=== PATIENT | male | born 1955 | race Hispanic/Latino ===

== ENCOUNTER 2017-04-05 09:19 | Inpatient (IN) | payer BC ==
[2017-04-05 10:47] LABS: Basophils % (Auto) 0.4 % (0.0-1.8); Eosinophils % (Auto) 0.2 % (0.0-4.3); Hematocrit 41.8 % (35.5-45.6); Hemoglobin 14.2 gm/dl (11.8-15.2); Mean Corpuscular HGB Conc 34 % (32-34); Mean Corpuscular Hemoglobin 30 pg (28-32); Mean Corpuscular Volume 89 fl (84-94); Platelet Count 214 K/mm3 (140-440); Red Cell Distribution Width 14.3 % (13.2-15.2); White Blood Count 10.2 K/mm3 (4.5-11.0)
--- NOTE | 2017-04-05 10:53 | Emergency Department Report ---
ED Neuro Deficit HPI - General Chief Complaint: Headache Stated Complaint: POSSIBLE CVA Time Seen by Provider: 04/05/17 10:25 Source: patient, EMS Mode of arrival: Stretcher Limitations: No Limitations - History of Present Illness Initial Comments: Patient complains of left sided "sinus headache for about a week intermittently. It became somewhat worse and he went to [facility], was seen by the emergency physician there on 04/03/2017. He was diagnosed as having a posterior headache and placed on [address] and prednisone. He states that last night (04/04/2017, he noted that he was having difficulty walking due to right sided weakness. He does not complain of any difficulty with his speech. He denies any visual change. He also denies any sensory change. -: Gradual, week(s) Location: right arm, right leg Presenting Symptoms: Present: Weak/Paralyzed One Side History of same: No Place: home Severity: mild, moderate Quality: weak Improves With: none Worsens With: none On Anticoagulants: No Context: gradual onset Associated Symptoms: denies other symptoms, other (not complaining of headache now) Treatments Prior to Arrival: none - Related Data Home Medications: Home Medications Medication Instructions Recorded Confirmed Last Taken ALPRAZolam [Xanax TAB] 0.5 mg PO BID PRN 04/05/17 04/05/17 2 Days Ago Lisinopril [Zestril] 20 mg PO QDAY 04/05/17 04/05/17 1 Day Ago Paroxetine HCl [Paxil] 10 mg PO DAILY 04/05/17 04/05/17 1 Day Ago Temazepam 30 mg PO QHS 04/05/17 04/05/17 1 Day Ago amLODIPine [Norvasc] 10 mg PO DAILY 04/05/17 04/05/17 1 Day Ago Allergies/Adverse Reactions: Allergies Allergy/AdvReac Type Severity Reaction Status Date / Time No Known Allergies Allergy Unverified 04/05/17 10:14 ED Review of Systems ROS: Stated complaint: POSSIBLE CVA Other details as noted in HPI Constitutional: denies: chills, fever Eyes: denies: eye pain, eye discharge, vision change ENT: denies: ear pain, throat pain Respiratory: denies: cough, shortness of breath, wheezing Cardiovascular: denies: chest pain, palpitations Endocrine: no symptoms reported Gastrointestinal: denies: abdominal pain, nausea, diarrhea Genitourinary: denies: urgency, dysuria Musculoskeletal: denies: back pain, joint swelling, arthralgia Skin: denies: rash, lesions Neurological: headache (headache resolved), weakness (weakness since yesterday morning). denies: paresthesias Psychiatric: denies: anxiety, depression Hematological/Lymphatic: denies: easy bleeding, easy bruising ED Past Medical Hx - Past Medical History Previous Medical History?: Yes Hx Hypertension: Yes Hx Psychiatric Treatment: (anxiety) - Surgical History Past Surgical History?: No - Social History Smoking Status: Current Every Day Smoker Substance Use Type: None - Medications Home Medications: Home Medications Medication Instructions Recorded Confirmed Last Taken Type ALPRAZolam [Xanax TAB] 0.5 mg PO BID PRN 04/05/17 04/05/17 2 Days Ago History Lisinopril [Zestril] 20 mg PO QDAY 04/05/17 04/05/17 1 Day Ago History Paroxetine HCl [Paxil] 10 mg PO DAILY 04/05/17 04/05/17 1 Day Ago History Temazepam 30 mg PO QHS 04/05/17 04/05/17 1 Day Ago History amLODIPine [Norvasc] 10 mg PO DAILY 04/05/17 04/05/17 1 Day Ago History ED Neuro Physical Exam - General Limitations: No Limitations General appearance: alert, in no apparent distress Suspected Stroke: Yes - Head Head exam: Present: atraumatic, normocephalic - Eye Eye exam: Present: normal appearance. Absent: scleral icterus - ENT ENT exam: Present: mucous membranes moist - Neck Neck exam: Present: normal inspection - Respiratory Respiratory exam: Present: normal lung sounds bilaterally. Absent: respiratory distress - Cardiovascular Cardiovascular Exam: Present: regular rate, normal rhythm. Absent: systolic murmur, diastolic murmur, rubs, gallop - GI/Abdominal GI/Abdominal exam: Present: soft, normal bowel sounds. Absent: distended, tenderness, guarding, rebound, rigid - Rectal Rectal exam: Present: deferred - Extremities Exam Extremities exam: Present: normal inspection - Back Exam Back exam: Present: normal inspection - Neurological Exam Neurological exam: Present: alert, oriented X3, motor sensory deficit. Absent: CN II-XII intact - NIHSS Assessment Interval: Baseline 1a. Level of Consciousness: alert 1b. LOC Questions: answers correctly 1c. LOC Commands: performs tasks correctly 2. Best Gaze: normal 3. Visual: no visual loss 4. Facial Palsy: normal symmetrical movement 5b. Motor Arm Right: drift 5a. Motor Arm Left: no drift 6a. Motor Leg Left: no drift 6b. Motor Leg Right: drift 7. Limb Ataxia: absent 8. Sensory: normal 9. Best Language: no aphasia 10. Dysarthria: normal 11. Extinction/Inattention: no abnormality Total Score: 2 Stroke Severity: Minor Stroke - Psychiatric Psychiatric exam: Present: normal affect, normal mood - Skin Skin exam: Present: warm, dry, intact, normal color. Absent: rash ED Course Vital Signs 04/05/17 09:48 Temperature 97.7 F Pulse Rate 62 Respiratory 16 Rate Blood Pressure 147/77 O2 Sat by Pulse 97 Oximetry - Reevaluation(s) Reevaluation #1: Patient will be given aspirin and admitted to the hospitalist service. His diagnosis is left basal ganglion stroke now subacute. 04/05/17 12:21 - Lab Data Result diagrams: 04/05/17 10:33 04/05/17 10:33 Lab Results 04/05/17 04/05/17 04/05/17 Range/Units 10:33 10:33 10:33 WBC 10.2 (4.5-11.0) K/mm3 RBC 4.70 (3.65-5.03) M/mm3 Hgb 14.2 (11.8-15.2) gm/dl Hct 41.8 (35.5-45.6) % MCV 89 (84-94) fl MCH 30 (28-32) pg MCHC 34 (32-34) % RDW 14.3 (13.2-15.2) % Plt Count 214 (140-440) K/mm3 Lymph % (Auto) 17.4 (13.4-35.0) % [place] % (Auto) 8.4 H (0.0-7.3) % Eos % (Auto) 0.2 (0.0-4.3) % Baso % (Auto) 0.4 (0.0-1.8) % Lymph # 1.8 (1.2-5.4) K/mm3 [place] # 0.9 H (0.0-0.8) K/mm3 Eos # 0.0 (0.0-0.4) K/mm3 Baso # 0.0 (0.0-0.1) K/mm3 Seg Neutrophils % 73.6 H (40.0-70.0) % Seg Neutrophils # 7.5 (1.8-7.7) K/mm3 PT 13.9 (12.2-14.9) Sec. INR 1.08 (0.87-1.13) APTT 28.6 (24.2-36.6) Sec. Thrombin Time (15.1-19.6) Sec. Sodium 139 (137-145) mmol/L Potassium 3.8 (3.6-5.0) mmol/L Chloride 101.4 (98-107) mmol/L Carbon Dioxide 27 (22-30) mmol/L Anion Gap 14 mmol/L BUN 15 (9-20) mg/dL Creatinine 1.0 (0.8-1.5) mg/dL Estimated GFR > 60 ml/min BUN/Creatinine Ratio 15.00 % Glucose 103 H (75-100) mg/dL Calcium 10.0 (8.4-10.2) mg/dL Troponin T < 0.010 (0.00-0.029) ng/mL 04/05/17 Range/Units 10:33 WBC (4.5-11.0) K/mm3 RBC (3.65-5.03) M/mm3 Hgb (11.8-15.2) gm/dl Hct (35.5-45.6) % MCV (84-94) fl MCH (28-32) pg MCHC (32-34) % RDW (13.2-15.2) % Plt Count (140-440) K/mm3 Lymph % (Auto) (13.4-35.0) % [place] % (Auto) (0.0-7.3) % Eos % (Auto) (0.0-4.3) % Baso % (Auto) (0.0-1.8) % Lymph # (1.2-5.4) K/mm3 [place] # (0.0-0.8) K/mm3 Eos # (0.0-0.4) K/mm3 Baso # (0.0-0.1) K/mm3 Seg Neutrophils % (40.0-70.0) % Seg Neutrophils # (1.8-7.7) K/mm3 PT (12.2-14.9) Sec. INR (0.87-1.13) APTT (24.2-36.6) Sec. Thrombin Time 16.0 (15.1-19.6) Sec. Sodium (137-145) mmol/L Potassium (3.6-5.0) mmol/L Chloride (98-107) mmol/L Carbon Dioxide (22-30) mmol/L Anion Gap mmol/L BUN (9-20) mg/dL Creatinine (0.8-1.5) mg/dL Estimated GFR ml/min BUN/Creatinine Ratio % Glucose (75-100) mg/dL Calcium (8.4-10.2) mg/dL Troponin T (0.00-0.029) ng/mL - EKG Data -: EKG Interpreted by Me EKG shows normal: sinus rhythm Rate: normal Interpretation: LVH (consistent with LVH and repolarization abnormality. Rhythm is low atrial.) - Radiology Data Radiology results: report reviewed interpreted by me: Left basal ganglion hypodensity consistent with subacute stroke. Critical care attestation.: If time is entered above; I have spent that time in minutes in the direct care of this critically ill patient, excluding procedure time. ED Disposition Clinical Impression: CVA (cerebral vascular accident) Qualifiers: CVA mechanism: unspecified Qualified Code(s): I63.9 - Cerebral infarction, unspecified Disposition: OP ADMIT IP TO THIS HOSP Is pt being admited?: Yes Does the pt Need Aspirin: Yes Condition: Stable Referrals: PRIMARY CARE, [Primary Care Provider] - 3-5 Days Time of Disposition: 12:23
[2017-04-05 10:56] LABS: INR 1.08 (0.87-1.13)
[2017-04-05 10:57] LABS: Partial Thromboplastin Time 28.6 Sec. (24.2-36.6)
[2017-04-05 11:01] LABS: Anion Gap 14 mmol/L; Blood Urea Nitrogen 15 mg/dL (9-20); Carbon Dioxide 27 mmol/L (22-30); Chloride 101.4 mmol/L (98-107); Glucose 103 mg/dL (75-100); Potassium 3.8 mmol/L (3.6-5.0); Sodium 139 mmol/L (137-145)
--- NOTE | 2017-04-05 11:19 | Cat Scan Report ---
CT HEAD WITHOUT CONTRAST: 04/05/17 09:19:00 CLINICAL: Neuro deficits less than six hours or symptoms present upon wakening. TECHNIQUE: 2.5-mm noncontrast scans. COMPARISON:None FINDINGS: The ventricles and sulci are normal for age.A 1.2 cm irregular shaped hypodensity of the left putamen is identified on several images and is suspicious for an acute or subacute infarct. No mass or mass effect. No hemorrhage. No extra-axial collection. Several bilateral chronic basal ganglia lacunar infarcts and bilateral centrum semiovale ovale lacunar infarcts.. The sinuses are clear. Normal orbits and soft tissues. The calvarium and skull base are intact. IMPRESSION: Left basal ganglia hypodensity suspicious for an acute or subacute nonhemorrhagic infarct. Several bilateral basal ganglia and white matter chronic lacunar infarcts.
--- NOTE | 2017-04-05 12:47 | XRay Report ---
AP CHEST :04/05/17 CLINICAL: Hypertension. COMPARISON:None. FINDINGS: Normal heart and pulmonary vasculature. Prominent bilateral lung markings and bibasal reticular interstitial opacities. No airspace disease or pleural effusion. The bones and soft tissues are normal. IMPRESSION: Probably chronic bibasal reticular lung opacities.No CHF or pneumonia.
--- NOTE | 2017-04-05 14:23 | History and Physical Report ---
History of Present Illness Chief complaint: I could not move my right side at all, but now im better History of present illness: 61 YO Male with HTN, Anxiety, Nicotine Dependence presents to ED for evaluation. Pt states that he has been experiencing headaches for the past week , and was seen at [facility], by the emergency physician there on 2016. He was diagnosed as having a cluster headache and placed on [place] and prednisone. Pt states that symptoms have persisted over the past week with worsening symptoms overnight. Pt states that he experienced right sided weakness last night. Pt states that he was unable to walk, and could not use his right side. Pt denies fever, chills, CP, Palpitations, NVD, syncope, vision changes, or recent ill contacts. Past History Past Medical History: hypertension, other (anxiety, nicotine dep) Past Surgical History: No surgical history, Other (reviewed) Social history: single, smoking. denies: alcohol abuse, prescription drug abuse , IV drug use Family history: hypertension Medications and Allergies Allergies Allergy/AdvReac Type Severity Reaction Status Date / Time No Known Allergies Allergy Verified 04/05/17 15:48 Home Medications Medication Instructions Recorded Confirmed Last Taken Type ALPRAZolam [Xanax TAB] 0.5 mg PO BID PRN 04/05/17 04/05/17 2 Days Ago History Lisinopril [Zestril] 20 mg PO QDAY 04/05/17 04/05/17 1 Day Ago History Paroxetine HCl [Paxil] 10 mg PO DAILY 04/05/17 04/05/17 1 Day Ago History Temazepam 30 mg PO QHS 04/05/17 04/05/17 1 Day Ago History amLODIPine [Norvasc] 10 mg PO DAILY 04/05/17 04/05/17 1 Day Ago History Review of Systems All systems: negative Constitutional: weakness Exam - Constitutional Vitals: Temp Pulse Resp BP Pulse Ox 97.7 F 62 16 147/77 97 04/05/17 09:48 04/05/17 09:48 04/05/17 09:48 04/05/17 09:48 04/05/17 09:48 General appearance: Present: mild distress - EENT Eyes: Present: PERRL ENT: hearing intact, clear oral mucosa - Neck Neck: Present: supple, normal ROM - Respiratory Respiratory effort: normal Respiratory: bilateral: CTA - Cardiovascular Heart Sounds: Present: S1 & S2. Absent: rub, click - Extremities Extremities: pulses symmetrical, No edema Peripheral Pulses: within normal limits - Abdominal General gastrointestinal: Present: soft, non-tender, non-distended, normal bowel sounds Male genitourinary: Present: normal - Integumentary Integumentary: Present: clear, warm, dry - Musculoskeletal Musculoskeletal: right sided weakness - Psychiatric Psychiatric: appropriate mood/affect, intact judgment & insight - Neurologic Neurologic: CNII-XII intact, moves all extremities, no gait normal Results - Labs CBC & Chem 7: 04/05/17 10:33 04/05/17 10:33 Labs: Abnormal lab results 04/05/17 04/05/17 Range/Units 10:33 10:33 [place] % (Auto) 8.4 H (0.0-7.3) % [place] # 0.9 H (0.0-0.8) K/mm3 Seg Neutrophils % 73.6 H (40.0-70.0) % Glucose 103 H (75-100) mg/dL Assessment and Plan - Patient Problems (1) CVA (cerebral vascular accident) Current Visit: Yes Status: Acute Qualifiers: CVA mechanism: unspecified Precerebral and cerebral artery: P Laterality of affected vessel: L Qualified Code(s): I63.9 - Cerebral infarction, unspecified Plan to address problem: Stroke protocol: CT head, MRI/MRA brain, PT/OT/Speech therapy, antiplatelet therpay, hold BP medication, monitor bp q shift, permissive htn with systolic between 160-180. (2) Hemiparesis affecting dominant side as late effect of cerebrovascular accident Current Visit: Yes Status: Acute Plan to address problem: Pt consulted, supportive care. (3) HTN (hypertension) Current Visit: Yes Status: Acute Qualifiers: Hypertension type: H Plan to address problem: monitor bp q shift, permissive htn s/p cva. supportive care. (4) Nicotine dependence with withdrawal Current Visit: Yes Status: Acute Qualifiers: Nicotine product type: N Plan to address problem: Pt counseled, supportive care. (5) DVT prophylaxis Current Visit: Yes Status: Acute
[2017-04-05] MEDS ORDERED: ZOFRAN IV PRN (15:29)
[2017-04-05] MEDS ORDERED: SODIUM CHLORIDE FLUSH SYRINGE 10 ML IV PRN (15:29)
[2017-04-05] MEDS ORDERED: TYLENOL PO PRN (15:29)
[2017-04-05] MEDS: ZOCOR PO SCH (22:22)
[2017-04-05] MEDS: RESTORIL PO SCH (22:22)
[2017-04-05] MEDS: HABITROL TD SCH (22:23)
--- NOTE | 2017-04-06 08:23 | Progress Note ---
Assessment and Plan Assessment and plan: --acute CVA with right lower extremity weakness Not a candidate for TPA, neuro workup is in progress CT head without contrast; left basal ganglion hypodensity suspicious for acute or subacute nonhemorrhagic infarct, cerebral bilateral basal ganglia white matter chronic lacunar infarcts MRI of the brain; focal 80 of acute to subacute ischemia in the left basal ganglia, specious early chronic focal infarct or focus of demyelination and corpus callosum on the right side MRA brain: No muscle study Carotid Doppler; no hemodynamically significant stenosis Current therapy occupational therapy rehabilitation, aspirin and statin Neurology evaluation Follow echocardiogram --Hypertension; continue current antihypertensives Permissive hypertension per protocol --Dyslipidemia; continue lipid-lowering medication --Ongoing tobacco use; smoking cessation counseling done Patient strongly advised to quit tobacco use, nicotine patch as needed --DVT prophylaxis with Lovenox DC planning to case management Closely monitor the patient and adjust the management as needed Plan of care, reports of the tests discussed with the patient, family members at the bedside as well as his nurse History Interval history: Patient seen and evaluated medical records reviewed Admitted with acute CVA, neuro workup is in progress Patient feels slight right lower extremity weakness Denies any chest pain shortness of breath Alert awake oriented 3 not in acute distress Hospitalist Physical - Constitutional Vitals: Temp Pulse Resp BP Pulse Ox 97.8 F 48 L 20 141/63 100 04/06/17 04:48 04/06/17 04:48 04/06/17 04:48 04/06/17 04:48 04/06/17 04:48 General appearance: Present: no acute distress, well-nourished - EENT Eyes: Present: PERRL, EOM intact - Neck Neck: Present: supple, normal ROM - Respiratory Respiratory effort: normal Respiratory: negative: rales, rhonchi, wheezing - Cardiovascular Rhythm: regular Heart Sounds: Present: S1 & S2 - Extremities Extremities: no ischemia, pulses intact, pulses symmetrical Peripheral Pulses: within normal limits - Abdominal General gastrointestinal: soft, non-tender, non-distended, normal bowel sounds - Integumentary Integumentary: Present: clear, warm - Psychiatric Psychiatric: appropriate mood/affect, cooperative - Neurologic Neurologic: CNII-XII intact, other (right lower extremity weakness) Results - Labs CBC & Chem 7: 04/05/17 10:33 04/05/17 10:33 Labs: Laboratory Last Values WBC 10.2 K/mm3 (4.5-11.0) 04/05/17 10:33 RBC 4.70 M/mm3 (3.65-5.03) 04/05/17 10:33 Hgb 14.2 gm/dl (11.8-15.2) 04/05/17 10:33 Hct 41.8 % (35.5-45.6) 04/05/17 10:33 MCV 89 fl (84-94) 04/05/17 10:33 MCH 30 pg (28-32) 04/05/17 10:33 MCHC 34 % (32-34) 04/05/17 10:33 RDW 14.3 % (13.2-15.2) 04/05/17 10:33 Plt Count 214 K/mm3 (140-440) 04/05/17 10:33 Lymph % (Auto) 17.4 % (13.4-35.0) 04/05/17 10:33 [place] % (Auto) 8.4 % (0.0-7.3) H 04/05/17 10:33 Eos % (Auto) 0.2 % (0.0-4.3) 04/05/17 10:33 Baso % (Auto) 0.4 % (0.0-1.8) 04/05/17 10:33 Lymph # 1.8 K/mm3 (1.2-5.4) 04/05/17 10: [place] # 0.9 K/mm3 (0.0-0.8) H 04/05/17 10:33 Eos # 0.0 K/mm3 (0.0-0.4) 04/05/17 10:33 Baso # 0.0 K/mm3 (0.0-0.1) 04/05/17 10:33 Seg Neutrophils % 73.6 % (40.0-70.0) H 04/05/17 10: Seg Neutrophils # 7.5 K/mm3 (1.8-7.7) 04/05/17 10:33 PT 13.9 Sec. (12.2-14.9) 04/05/17 10:33 INR 1.08 (0.87-1.13) 04/05/17 10:33 APTT 28.6 Sec. (24.2-36.6) 04/05/17 10:33 Thrombin Time 16.0 Sec. (15.1-19.6) 04/05/17 10:33 Sodium 139 mmol/L (137-145) 04/05/17 10:33 Potassium 3.8 mmol/L (3.6-5.0) 04/05/17 10:33 Chloride 101.4 mmol/L (98-107) 04/05/17 10:33 Carbon Dioxide 27 mmol/L (22-30) 04/05/17 10:33 Anion Gap 14 mmol/L 04/05/17 10:33 BUN 15 mg/dL (9-20) 04/05/17 10:33 Creatinine 1.0 mg/dL (0.8-1.5) 04/05/17 10:33 Estimated GFR > 60 ml/min 04/05/17 10:33 BUN/Creatinine Ratio 15.00 % 04/05/17 10:33 Glucose 103 mg/dL (75-100) H 04/05/17 10:33 Calcium 10.0 mg/dL (8.4-10.2) 04/05/17 10:33 Troponin T < 0.010 ng/mL (0.00-0.029) 04/05/17 10:33
[2017-04-06] MEDS: ASPIRIN PO SCH (09:41)
[2017-04-06] MEDS: XANAX PO PRN ×2 (09:41→17:16)
[2017-04-06] MEDS: HABITROL TD SCH (09:42)
[2017-04-06] MEDS: PAXIL PO SCH (09:42)
--- NOTE | 2017-04-06 10:57 | Magnetic Resonance Report ---
MRI OF THE BRAIN WITHOUT CONTRAST: HISTORY: Stroke PROCEDURE: Multiplanar, multisequence MR imaging of the brain without IV contrast was performed. FINDINGS: A small area of diffusion restriction in the posterior left basal ganglia measures up to 1.7 x 0.9 cm in axial plane. This area of ischemia extends to the left noe radiata. There is no evidence for hemorrhage, mass or mass effect. There is also an approximate 1 cm area of questionable or weak diffusion signal in the splenium of the corpus callosum on the right side. This may represent a subacute to early chronic area of ischemia or focus of demyelination. Please correlate with the clinical history the patient. There are moderate nonspecific chronic white matter changes bilaterally. No large chronic infarct. No extra axial fluid collection. The midline structures are central. The basal cisterns are patent. Normal ventricular size. The orbital cavities and sella turcica demonstrate no abnormality. The visualized paranasal sinuses and mastoid air cells are well aerated. IMPRESSION: Focal area of acute to subacute ischemia in the left basal ganglia as described above. Slightly suspicious signal in the splenium of the corpus callosum on the right side as outlined above. This may represent an early chronic focal infarct or focus of demyelination. Nonspecific chronic white matter changes.
--- NOTE | 2017-04-06 10:57 | Magnetic Resonance Report ---
MRA HEAD WITHOUT CONTRAST HISTORY: Stroke. [id number] imaging with MIP reformations of the point lay [place] of [place] is submitted. The arteries appear widely patent and free of hemodynamically significant stenosis or aneurysm dilatation. Both vertebral arteries are identified appearing patent as well. IMPRESSION: Unremarkable MRA head.
[2017-04-06] MEDS: RESTORIL PO SCH ×2 (22:45→23:05)
[2017-04-06] MEDS: ZOCOR PO SCH (23:05)
--- NOTE | 2017-04-07 03:45 | Admit Criteria Form ---
Admission Criteria Documentation: TELEMETRY CARE Telemetry Admission Guidelines (Place 'X' for any and all applicable criteria): Admission to telemetry [A] may be indicated for ANY ONE of the following(1)(2)(3 )(4)(5): [ ]I. Cardiac disease, including ANY ONE of the following (9)(10)(11)(12)(13 ): [ ]a) Postacute TX [ ]b) Low-risk patients with ST-segment elevation TX who have undergone successful percutaneous coronary intervention [ ]c) Unstable angina [ ]d) Suspected TX (until it is ruled out) [ ]e) Post cardiac surgery (first 48 to 72 hours unless complications occur) [ ]f) Acute arrhythmias (including significant tachycardia or bradycardia) [B] [ ]g) Firing of an implantable cardioverter defibrillator [C] [ ]h) Suspected pacemaker or implantable cardioverter defibrillator malfunction (10) [ ]i) New administration or adjustment of an antiarrhythmic drug [D ] [ ]j) Child admitted for acute congestive heart failure [ ]j) Long QT syndrome [ ]k) Advanced heart block (eg, second-degree Mobitz type II, third- degree heart block) [ ]l) Acute myocarditis or pericarditis [ ]m) Short-term (ambulatory or inpatient) monitoring after a cardiac procedure as indicated by ANY ONE of the following [E]: [ ]i) Electrophysiologic studies [ ]ii) Percutaneous coronary intervention with stent placement [ ]iii) Pacemaker placement with cardiac conduction defect [ ]iv) Implantable cardiac defibrillator placement [ ]II. Drug overdose or poisoning with substance that causes arrhythmias or QT prolongation (eg, phenothiazines, sympathomimetic agents, cyclic antidepressants, digitalis, antiarrhythmic drugs)(15) [ ]III. Short-term (ambulatory or inpatient) monitoring after therapeutic or diagnostic procedure requiring conscious sedation or anesthesia (eg, endoscopy, elective cardioversion) [X ]IV. Acute cerebrovascular even[F](18) [ ]V. Massive blood transfusion (eg, at least 10 units of packed red blood cells in 24 hours) [ ]. Variceal bleeding after endoscopy, sclerotherapy, or IV vasopressin [ ]VII. Uncorrected electrolyte abnormalities associated with an increased risk of dangerous arrhythmia [G]; examples include [ ]a) Hyperkalemia with attributable ECG changes [ ]b) Potassium greater than 6.5 mmol/L (mEq/L) in a patient without history of chronic renal disease [ ]c) Prolonged QT attributed to hypokalemia, hypomagnesemia, or hypocalcemia [ ]VIII.Unexplained syncope or other neurologic event suspected of being due to arrhythmia due to a finding that increases risk; examples include(19)(20)(21): [ ]a) High-risk ECG findings (eg, bifascicular block, bradycardia, abnormal QT interval, ventricular pre- excitation) [ ]b) History of previous syncope due to arrhythmia [ ]c) Abnormal ventricular function (eg, reduced ejection fraction ) [ ]d) Exertional or supine syncope [ ]e) Concerning syncope characteristics (eg, sudden loss of consciousness without prodrome) [ ]f) Family history of sudden [ ]g) Use of arrhythmogenic medication [ ]h) Suspected cardiac ischemia [ ]i) Known channelopathy (eg, long QT syndrome, Brugada syndrome, or catecholaminergic paroxysmal ventricular tachycardia) [ ]j) Known structural heart disease (eg, hypertrophic cardiomyopathy , severe valvular disease) [ ]k) Palpitations preceding syncope The original [employer] content created by [employer] has been revised. The portions of the content which have been revised are identified through the use of italic text or in bold, and [employer] has neither reviewed nor approved the modified material. All other unmodified content is copyright [employer]. Please see references footnoted in the original [employer] edition 2016 Admission Criteria Met: Yes
[2017-04-07] MEDS: ASPIRIN PO SCH (10:06)
[2017-04-07] MEDS: PAXIL PO SCH (10:07)
[2017-04-07] MEDS: HABITROL TD SCH (10:07)
--- NOTE | 2017-04-07 11:59 | Consultation ---
History of Present Illness - Reason for Consult Consult date: 04/07/17 Evaluate for Acute IRU - History of Present Illness 61 y.o. male who presented to [facility] ED secondary to acute onset of right side weakness. Pt also with associated headache, left ear pain and blurry vision. CT Brain suspicious for acute/subacute CVA at left basal ganglia; confirmed on MRI. Right sided weakness has improved, however, pt noted to have functional deficits with self cares and mobility. Consult requested for post-acute placement recommendations. Past History Past Medical History: hypertension, other (anxiety, nicotine dep) Past Surgical History: hernia repair (umbilical) Social history: single (lives with a roommate), smoking. denies: alcohol abuse , IV drug use Family history: CAD, hypertension Medications and Allergies Allergies Allergy/AdvReac Type Severity Reaction Status Date / Time No Known Allergies Allergy Verified 04/05/17 15:48 Home Medications Medication Instructions Recorded Confirmed Last Taken Type ALPRAZolam [Xanax TAB] 0.5 mg PO BID PRN 04/05/17 04/05/17 2 Days Ago History Lisinopril [Zestril] 20 mg PO QDAY 04/05/17 04/05/17 1 Day Ago History Paroxetine HCl [Paxil] 10 mg PO DAILY 04/05/17 04/05/17 1 Day Ago History Temazepam 30 mg PO QHS 04/05/17 04/05/17 1 Day Ago History amLODIPine [Norvasc] 10 mg PO DAILY 04/05/17 04/05/17 1 Day Ago History Active Meds: Active Medications Acetaminophen (Tylenol) 650 mg PO Q4H PRN PRN Reason: Pain, Mild (1-3) Alprazolam (Xanax) 0.5 mg PO BID PRN PRN Reason: Anxiety Last Admin: 04/06/17 17:16 Dose: 0.5 mg Aspirin (Aspirin) 325 mg PO QDAY [facility] Last Admin: 04/07/17 10:06 Dose: 325 mg Nicotine (Habitrol) 21 mg TD QDAY [facility] Last Admin: 04/07/17 10:07 Dose: 21 mg Ondansetron HCl (Zofran) 4 mg IV Q8H PRN PRN Reason: N/V unrelieved by Heather Paroxetine HCl (Paxil) 10 mg PO DAILY [facility] Last Admin: 04/07/17 10:07 Dose: 10 mg Simvastatin (Zocor) 20 mg PO QHS [facility] Last Admin: 04/06/17 23:05 Dose: 20 mg Sodium Chloride (Sodium Chloride Flush Syringe 10 Ml) 10 ml IV PRN PRN PRN Reason: LINE FLUSH Temazepam (Restoril) 30 mg PO QHS [facility] Last Admin: 04/06/17 23:05 Dose: 30 mg Review of Systems All systems: negative Eyes: left: blurred vision Ears, nose, mouth and throat: ear pain (left ear) Cardiovascular: no chest pain Respiratory: no cough Gastrointestinal: no nausea, no vomiting Genitourinary Male: no dysuria Neurological: balance difficulties, gait dysfunction Exam - Constitutional Vitals: Vital Signs - 12hr 04/07/17 04/07/17 04/07/17 00:48 04:00 10:00 Temperature 98.2 F 97.5 F L Pulse Rate Pulse Rate [ 51 L 52 L Right Radial] Respiratory 18 18 Rate Blood Pressure 132/70 136/71 [Right Radial Artery] O2 Sat by Pulse 98 98 97 Oximetry 04/07/17 10:32 Temperature Pulse Rate 54 L Pulse Rate [ Right Radial] Respiratory Rate Blood Pressure [Right Radial Artery] O2 Sat by Pulse Oximetry General appearance: no acute distress - EENT Eyes: EOM intact ENT: hearing intact - Neck Neck: supple, normal ROM - Respiratory Respiratory effort: normal Respiratory: bilateral: CTA - Cardiovascular Rhythm: regular Heart Sounds: Present: S1 & S2 - Extremities Extremities: No edema - Gastrointestinal General gastrointestinal: Present: soft, non-tender, non-distended, normal bowel sounds - Musculoskeletal Musculoskeletal: right sided weakness (right arm drift; ataxic at RLE) - Neurologic Neurologic: CNII-XII intact, other (sendation grossly intact) - Psychiatric Psychiatric: appropriate mood/affect, intact judgment & insight, memory intact, cooperative - Allied health notes Allied health notes reviewed: PT ([facility]/CGA for gait; SBA/S for transfers on evaluation; pending F/U visit), OT (I-[facility] for ADLs on evaluation; follow up visit in progress) FIMS assesment as documented by PT/OT/ST: Locomotion- walk/wheelchair Ambulation Distance 70 - Labs CBC & Chem 7: 04/05/17 10:33 04/05/17 10:33 Labs: Laboratory Results - last 72 hr 04/06/17 08:01 Triglycerides 143 Cholesterol 170 LDL Cholesterol Direct 98 HDL Cholesterol 44 Cholesterol/HDL Ratio 3.86 Assessment and Plan Patient was assessed and evaluated for Acute Inpatient Rehab Unit. 61 y.o. male with acute/subacute left basal ganglia CVA; improving right hemiparesis, gait dysfunction. Rehab options discussed with patient on today. Pt previously independent; lives with roommate, however, is home alone during the day. Pt may benefit from short course on IRU to improve balance, strength; independence with ADLs and gait; limit falls risk. Pending TTE results for further neurology recommendations. Functionally, pt noted to require s/u to [facility] for ADLs with noted loss of balance; CGA for transfers and gait. Ongoing medical management for HTN. Anticipate IRU admission when medically cleared. - Patient Problems (1) CVA (cerebral vascular accident) Current Visit: Yes Status: Acute Qualifiers: CVA mechanism: unspecified Precerebral and cerebral artery: P Laterality of affected vessel: L Qualified Code(s): I63.9 - Cerebral infarction, unspecified (2) Abnormality of gait following cerebrovascular accident (CVA) Current Visit: Yes Status: Acute (3) Hemiparesis affecting dominant side as late effect of cerebrovascular accident Current Visit: Yes Status: Acute (4) HTN (hypertension) Current Visit: Yes Status: Acute Qualifiers: Hypertension type: essential hypertension Qualified Code(s): I10 - Essential (primary) hypertension
--- NOTE | 2017-04-07 12:05 | Consultation ---
History of Present Illness Consult date: 04/07/17 Requesting physician: DEX KNIGHT Reason for Consult: stroke Chief complaint: R side weakness History of present illness: 61 YO M hx HTN/Tob abuse on ASa 81mg QDay p/w R sided weakness he awoke with on 04/05 8 AM. Sx are constant. There are no clear aggravating, relieving or temporal factors. Severity was enough to cause inability to effectively use the right side. Past History Past Medical History: hypertension, other (anxiety, nicotine dep) Past Surgical History: hernia repair (umbilical) Social history: single (lives with a roommate), smoking. denies: alcohol abuse , IV drug use Family history: CAD, hypertension Medications and Allergies Allergies Allergy/AdvReac Type Severity Reaction Status Date / Time No Known Allergies Allergy Verified 04/05/17 15:48 Home Medications Medication Instructions Recorded Confirmed Last Taken Type ALPRAZolam [Xanax TAB] 0.5 mg PO BID PRN 04/05/17 04/05/17 2 Days Ago History Lisinopril [Zestril] 20 mg PO QDAY 04/05/17 04/05/17 1 Day Ago History Paroxetine HCl [Paxil] 10 mg PO DAILY 04/05/17 04/05/17 1 Day Ago History Temazepam 30 mg PO QHS 04/05/17 04/05/17 1 Day Ago History amLODIPine [Norvasc] 10 mg PO DAILY 04/05/17 04/05/17 1 Day Ago History Active Meds: Active Medications Acetaminophen (Tylenol) 650 mg PO Q4H PRN PRN Reason: Pain, Mild (1-3) Alprazolam (Xanax) 0.5 mg PO BID PRN PRN Reason: Anxiety Last Admin: 04/06/17 17:16 Dose: 0.5 mg Clopidogrel Bisulfate (Plavix) 75 mg PO QDAY [facility] Nicotine (Habitrol) 21 mg TD QDAY [facility] Last Admin: 04/07/17 10:07 Dose: 21 mg Ondansetron HCl (Zofran) 4 mg IV Q8H PRN PRN Reason: N/V unrelieved by Reglan Paroxetine HCl (Paxil) 10 mg PO DAILY [facility] Last Admin: 04/07/17 10:07 Dose: 10 mg Simvastatin (Zocor) 20 mg PO QHS [facility] Last Admin: 04/06/17 23:05 Dose: 20 mg Sodium Chloride (Sodium Chloride Flush Syringe 10 Ml) 10 ml IV PRN PRN PRN Reason: LINE FLUSH Temazepam (Restoril) 30 mg PO QHS [facility] Last Admin: 04/06/17 23:05 Dose: 30 mg Review of Systems All systems: negative Neurological: weakness, change in speech (slurred), gait dysfunction, motor disturbance, no parathesias, no numbness, no tingling, no syncope, no headaches , no aphasia, no sensory deficit, no double vision Physical Examination - Vital Signs Vital Signs: Vital Signs Temp Pulse Resp BP Pulse Ox 97.7 F 62 16 147/77 97 04/05/17 09:48 04/05/17 09:48 04/05/17 09:48 04/05/17 09:48 04/05/17 09:48 - Constitutional General appearance: comfortable, older than stated age - EENT EENT: Present: ATNC, PERRL, mucous membranes moist, hearing intact, vision intact - Respiratory Respiratory: Present: chest non-tender, normal breath sounds, no respiratory distress - Cardiovascular Cardiovascular: Present: regular rate Extremities: Present: no peripheral edema bilatateraly, no clubbing, cyanosis, no inflammation, no ischemia or petechiae - Gastrointestinal Gastrointestinal: Present: normoactive bowel sounds, soft, non-distended - Integumentary Integumentary: Present: normal - Neurologic Cranial nerve examination: PERRL, EOMI, VFF, V1/V2/V3 grossly intact, face symmetric, tongue midline, intact, Intact Vestibulo-ocular r, intact corneal reflex, facial droop (on R mild), normal palatal elevation Speech examination: other (slurred speech) Sensorimotor examination: pronator drift (R pronator drift), hemiparesis (on R) Detailed motor examination: grossly full strength in Motor examination - right side: 55: biceps, triceps, wrist flexion, wrist extension, dish machine operator, hip flexors, knee extensors, dorsiflexion, toe extension (EHL) , plantarflexion Motor examination - left side: 55: biceps, triceps, wrist flexion, wrist extension, dish machine operator, hip flexors, knee extensors, dorsiflexion, toe extension (EHL) , plantarflexion Detailed sensory examination: intact, light touch, temperature Reflex and gait examination: Babinski's sign (on R) Reflexes: 0: ankle, 3+: bicep, knee, tricep Cerebellar examination: ataxia (on RUE/LE ) - Musculoskeletal Musculoskeletal: Present: no fluid collection, no pain, normal range of motion - Psychiatric Psychiatric: Present: mood/affect appropriate, cooperative Results - Laboratory Findings CBC and BMP: 04/05/17 10:33 04/05/17 10:33 Assessment and Plan 61 YO M hx HTN/Tob abuse on ASA 81mg QDay p/w R ataxic hemiparesis syndrome confirmed on MRI brain as L basal ganglia acute lacunar appearing infarction. CDs neg. LDL 98. MRA Head neg. TTE result pending. Plan and Recommendation: 1. No indication for pharmacologic thrombolysis with IV tPA or mechanical thrombectomy due to last known normal > 6 hrs from presentation. Current NIHSS 4. 2. Telemetry bed w/ Q4 hour neuro checks 3. TTE to eval for possible cardiac source of embolism result 4. Autoregulate SBP to goal 120-160 as pt is outside permissive HTN window. 5. Secondary stroke prevention: D/C ASA. Start Plavix 75mg QDay. Upgrade to full dose statin therapy (Crestor 20mg or 40mg OR Lipitor 40mg or 80mg Daily OR Zocor 40mg QDay) for goal LDL < 70. 6. F/E/N: isotonic IVF prn, prn replete, bedside speech/swallow eval prior to PO intake. 7. DVT Prophylaxis 8. Stroke education, PT/OT/Speech Therapy consults, CM evaluation 9. For any changes in neurologic status, pls obtain STAT CTH w/o contrast and call neurology 10. If pt remains stable and TTE w/o acute thrombus, no neurologic contraindication to discharge w/ outpt neuro follow up.
[2017-04-07] MEDS: XANAX PO PRN (16:23)
--- NOTE | 2017-04-07 17:28 | Progress Note ---
Assessment and Plan Assessment and plan: --acute CVA with right lower extremity weakness Not a candidate for TPA, neuro workup is in progress, antiplatelets and statins CT head without contrast; left basal ganglion hypodensity suspicious for acute or subacute nonhemorrhagic infarct, cerebral bilateral basal ganglia white matter chronic lacunar infarcts MRI of the brain; focal area of acute to subacute ischemia in the left basal ganglia, specious early chronic focal infarct or focus of demyelination and corpus callosum on the right side MRA brain: No muscle study Carotid Doppler; no hemodynamically significant stenosis --physical therapy occupational therapy rehabilitation, aspirin and statin Neurology evaluation noted and appreciated Follow echocardiogram --Hypertension; continue current antihypertensives Permissive hypertension per protocol --Dyslipidemia; continue lipid-lowering medication --Ongoing tobacco use; smoking cessation counseling done Patient strongly advised to quit tobacco use, nicotine patch as needed --DVT prophylaxis with Lovenox DC planning to case management Closely monitor the patient and adjust the management as needed Plan of care, reports of the tests discussed with the patient, family members at the bedside as well as his nurse History Interval history: Since seen and evaluated medical records reviewed No new events reported by the nursing staff Admitted with acute CVA, neuro workup is in progress Alert awake oriented 3 not in acute distress, vital signs reviewed Hospitalist Physical - Constitutional Vitals: Temp Pulse Resp BP Pulse Ox 97.5 F L 54 L 18 136/71 97 04/07/17 04:00 04/07/17 10:32 04/07/17 04:00 04/07/17 04:00 04/07/17 10:00 General appearance: Present: no acute distress, cachectic - EENT Eyes: Present: PERRL, EOM intact - Neck Neck: Present: supple, normal ROM - Respiratory Respiratory effort: normal Respiratory: bilateral: diminished, negative: rales, rhonchi, wheezing - Cardiovascular Rhythm: regular Heart Sounds: Present: S1 & S2 - Extremities Extremities: no ischemia, pulses intact, pulses symmetrical Peripheral Pulses: within normal limits - Abdominal General gastrointestinal: soft, non-tender, non-distended, normal bowel sounds - Integumentary Integumentary: Present: clear, warm - Psychiatric Psychiatric: appropriate mood/affect, cooperative - Neurologic Neurologic: other (right lower extremity weakness) Results - Labs CBC & Chem 7: 04/05/17 10:33 04/05/17 10:33 Labs: Laboratory Last Values WBC 10.2 K/mm3 (4.5-11.0) 04/05/17 10:33 RBC 4.70 M/mm3 (3.65-5.03) 04/05/17 10:33 Hgb 14.2 gm/dl (11.8-15.2) 04/05/17 10:33 Hct 41.8 % (35.5-45.6) 04/05/17 10:33 MCV 89 fl (84-94) 04/05/17 10: MCH 30 pg (28-32) 04/05/17 10: MCHC 34 % (32-34) 04/05/17 10: RDW 14.3 % (13.2-15.2) 04/05/17 10: Plt Count 214 K/mm3 (140-440) 04/05/17 10:33 Lymph % (Auto) 17.4 % (13.4-35.0) 04/05/17 10:33 [place] % (Auto) 8.4 % (0.0-7.3) H 04/05/17 10:33 Eos % (Auto) 0.2 % (0.0-4.3) 04/05/17 10:33 Baso % (Auto) 0.4 % (0.0-1.8) 04/05/17 10:33 Lymph # 1.8 K/mm3 (1.2-5.4) 04/05/17 10:33 [place] # 0.9 K/mm3 (0.0-0.8) H 04/05/17 10:33 Eos # 0.0 K/mm3 (0.0-0.4) 04/05/17 10:33 Baso # 0.0 K/mm3 (0.0-0.1) 04/05/17 10:33 Seg Neutrophils % 73.6 % (40.0-70.0) H 04/05/17 10: Seg Neutrophils # 7.5 K/mm3 (1.8-7.7) 04/05/17 10:33 PT 13.9 Sec. (12.2-14.9) 04/05/17 10:33 INR 1.08 (0.87-1.13) 04/05/17 10:33 APTT 28.6 Sec. (24.2-36.6) 04/05/17 10:33 Thrombin Time 16.0 Sec. (15.1-19.6) 04/05/17 10:33 Sodium 139 mmol/L (137-145) 04/05/17 10:33 Potassium 3.8 mmol/L (3.6-5.0) 04/05/17 10:33 Chloride 101.4 mmol/L (98-107) 04/05/17 10:33 Carbon Dioxide 27 mmol/L (22-30) 04/05/17 10:33 Anion Gap 14 mmol/L 04/05/17 10:33 BUN 15 mg/dL (9-20) 04/05/17 10:33 Creatinine 1.0 mg/dL (0.8-1.5) 04/05/17 10:33 Estimated GFR > 60 ml/min 04/05/17 10:33 BUN/Creatinine Ratio 15.00 % 04/05/17 10:33 Glucose 103 mg/dL (75-100) H 04/05/17 10:33 Calcium 10.0 mg/dL (8.4-10.2) 04/05/17 10:33 Troponin T < 0.010 ng/mL (0.00-0.029) 04/05/17 10:33 Triglycerides 143 mg/dL (2-149) 04/06/17 08:01 Cholesterol 170 mg/dL (50-199) 04/06/17 08:01 LDL Cholesterol Direct 98 mg/dL (50-130) 04/06/17 08:01 HDL Cholesterol 44 mg/dL (40-59) 04/06/17 08:01 Cholesterol/HDL Ratio 3.86 % 04/06/17 08:01
[2017-04-07] MEDS ORDERED: XANAX PO ONE (21:00)
[2017-04-07] MEDS: ZOCOR PO SCH (21:15)
[2017-04-07] MEDS: RESTORIL PO SCH (21:15)
[2017-04-08] MEDS: PAXIL PO SCH (09:44)
[2017-04-08] MEDS: HABITROL TD SCH (09:44)
[2017-04-08] MEDS ORDERED: PLAVIX PO SCH (10:00)
[2017-04-08] MEDS: XANAX PO PRN (10:56)
--- NOTE | 2017-04-08 12:58 | Discharge Summary ---
Providers - Providers Date of Admission: 04/05/17 15:29 Date of discharge: 04/08/17 Attending physician: DEX KNIGHT 04/07/17 08:01 Consult to Physician [CONS] Routine Consulting Provider: MELLISA MONTILLA Reason For Exam: acute CVA Place consult to:: Carmen Roberts Notified:: left message Phone number called:: [phone] 04/07/17 11:18 Consult Acute Rehabilitation [CONS] Routine Consulting Provider: TAMIR WILLINGHAM Reason For Exam: ACUTE REHAB Primary care physician: [employer] Hospitalization Condition: Stable Disposition: [id number] INPT REHAB FACILITY Core Measure Documentation - Palliative Care Palliative Care/ Comfort Measures: Not Applicable - Core Measures Any of the following diagnoses?: stroke - Stroke Discharge Requirements Statin for LDL = or >70 mg/dl on DC: Yes Anticoag for atrial fib/atrial flutter: Not Applicable (no afib/flutter) Antithrombotic for ischemic stroke: Yes Exam - Constitutional Vitals: Temp Pulse Resp BP Pulse Ox 98.2 F 54 L 76 H 166/88 98 04/08/17 12:36 04/08/17 12:36 04/08/17 12:36 04/08/17 12:36 04/08/17 12:36 General appearance: Present: no acute distress, well-nourished, other (thin built) - EENT Eyes: Present: PERRL, EOM intact - Neck Neck: Present: supple, normal ROM - Respiratory Respiratory effort: normal Respiratory: negative: rales, rhonchi, wheezing - Cardiovascular Rhythm: regular Heart Sounds: Present: S1 & S2 - Extremities Extremities: no ischemia, pulses intact, pulses symmetrical Peripheral Pulses: within normal limits - Abdominal General gastrointestinal: Present: soft, non-tender, non-distended, normal bowel sounds - Integumentary Integumentary: Present: clear, warm - Musculoskeletal Musculoskeletal: right sided weakness - Psychiatric Psychiatric: appropriate mood/affect, cooperative - Neurologic Neurologic: other (rt weakness) Plan Activity: advance as tolerated Diet: other (cardiac diet) Special Instructions: physical therapy, occupational therapy (rehab) Additional Instructions: transfer to acute rehab unit today Follow up with: ZE MARTINEZ MD [Primary Care Provider] - 3-5 Days DOREEN ARIZA MD [Staff Physician] - 7 Days Prescriptions: Clopidogrel [Plavix] 75 mg PO QDAY #30 tablet Nicotine [Habitrol] 21 mg TD QDAY #30 patch
[2017-04-08 16:50] VITALS: BP 195/91
--- NOTE | 2017-04-09 12:05 | Vascular Lab Report ---
CAROTID DUPLEX STUDY: RIGHT PSVEDV CCA PROX: 8313 CCA DIST: 9821 ICA PROX:[id number] ICA MID: 7016 ICA DIST: 8022 ECA: [id number] VERT: 71 17 LEFT PSVEDV CCA PROX:[id number] CCA DIST:[id number] ICA PROX: 7418 ICA MID: 7723 ICA DIST:7322 ECA: 32901 VERT: 61 15 REASON FOR EXAM: Stroke. COMMENTS ON THE RIGHT: Doppler frequency analysis is consistent with 16 to 49 percent diameter reduction of the internal carotid artery. Some plaque noted in the carotid bulb. The common carotid artery is patent. The external carotid artery is patent with significantly elevated flow velocity suggesting stenosis.. The vertebral artery has antegrade flow. COMMENTS ON THE LEFT: Doppler frequency analysis is consistent with 16 to 49 percent diameter reduction of the internal carotid artery. Minimal amount of plaque is seen. The common carotid artery is patent. The external carotid artery is patent. The vertebral artery has antegrade flow. IMPRESSION: Less than 50% diameter reduction in the internal carotid arteries bilaterally. Right external carotid artery stenosis. Clinical correlation recommended. Followup study with CT or MR should be considered
== END 2017-04-08 16:00 | DRG 65 ==
LOC: ED 09:19 → 4A 15:29
PROVIDERS: ADMIT Internal Medicine; ATTEND Internal Medicine
DX: I63.9 Cerebral infarction, unspecified (principal); G81.91 Hemiplegia, unspecified affecting right dominant side; F41.9 Anxiety disorder, unspecified; F17.200 Nicotine dependence, unspecified, uncomplicated; I10 Essential (primary) hypertension; R26.9 Unspecified abnormalities of gait and mobility; E78.5 Hyperlipidemia, unspecified; Z82.49 Family history of ischemic heart disease and other diseases of the circulatory system; Z71.6 Tobacco abuse counseling
CPT/HCPCS: 36415; 70450; 70544; 70551; 71010; 80048; 80061; 84484; 85025; 85610; 85670; 85730; 93005; 93010; 93306; 93880; 99406

== ENCOUNTER 2017-04-30 11:37 | Inpatient (IN) | payer BC ==
[2017-04-30 12:37] LABS: Basophils % (Auto) 1.1 % (0.0-1.8); Eosinophils % (Auto) 1.4 % (0.0-4.3); Hematocrit 38.9 % (35.5-45.6); Hemoglobin 13.2 gm/dl (11.8-15.2); Mean Corpuscular HGB Conc 34 % (32-34); Mean Corpuscular Hemoglobin 30 pg (28-32); Mean Corpuscular Volume 89 fl (84-94); Platelet Count 217 K/mm3 (140-440); Red Blood Count 4.37 M/mm3 (3.65-5.03); Red Cell Distribution Width 13.2 % (13.2-15.2); White Blood Count 6.7 K/mm3 (4.5-11.0)
[2017-04-30 12:54] LABS: Anion Gap 17 mmol/L; Blood Urea Nitrogen 9 mg/dL (9-20); Calcium 10.1 mg/dL (8.4-10.2); Carbon Dioxide 27 mmol/L (22-30); Chloride 98.8 mmol/L (98-107); Glucose 98 mg/dL (75-100); Potassium 4.5 mmol/L (3.6-5.0); Sodium 138 mmol/L (137-145)
[2017-04-30 13:21] LABS: Urine Drugs of Abuse Note Disclamer
[2017-04-30 13:28] LABS: Bilirubin,Urine NEG (Negative); Blood,Urine SM (Negative); Ketones,Urine NEG (Negative); Leukocyte Esterase,Urine NEG (Negative); Nitrite,Urine NEG (Negative); Protein,Urine <15 mg/dL mg/dL (Negative); Urobilinogen,Urine < 2.0 mg/dL (<2.0)
[2017-04-30] MEDS ORDERED: ATIVAN IM PRN (16:52)
[2017-04-30] MEDS ORDERED: NACL 0.9% 1000 ML 1,000 ML IV ONE (16:52)
--- NOTE | 2017-04-30 16:53 | Emergency Department Report ---
ED General Adult HPI - General Chief complaint: Psych Stated complaint: SUICIDAL Time Seen by Provider: 04/30/17 16:36 Source: patient, EMS (ems notes not available at time of chart dictation), RN notes reviewed, old records reviewed Mode of arrival: Stretcher Limitations: Physical Limitation - History of Present Illness Initial comments: This is a 62-year-old male. He is previously unknown to me. Patient has a past medical history of stroke at the left basal ganglia, with some residual right upper extremity and right lower extremity weakness, and some dysphagia. The patient is brought to the hospital today with suicidal plan to use a gun. Apparently the patient's ex- contacted 911. The patient admits to having gums, and the patient's ex- indicates that the guns are currently on lockdown. The patient has not tried to overdose on anything. He is suicidal, but is not experiencing hallucinations. His symptoms are constant since his stroke. The patient also describes chest pressure, burning and tightness, difficulty swallowing, total body aching, headache, and generalized malaise. The symptoms have been very since his stroke. His chest tightness started at 4:00 in the morning. It is constant, does not radiate to the back, arms or neck. He also describes bilateral extremity cramping. He also describes abdominal cramping and pain. There is no vomiting. No hematemesis. There is no bright red blood per rectum. He denies irritative and obstructive urinary symptoms. -: Gradual Location: head (the patient also complains of headache and throbbing), chest, abdomen Quality: aching Consistency: constant Improves with: none Worsens with: none Associated Symptoms: chest pain, headaches, loss of appetite, malaise, shortness of breath, weakness - Related Data Previous Rx's Medication Instructions Recorded Last Taken Type ALPRAZolam [Xanax TAB] 0.25 mg PO QID PRN #90 tablet 04/17/17 Unknown Rx Clopidogrel [Plavix] 75 mg PO QDAY #30 tablet 04/17/17 Unknown Rx Lisinopril [Zestril TAB] 20 mg PO QDAY #30 tablet 04/17/17 Unknown Rx Naphazoline/Phenira 0.025/0.3% 2 drops OS QDAY bottle 04/17/17 Unknown Rx [Visine-A] Nicotine [Habitrol] 21 mg TD QDAY #30 patch 04/17/17 Unknown Rx PARoxetine [Paxil] 10 mg PO DAILY #30 tablet 04/17/17 Unknown Rx Simvastatin [Zocor TAB] 20 mg PO QHS #30 tablet 04/17/17 Unknown Rx Temazepam 30 mg PO QHS #30 capsule 04/17/17 Unknown Rx amLODIPine [Norvasc] 5 mg PO QDAY #30 tablet 04/17/17 Unknown Rx Allergies Allergy/AdvReac Type Severity Reaction Status Date / Time No Known Allergies Allergy Verified 04/05/17 15:48 ED Review of Systems ROS: Stated complaint: SUICIDAL Other details as noted in HPI Constitutional: malaise, weakness Eyes: denies: vision change ENT: denies: epistaxis Respiratory: cough, shortness of breath Cardiovascular: chest pain Gastrointestinal: abdominal pain Genitourinary: as per HPI Musculoskeletal: as per HPI, arthralgia, myalgia Skin: as per HPI Neurological: weakness Psychiatric: anxiety, depression, suicidal thoughts. denies: homicidal thoughts ED Past Medical Hx - Past Medical History Hx Hypertension: Yes Hx CVA: Yes Hx Congestive Heart Failure: No Hx Diabetes: No Hx Psychiatric Treatment: (anxiety) Hx Asthma: No Hx COPD: No - Surgical History Hx Pacemaker: No - Social History Smoking Status: Former Smoker Substance Use Type: None - Medications Home Medications: Home Medications Medication Instructions Recorded Confirmed Last Taken Type ALPRAZolam [Xanax TAB] 0.25 mg PO QID PRN #90 tablet 04/17/17 04/30/17 Unknown Rx Clopidogrel [Plavix] 75 mg PO QDAY #30 tablet 04/17/17 04/30/17 Unknown Rx Lisinopril [Zestril TAB] 20 mg PO QDAY #30 tablet 04/17/17 04/30/17 Unknown Rx Naphazoline/Phenira 0.025/0.3% 2 drops OS QDAY bottle 04/17/17 04/30/17 Unknown Rx [Visine-A] Nicotine [Habitrol] 21 mg TD QDAY #30 patch 04/17/17 04/30/17 Unknown Rx PARoxetine [Paxil] 10 mg PO DAILY #30 tablet 04/17/17 04/30/17 Unknown Rx Simvastatin [Zocor TAB] 20 mg PO QHS #30 tablet 06/22/17 07/05/17 Unknown Rx Temazepam 30 mg PO QHS #30 capsule 04/17/17 04/30/17 Unknown Rx amLODIPine [Norvasc] 5 mg PO QDAY #30 tablet 04/17/17 04/30/17 Unknown Rx ED Physical Exam - General Limitations: Physical Limitation General appearance: alert, in no apparent distress - Head Head exam: Present: atraumatic, normocephalic - Eye Eye exam: Present: normal appearance, PERRL, EOMI. Absent: nystagmus - ENT ENT exam: Present: normal exam, normal orophraynx, mucous membranes moist, normal external ear exam - Neck Neck exam: Present: normal inspection, full ROM. Absent: tenderness, meningismus - Respiratory Respiratory exam: Present: normal lung sounds bilaterally. Absent: respiratory distress, wheezes, rales, rhonchi, stridor, chest wall tenderness, accessory muscle use, decreased breath sounds, prolonged expiratory - Cardiovascular Cardiovascular Exam: Present: regular rate, normal rhythm, normal heart sounds. Absent: bradycardia, tachycardia, irregular rhythm, systolic murmur, diastolic murmur, rubs, gallop - GI/Abdominal GI/Abdominal exam: Present: soft, tenderness, normal bowel sounds, other (there is left periumbilical and left upper quadrant tenderness. There is no rebound, guarding or peritoneal signs.). Absent: distended, guarding, rebound, rigid, pulsatile mass - Rectal Rectal exam: Present: deferred - Extremities Exam Extremities exam: Present: normal inspection, normal capillary refill. Absent: pedal edema, joint swelling, calf tenderness - Back Exam Back exam: Present: normal inspection, full ROM. Absent: tenderness, CVA tenderness (R), CVA tenderness (L), muscle spasm, paraspinal tenderness, vertebral tenderness - Neurological Exam Neurological exam: Present: alert (there is no facial droop. The tongue is midline. Extraocular movements are intact bilaterally. Tongue is midline. Sensation intact to light touch in the bilateral V1, V2, V3 distribution.), oriented X3, motor sensory deficit (decreased strength and sensation in the right upper and right lower extremity, which is chronic since the patient's stroke. There is 4.5/5 strength in the right lower extremity, there is 4/5 strength right upper extremity, sensation intact to light touch in 4 extremities , 5/5 strength left upper extremity, left lower extremity) - Psychiatric Psychiatric exam: Present: normal affect, normal mood - Skin Skin exam: Present: warm, dry, intact, normal color. Absent: rash ED Course Vital Signs 04/30/17 04/30/17 04/30/17 17:46 19:07 19:10 Temperature 98.5 F Pulse Rate 71 65 65 Respiratory 18 22 24 Rate Blood Pressure 134/73 134/73 Blood Pressure 124/79 [Right] O2 Sat by Pulse 99 98 98 Oximetry 04/30/17 04/30/17 04/30/17 19:20 19:30 19:41 Temperature Pulse Rate 65 66 66 Respiratory 19 21 22 Rate Blood Pressure 134/73 134/73 Blood Pressure [Right] O2 Sat by Pulse 98 97 98 Oximetry 04/30/17 04/30/17 04/30/17 19:50 20:00 20:11 Temperature Pulse Rate 67 64 66 Respiratory 28 H 25 H 17 Rate Blood Pressure 146/78 134/73 Blood Pressure [Right] O2 Sat by Pulse 98 98 Oximetry 04/30/17 04/30/17 04/30/17 20:43 20:51 21:02 Temperature Pulse Rate 67 65 Respiratory 20 25 H Rate Blood Pressure 134/73 134/73 134/73 Blood Pressure [Right] O2 Sat by Pulse 97 99 96 Oximetry 04/30/17 04/30/17 04/30/17 21:11 21:21 21:31 Temperature Pulse Rate 61 63 65 Respiratory 24 21 23 Rate Blood Pressure 134/73 134/73 134/73 Blood Pressure [Right] O2 Sat by Pulse 93 98 100 Oximetry 04/30/17 04/30/17 04/30/17 21:41 21:53 22:00 Temperature Pulse Rate 64 69 77 Respiratory 21 20 22 Rate Blood Pressure 146/78 146/78 140/76 Blood Pressure [Right] O2 Sat by Pulse 98 92 99 Oximetry 04/30/17 04/30/17 04/30/17 22:11 22:21 22:31 Temperature Pulse Rate 63 67 63 Respiratory 24 24 22 Rate Blood Pressure 140/76 140/76 140/76 Blood Pressure [Right] O2 Sat by Pulse 96 98 99 Oximetry 04/30/17 04/30/17 04/30/17 22:41 22:43 22:55 Temperature Pulse Rate 65 63 Respiratory 25 H 23 22 Rate Blood Pressure 140/76 140/76 140/76 Blood Pressure [Right] O2 Sat by Pulse 97 99 98 Oximetry 04/30/17 04/30/17 04/30/17 23:00 23:11 23:21 Temperature Pulse Rate 61 70 70 Respiratory 25 H 22 22 Rate Blood Pressure 139/72 139/72 139/72 Blood Pressure [Right] O2 Sat by Pulse 99 98 82 L Oximetry 04/30/17 04/30/17 04/30/17 23:31 23:41 23:50 Temperature Pulse Rate 69 64 57 L Respiratory 19 22 18 Rate Blood Pressure 139/72 139/72 139/72 Blood Pressure [Right] O2 Sat by Pulse 98 97 97 Oximetry 05/01/17 05/01/17 05/01/17 00:00 00:11 00:21 Temperature Pulse Rate 73 61 63 Respiratory 19 23 23 Rate Blood Pressure 132/85 139/72 139/72 Blood Pressure [Right] O2 Sat by Pulse 98 98 96 Oximetry 05/01/17 00:31 Temperature Pulse Rate 61 Respiratory 18 Rate Blood Pressure 139/72 Blood Pressure [Right] O2 Sat by Pulse 96 Oximetry - Reevaluation(s) Reevaluation #1: 04/30/17 18:00 differential diagnosis: Acute coronary syndrome, pneumonia, pulmonary embolus, diverticulitis, renal colic, urinary tract infection, perforated viscus, anxiety, conversion disorder, suicidality Assessment and plan: 62-year-old male with recent stroke, who initially complains of suicidality, but then describes chest discomfort nonspecific abdominal pain, musculoskeletal cramping, nonspecific headache, numerous somatic complaints. As per discussion with his ex-, Mrs Claudia Lee, , the patient typically perseverates on somatic complaints and side effects of medications, and she believes this is secondary to his anxiety. I given his numerous nonspecific complaints, this is most likely the case. Given his suicidality, he is placed on a 1013. He did complain of nonspecific chest tightness and shortness of breath, therefore an EKG was obtained, it is abnormal, but not morphologically consistent with a STEMI, no change from prior. A d-dimer is ordered given poor mobility, recent hospitalization. He is somewhat tender in the abdomen in the left hemiabdomen, therefore a noncontrast CT scan of the abdomen and pelvis is obtained. I also described nonspecific headache, his neurologic exam appears to be unchanged from prior, therefore noncontrast CT scan is obtained to exclude hemorrhagic transformation. Patient describes some dysphagia, this is chronic and has been documented from a prior admission, I don't believe he requires any emergent evaluation of this at this time. Patient had an unremarkable fluoroscopic swallow study earlier on in March. 04/30/17 18:03 Reevaluation #2: 04/30/17 22:47 Patient able to walk with minimal assistance. Noncontrast CT scan of the brain is negative. CT scan of the chest negative for pulmonary embolus, findings consistent with COPD are noted, CT scan of the abdomen and pelvis suggests lymphoma versus metastatic adenopathy. The Hospital physician has been paged to facilitate admission for chest pain, abnormal EKG, possible undifferentiated malignancy. Dr. Hoskins, the hospital physician accepts the patient to her service. 04/30/17 23:30 ED Medical Decision Making - Lab Data Result diagrams: 04/30/17 12:22 04/30/17 12:22 Vital Signs 04/30/17 17:46 Temperature 98.5 F Pulse Rate 71 Respiratory 18 Rate Blood Pressure 124/79 [Right] O2 Sat by Pulse 99 Oximetry Lab Results 04/30/17 04/30/17 04/30/17 Range/Units 12:17 12:17 12:22 WBC (4.5-11.0) K/mm3 RBC (3.65-5.03) M/mm3 Hgb (11.8-15.2) gm/dl Hct (35.5-45.6) % MCV (84-94) fl MCH (28-32) pg MCHC (32-34) % RDW (13.2-15.2) % Plt Count (140-440) K/mm3 Lymph % (Auto) (13.4-35.0) % [place] % (Auto) (0.0-7.3) % Eos % (Auto) (0.0-4.3) % Baso % (Auto) (0.0-1.8) % Lymph # (1.2-5.4) K/mm3 [place] # (0.0-0.8) K/mm3 Eos # (0.0-0.4) K/mm3 Baso # (0.0-0.1) K/mm3 Seg Neutrophils % (40.0-70.0) % Seg Neutrophils # (1.8-7.7) K/mm3 Sodium 138 (137-145) mmol/L Potassium 4.5 (3.6-5.0) mmol/L Chloride 98.8 (98-107) mmol/L Carbon Dioxide 27 (22-30) mmol/L Anion Gap 17 mmol/L BUN 9 (9-20) mg/dL Creatinine 1.0 (0.8-1.5) mg/dL Estimated GFR > 60 ml/min BUN/Creatinine Ratio 9.00 % Glucose 98 (75-100) mg/dL Calcium 10.1 (8.4-10.2) mg/dL Urine Color Straw (Yellow) Urine Turbidity Clear (Clear) Urine pH 8.0 H (5.0-7.0) Ur Specific Clark 1.004 (1.003-1.030) Urine Protein <15 mg/dl (Negative) mg/dL Urine Glucose (UA) Neg (Negative) mg/dL Urine Ketones Neg (Negative) mg/dL Urine Blood Sm (Negative) Urine Nitrite Neg (Negative) Urine Bilirubin Neg (Negative) Urine Urobilinogen < 2.0 (<2.0) mg/dL Ur Leukocyte Esterase Neg (Negative) Urine WBC (Auto) 1.0 (0.0-6.0) /HPF Urine RBC (Auto) 2.0 (0.0-6.0) /HPF Urine Opiates Screen Presumptive negative Urine Methadone Screen Presumptive negative Ur Barbiturates Screen Presumptive negative Ur Phencyclidine Scrn Presumptive negative Ur Amphetamines Screen Presumptive negative U Benzodiazepines Scrn Presumptive negative Urine Cocaine Screen Presumptive negative U Marijuana (THC) Screen Presumptive negative Drugs of Abuse Note Disclamer Plasma/Serum Alcohol (0-0.07) gm% 04/30/17 04/30/17 Range/Units 12:22 12:22 WBC 6.7 (4.5-11.0) K/mm3 RBC 4.37 (3.65-5.03) M/mm3 Hgb 13.2 (11.8-15.2) gm/dl Hct 38.9 (35.5-45.6) % MCV 89 (84-94) fl MCH 30 (28-32) pg MCHC 34 (32-34) % RDW 13.2 (13.2-15.2) % Plt Count 217 (140-440) K/mm3 Lymph % (Auto) 13.0 L (13.4-35.0) % [place] % (Auto) 6.8 (0.0-7.3) % Eos % (Auto) 1.4 (0.0-4.3) % Baso % (Auto) 1.1 (0.0-1.8) % Lymph # 0.9 L (1.2-5.4) K/mm3 [place] # 0.5 (0.0-0.8) K/mm3 Eos # 0.1 (0.0-0.4) K/mm3 Baso # 0.1 (0.0-0.1) K/mm3 Seg Neutrophils % 77.7 H (40.0-70.0) % Seg Neutrophils # 5.2 (1.8-7.7) K/mm3 Sodium (137-145) mmol/L Potassium (3.6-5.0) mmol/L Chloride (98-107) mmol/L Carbon Dioxide (22-30) mmol/L Anion Gap mmol/L BUN (9-20) mg/dL Creatinine (0.8-1.5) mg/dL Estimated GFR ml/min BUN/Creatinine Ratio % Glucose (75-100) mg/dL Calcium (8.4-10.2) mg/dL Urine Color (Yellow) Urine Turbidity (Clear) Urine pH (5.0-7.0) Ur Specific Clark (1.003-1.030) Urine Protein (Negative) mg/dL Urine Glucose (UA) (Negative) mg/dL Urine Ketones (Negative) mg/dL Urine Blood (Negative) Urine Nitrite (Negative) Urine Bilirubin (Negative) Urine Urobilinogen (<2.0) mg/dL Ur Leukocyte Esterase (Negative) Urine WBC (Auto) (0.0-6.0) /HPF Urine RBC (Auto) (0.0-6.0) /HPF Urine Opiates Screen Urine Methadone Screen Ur Barbiturates Screen Ur Phencyclidine Scrn Ur Amphetamines Screen U Benzodiazepines Scrn Urine Cocaine Screen U Marijuana (THC) Screen Drugs of Abuse Note Plasma/Serum Alcohol < 0.01 (0-0.07) gm% - EKG Data -: EKG Interpreted by Me - EKG Data 04/30/17 18:04 normal sinus, 66 bpm, normal intervals, normal axis, incomplete right bundle branch block, T-wave inversions in V3, V4, V5 and V6, T-wave inversion in lead 2, abnormal EKG, not consistent with STEMI, when compared to prior EKG, T-wave inversions in V3 appeared to be new. Critical care attestation.: If time is entered above; I have spent that time in minutes in the direct care of this critically ill patient, excluding procedure time. ED Disposition Clinical Impression: Acute electrocardiogram changes, Suicidal ideation Abdominal pain Qualifiers: Abdominal location: unspecified location Qualified Code(s): R10.9 - Unspecified abdominal pain Disposition: OP ADMIT IP TO THIS HOSP Is pt being admited?: Yes Does the pt Need Aspirin: Yes Condition: Stable Referrals: PRIMARY CARE,MD [Primary Care Provider] - 3-5 Days
[2017-04-30 18:10] LABS: INR 1.12 (0.87-1.13)
--- NOTE | 2017-04-30 18:17 | Cat Scan Report ---
FINAL REPORT EXAM: CT HEAD/BRAIN WO CON HISTORY: headache hx of cva TECHNIQUE: Noncontrast CT axial images of the brain. PRIORS: None. FINDINGS: No parenchymal mass, mass effect, hemorrhage, midline shift or hydrocephalus. No evidence of acute cortical infarct. No abnormal, extra-axial fluid or air collection. Mild, patchy low density in the periventricular and subcortical white matter is nonspecific, but may relate to chronic small vessel ischemic change. Probable old lacunar infarct changes in the bilateral basal ganglia. Age-related volume loss. Osseous calvarium grossly intact. Mucosal thickening in the ethmoid sinuses. IMPRESSION: 1. No acute intracranial findings. 2. Chronic ischemic and atrophic changes.
--- NOTE | 2017-04-30 18:41 | Cat Scan Report ---
FINAL REPORT PROCEDURE: CT ABDOMEN PELVIS WO CON TECHNIQUE: Computerized axial tomography of the abdomen and pelvis was performed without intravenous contrast. This study is performed without intravascular contrast material and its sensitivity for abdominal and pelvic pathology, including neoplasms, inflammation, abscess, free fluid, thrombosis, arterial dissection and infarction, is reduced compared with a contrast enhanced study. HISTORY: abd pain COMPARISON: No prior studies are available for comparison. FINDINGS: Mild hypoventilatory changes are seen at the lung bases. The liver and spleen appear normal. Mild cholelithiasis is seen without suggestion of cholecystitis or biliary ductal dilation. Pancreas appears normal. Adrenal glands are normal in size. Proximal abdominal aorta is mildly prominent measuring 2.4 cm in diameter. It tapers to normal diameter distally. Probable benign cyst is seen in the lower pole of the right kidney measuring 2.8 cm in diameter. Another likely cyst is seen in the lower pole of the left kidney measuring 1.3 cm. In the mid left kidney anteriorly there is a possible cyst measuring 1.3 cm. Normal appendix is seen. Bladder appears normal. Prostate gland measures 4.9 x 3.6 x 4.7 cm. No free pelvic fluid is seen. Mild increased small and large bowel air within nondilated loops is probably from swallowed air. No suggestion of bowel obstruction is seen. Reactive lymph nodes are seen in the small bowel mesentery. In the right side of the upper pelvis, image 88 of the axial series, there is a rounded soft tissue density that does not appear to be bowel. A peritoneal mass is not excluded given the appearance. Further evaluation with contrast-enhanced CT of the abdomen and pelvis using IV and oral contrast is recommended. IMPRESSION: There is suspicion for a 3.2 x 2.9 cm soft tissue mass in the right side of the upper pelvis. Less likely this is unopacified bowel. Further evaluation with contrast-enhanced CT exam is recommended. Prostate gland is mildly prominent. Cholelithiasis is seen without suggestion of cholecystitis. Probable cysts are seen in the kidneys and could be confirmed with contrast-enhanced CT.
[2017-04-30] MEDS ORDERED: NACL ONE (19:18)
--- NOTE | 2017-04-30 21:41 | Cat Scan Report ---
FINAL REPORT PROCEDURE: CT ABDOMEN PELVIS W CON TECHNIQUE: Computerized axial tomography of the abdomen and pelvis was performed after the IV injection of iodinated nonionic contrast. HISTORY: rlq pain, possible mass seen in peritoneum on unenhanced CT study. COMPARISON: Unenhanced CT exam dated the same day FINDINGS: Mild hypoventilatory changes are seen in the lower lungs. The liver and spleen appear normal. Normal variant diminished enhancement is seen in the bare area of the liver. Mild cholelithiasis is not as well seen on this study is present. The pancreas appears normal. The adrenal glands and abdominal aorta are normal in size. Benign cysts are seen in the kidneys as suggested on unenhanced study. Mild retroperitoneal lymphadenopathy is seen. 1.4 x 1.0 cm lymph node is seen to the left of the abdominal aorta on image 168 of the axial series. Other smaller lymph nodes are seen in the analilia hepatitis and retroperitoneum. In the right lower abdomen near the level of the pelvic inlet there is a probable erika mass measuring 2.2 x 3.5 cm. Mildly prominent mesenteric lymph nodes are seen. No evidence of small bowel obstruction is seen. No small bowel or colonic wall thickening is seen. Moderate gaseous dilation of the rectum is seen and there is likely moderate constipation in the ascending and transverse colon. Normal appendix is seen. A few tiny external iliac lymph nodes are seen without suspicious appearing pelvic lymphadenopathy. IMPRESSION: 2.2 x 3.5 cm mass in the right lower abdomen is most likely of erika origin. There are other mildly enlarged lymph nodes in the analilia hepatitis, mesentery and retroperitoneum. The largest retroperitoneal lymph node, located to the left of the aorta, measures 1.4 x 1.0 cm. Lymphoma would be the most likely etiology for the findings but metastatic lymphadenopathy is not completely excluded.
--- NOTE | 2017-04-30 21:46 | Cat Scan Report ---
FINAL REPORT PROCEDURE: CT ANGIO CHEST TECHNIQUE: Computerized tomographic angiography of the chest was performed after the IV injection of iodinated nonionic contrast including image processing. The image data was postprocessed using 2-dimensional multiplanar reformatted (MPR) and 3-dimensional (MIP and/or volume rendered) techniques. HISTORY: cp sob COMPARISON: No prior studies are available for comparison. FINDINGS: Mild changes of COPD are seen. Mild hypoventilatory changes are seen in the dependent portions of the lungs. No pneumothorax or pleural effusion is seen. The heart is normal in size. No suspicious lymphadenopathy is seen in the chest. Thoracic aorta is normal in size without evidence of dissection. No pulmonary embolus is seen. IMPRESSION: No pulmonary embolus is seen.
[2017-04-30] MEDS ORDERED: BABY ASPIRIN PO ONE (22:48)
--- NOTE | 2017-04-30 23:56 | History and Physical Report ---
History of Present Illness Date of examination: 04/30/17 History of present illness: 62-year-old man with a history of hypertension, anxiety, CVA with right-sided weakness, hyperlipidemia [facility] because he made a statement expressing his frustration dealing with right-sided weakness, the daughter thought that he was suicidal and call 911. In the emergency room E complaining of vague abdominal pain which he stated now is resolved. He also complaining of chest pain located in the left chest which she describes as sharp pain, lasting for 5 minutes, intensity 4/10, no radiation, he cannot identify exacerbating or relieving factors. He stated he had not had his anxiety medicine today any feel like that was anxiety attack. States he is not suicidal Patient denies cough, abdominal pain, hematochezia, dysuria, frequency, focal weakness, dysarthria, fever chills, polydipsia polyuria, hot or cold intolerance , easy bruisability, or rash or bleeding from mucosal membrane, rhinorrhea, epistaxis, earache, tinnitus, blurry vision, eye discharge, anxiety, depression. Other review of systems negative PAST SURGICAL HISTORY: None SOCIAL HISTORY: Quit tobacco, no alcohol, drugs FAMILY HISTORY: Hypertension Medications and Allergies Allergies Allergy/AdvReac Type Severity Reaction Status Date / Time No Known Allergies Allergy Verified 04/05/17 15:48 Home Medications Medication Instructions Recorded Confirmed Last Taken Type ALPRAZolam [Xanax TAB] 0.25 mg PO QID PRN #90 tablet 04/17/17 04/30/17 Unknown Rx Clopidogrel [Plavix] 75 mg PO QDAY #30 tablet 04/17/17 04/30/17 Unknown Rx Lisinopril [Zestril TAB] 20 mg PO QDAY #30 tablet 04/17/17 04/30/17 Unknown Rx Naphazoline/Phenira 0.025/0.3% 2 drops OS QDAY bottle 04/17/17 04/30/17 Unknown Rx [Visine-A] Nicotine [Habitrol] 21 mg TD QDAY #30 patch 04/17/17 04/30/17 Unknown Rx PARoxetine [Paxil] 10 mg PO DAILY #30 tablet 04/17/17 04/30/17 Unknown Rx Simvastatin [Zocor TAB] 20 mg PO QHS #30 tablet 04/17/17 04/30/17 Unknown Rx Temazepam 30 mg PO QHS #30 capsule 04/17/17 04/30/17 Unknown Rx amLODIPine [Norvasc] 5 mg PO QDAY #30 tablet 04/17/17 04/30/17 Unknown Rx Active Meds: Active Medications Lorazepam (Ativan) 2 mg IM Q4HR PRN PRN Reason: Agitation Exam - Physical Exam Narrative exam: Gen. appearance: Patient lying in bed, no apparent distress HEENT: Normocephalic, atraumatic, pupils equally round and reactive to light, extraocular movement intact, and no sclericterus,. No JVD or thyromegaly or nodule,neck supple, no carotid bruit ,mucous membranes moist, no exudate or erythema Heart: S1, S2, regular rate and rhythm Lungs: Clear to auscultation bilaterally, breathing comfortable Abdomen: Positive bowel sounds, nontender, nondistended, no organomegaly Extremity: No edema, cyanosis, clubbing Skin: No rash, nodules, warm, dry Neuro: Oriented 3, cranial nerves II-12 intact, speech is fluent, right-sided weakness - Constitutional Vitals: Temp Pulse Resp BP Pulse Ox 98.5 F 65 25 H 140/76 97 04/30/17 17:46 04/30/17 22:41 04/30/17 22:41 04/30/17 22:41 04/30/17 22:41 Results - Labs CBC & Chem 7: 04/30/17 12:22 04/30/17 12:22 Labs: Abnormal lab results 04/30/17 04/30/17 04/30/17 Range/Units 12:17 12:22 16:51 Lymph % (Auto) 13.0 L (13.4-35.0) % Lymph # 0.9 L (1.2-5.4) K/mm3 Seg Neutrophils % 77.7 H (40.0-70.0) % D-Dimer (0-234) ng/mlDDU Total Creatine Kinase 46 L (55-170) units/L Urine pH 8.0 H (5.0-7.0) Salicylates (2.8-20.0) mg/dL 04/30/17 04/30/17 Range/Units 16:51 17:36 Lymph % (Auto) (13.4-35.0) % Lymph # (1.2-5.4) K/mm3 Seg Neutrophils % (40.0-70.0) % D-Dimer 253.22 H (0-234) ng/mlDDU Total Creatine Kinase (55-170) units/L Urine pH (5.0-7.0) Salicylates < 0.3 L (2.8-20.0) mg/dL - Imaging and Cardiology EKG: image reviewed Chest x-ray: image reviewed CT scan - abdomen: report reviewed CT scan - chest: report reviewed CT Scan - head: report reviewed CT scan - pelvis: report reviewed Assessment and Plan Suicide ideation Diffuse lymphadenopathy Chest pain, rule out ACS Hypertension History of CVA Admits medicine Place on 1013, consult psych Consult oncology, check cardiac enzymes, stress test Continue appropriate outpatient medications, start DVT prophylaxis
[2017-05-01] MEDS ORDERED: DULCOLAX PR PRN (04:48)
[2017-05-01] MEDS ORDERED: MILK OF MAGNESIA PO PRN (04:48)
[2017-05-01] MEDS ORDERED: ZOFRAN IV PRN (04:48)
--- NOTE | 2017-05-01 07:09 | XRay Report ---
Single view of chest: Compared to 04/05/17. History: Dyspnea. Chest pain. Findings: Normal cardiomediastinal silhouette. Trachea is midline. No consolidation, pneumothorax or pleural effusion. Impression: No acute cardiopulmonary findings.
[2017-05-01 07:49] LABS: Creatine Kinase MB 2.8 ng/mL (0.0-4.0)
[2017-05-01 07:52] LABS: Creatine Kinase 74 units/L (55-170)
[2017-05-01 09:10] LABS: Creatine Kinase MB 2.9 ng/mL (0.0-4.0)
[2017-05-01 09:13] LABS: Creatine Kinase 75 units/L (55-170)
--- NOTE | 2017-05-01 09:15 | Admit Criteria Form ---
Admission Criteria Documentation: CHEST PAIN Clinical Indications for Admission to Inpatient Care (Place 'X' for any and all applicable criteria): Admission is indicated for chest pain and ANY ONE of the following(1)(2)(3)(4)(5 ): [X]I. Angina with acute coronary syndrome (Also use Myocardial Infarction or Angina guideline) [ ]II. Hemodynamic instability [ ]III. Angina needing acute intervention as indicated by ALL of the following( 11)(12): [ ]a) Unstable angina is present as indicated by angina that is ANY ONE of the following: [ ]i) New onset [ ]ii) Nocturnal [ ]iii) Prolonged at rest [ ]iv) Progressive [ ]b) Angina warrants acute intervention as indicated by ANY ONE of the following: [ ]i) Recurrent angina (e.g, not responding as previously to treatment) [ ]ii) Angina at rest or with low-level activities despite initial medical therapy [ ]iii) New or presumably new ST-segment depression on ECG [ ]iv) Signs or symptoms of heart failure (eg, dyspnea, pulmonary edema) [ ]v) New or worsening mitral regurgitation [ ]vi) Hemodynamic instability [ ]vii) Dangerous arrhythmia (eg, sustained ventricular tachycardia) [ ]viii) History of percutaneous coronary intervention within 6 months [ ]ix) History of coronary artery bypass graft surgery [ ]x) MAO risk score of 2 or greater[A] [ ]xi) History of Diabetes(14) [ ]xii) High-risk cardiac ischemia findings on noninvasive testing (e.g, echocardiogram, treadmill testing, nuclear scan) [ ]xiii) Chronic renal insufficiency (ie, estimated GFR less than 60 mL/min/1.732m) [ ]xiv) Left ventricular ejection fraction less than 40% [ ]IV. Evidence of WA (eg, cardiac biomarkers positive, ST-segment elevation on ECG) also use Myocardial Infarction Criteria Form. [ ]V. Pulmonary edema [ ]. Respiratory distress [ ]VII. Chest pain indicative of serious diagnosis other than coronary artery disease (eg, aortic dissection) [ ]VIII. Contraindications and/or Inappropriate clinical situations for Observational Care in patients with Chest Pain, when ANY ONE of the following is required: [ ]a) Patient with risk factor for pulmonary embolism, acute coronary syndrome and myocardial infarction (18) [ ]b) Patient with Pulmonary embolism require an average LOS of 4.3 days, therefore emergency department observation management is inappropriate 18,23 [ ]c) Painful condition/s in the elderly, have the highest rate of recidivism after emergency department observation management (10.8%) 20,21,22 [ ]d) Elevated cardiac biomarker requires intensive and exhaustive care (19) [ ]IX. General contraindications and/or Inappropriate clinical situations for Observational Care in patients with Chest Pain, when ANY ONE of the following is required: [ ]a) Prediction of prolongation of LOS based on ANY ONE of the following may be considered as a contraindication for observational care 2, 3, 4, 5, 6, 7, 8, 9, 10, 11 [ ]i) Age > 65 yrs. [ ]ii) Patient arriving by ambulance [ ]iii) Patient with high acuity [ ]iv) Patient requiring vital sign monitoring [ ]v) Patient on IV medication [ ]b) Systolic blood pressures 180mmHg 3,12 [ ]c) Patient with altered mental status including delirium and other alteration of consciousness, (3) [ ]d) Patient whose discharge disposition will be to a usp home or rehabilitation home should not be managed in Emergency Department Observation Unit. CMS rule requires 3 days hospital stay before such placement. 3,13 [ ]e) Patient with failure to thrive due to broad array of etiologies 3,16,17 [ ]f) Inability to ambulate 3,14 Extended stay beyond goal length of stay may be needed for (1)(28): [ ]a) Specific condition diagnosed after evaluation (eg, pulmonary embolism, aortic dissection) [ ]b) Unstable angina [ ]c) Continued suspicion of acute coronary syndrome with inability to complete needed cardiac evaluation (eg, patient clinically unable to undergo stress testing) [ ]d) Myocardial infarction (Contents from ANGINA and CHEST PAIN clinical indications for admission to inpatient care have been integrated in this form) The original [facility] content created by [employer] has been revised. The portions of the content which have been revised are identified through the use of italic text or in bold, and [facility] [employer] has neither reviewed nor approved the modified material. All other unmodified content is copyright [facility]. Please see references footnoted in the original [facility] edition 2016 Admission Criteria Met: Yes
--- NOTE | 2017-05-01 09:29 | Progress Note ---
Assessment and Plan - Patient Problems (1) Lymphoma Current Visit: Yes Status: Acute Qualifiers: Lymphoma type: unspecified type Hodgkin lymphoma type: H Non-Hodgkin lymphoma type: N Follicular lymphoma type: F Follicular lymphoma grade: F Non-follicular lymphoma type: N Mature NK/T-cell lymphoma type: M B-cell lymphoma type: B Other specified types of NK/T-cell lymphoma: O Lymphoma site: intra-abdominal nodes Qualified Code(s): C85.93 - Non-Hodgkin lymphoma, unspecified, intra-abdominal lymph nodes Plan to address problem: CT Guided biopsy for tissue diagnosis or follow up as outpatient with DR GALVEZ. (2) Acute coronary syndrome Current Visit: Yes Status: Acute Plan to address problem: Stress test negative. (3) Suicidal ideation Current Visit: Yes Status: Acute Plan to address problem: Patient denies.Will defer to MH (4) CVA (cerebral vascular accident) Current Visit: No Status: Chronic Qualifiers: CVA mechanism: unspecified Precerebral and cerebral artery: P Laterality of affected vessel: L Qualified Code(s): I63.9 - Cerebral infarction, unspecified Plan to address problem: Supportive care (5) HTN (hypertension) Current Visit: No Status: Chronic Qualifiers: Hypertension type: essential hypertension Qualified Code(s): I10 - Essential (primary) hypertension Plan to address problem: Cont antihypertensives (6) DVT prophylaxis Current Visit: No Status: Acute History Interval history: Doing well.Says he is not suicidal.No chest pain Hospitalist Physical - Constitutional Vitals: Temp Pulse Resp BP Pulse Ox 98.0 F 60 18 155/78 96 05/01/17 04:45 05/01/17 04:45 05/01/17 04:45 05/01/17 04:45 05/01/17 04:45 General appearance: Present: no acute distress - EENT Eyes: Present: PERRL, EOM intact ENT: hearing intact, clear oral mucosa - Neck Neck: Present: supple, normal ROM - Respiratory Respiratory effort: normal Respiratory: bilateral: CTA - Cardiovascular Heart rate: 70 Rhythm: regular - Extremities Extremities: no ischemia, pulses intact, pulses symmetrical Peripheral Pulses: within normal limits - Abdominal General gastrointestinal: soft, non-tender, normal bowel sounds - Psychiatric Psychiatric: appropriate mood/affect, intact judgment & insight - Neurologic Neurologic: CNII-XII intact, focal deficits - Allied Health Allied health notes reviewed: nursing, social work, case management Results - Labs CBC & Chem 7: 05/02/17 06:07 05/02/17 06:07 Labs: Laboratory Last Values WBC 6.7 K/mm3 (4.5-11.0) 04/30/17 12:22 RBC 4.37 M/mm3 (3.65-5.03) 04/30/17 12:22 Hgb 13.2 gm/dl (11.8-15.2) 04/30/17 12:22 Hct 38.9 % (35.5-45.6) 04/30/17 12:22 MCV 89 fl (84-94) 04/30/17 12:22 MCH 30 pg (28-32) 04/30/17 12:22 MCHC 34 % (32-34) 04/30/17 12:22 RDW 13.2 % (13.2-15.2) 04/30/17 12:22 Plt Count 217 K/mm3 (140-440) 04/30/17 12:22 Lymph % (Auto) 13.0 % (13.4-35.0) L 04/30/17 12:22 [place] % (Auto) 6.8 % (0.0-7.3) 04/30/17 12:22 Eos % (Auto) 1.4 % (0.0-4.3) 04/30/17 12:22 Baso % (Auto) 1.1 % (0.0-1.8) 04/30/17 12:22 Lymph # 0.9 K/mm3 (1.2-5.4) L 04/30/17 12:22 [place] # 0.5 K/mm3 (0.0-0.8) 04/30/17 12:22 Eos # 0.1 K/mm3 (0.0-0.4) 04/30/17 12:22 Baso # 0.1 K/mm3 (0.0-0.1) 04/30/17 12:22 Seg Neutrophils % 77.7 % (40.0-70.0) H 04/30/17 12:22 Seg Neutrophils # 5.2 K/mm3 (1.8-7.7) 04/30/17 12:22 PT 14.3 Sec. (12.2-14.9) 04/30/17 17:36 INR 1.12 (0.87-1.13) 04/30/17 17:36 D-Dimer 253.22 ng/mlDDU (0-234) H 04/30/17 17:36 Sodium 138 mmol/L (137-145) 04/30/17 12:22 Potassium 4.5 mmol/L (3.6-5.0) 04/30/17 12:22 Chloride 98.8 mmol/L (98-107) 04/30/17 12:22 Carbon Dioxide 27 mmol/L (22-30) 04/30/17 12:22 Anion Gap 17 mmol/L 04/30/17 12:22 BUN 9 mg/dL (9-20) 04/30/17 12:22 Creatinine 1.0 mg/dL (0.8-1.5) 04/30/17 12:22 Estimated GFR > 60 ml/min 04/30/17 12:22 BUN/Creatinine Ratio 9.00 % 04/30/17 12:22 Glucose 98 mg/dL (75-100) 04/30/17 12:22 Calcium 10.1 mg/dL (8.4-10.2) 04/30/17 12:22 Total Creatine Kinase 75 units/L (55-170) 05/01/17 08:24 CK-MB (CK-2) 2.9 ng/mL (0.0-4.0) 05/01/17 08:24 CK-MB (CK-2) Rel Index 3.8 (0-4) 05/01/17 08:24 Troponin T < 0.010 ng/mL (0.00-0.029) 05/01/17 08:24 Lipase 22 units/L (13-60) 04/30/17 17:36 Urine Color Straw (Yellow) 04/30/17 12:17 Urine Turbidity Clear (Clear) 04/30/17 12:17 Urine pH 8.0 (5.0-7.0) H 04/30/17 12:17 Ur Specific [place] 1.004 (1.003-1.030) 04/30/17 12:17 Urine Protein <15 mg/dl mg/dL (Negative) 04/30/17 12:17 Urine Glucose (UA) Neg mg/dL (Negative) 04/30/17 12:17 Urine Ketones Neg mg/dL (Negative) 04/30/17 12:17 Urine Blood Sm (Negative) 04/30/17 12:17 Urine Nitrite Neg (Negative) 04/30/17 12:17 Urine Bilirubin Neg (Negative) 04/30/17 12:17 Urine Urobilinogen < 2.0 mg/dL (<2.0) 04/30/17 12:17 Ur Leukocyte Esterase Neg (Negative) 04/30/17 12:17 Urine WBC (Auto) 1.0 /HPF (0.0-6.0) 04/30/17 12:17 Urine RBC (Auto) 2.0 /HPF (0.0-6.0) 04/30/17 12:17 Salicylates < 0.3 mg/dL (2.8-20.0) L 04/30/17 16:51 Urine Opiates Screen Presumptive negative 04/30/17 12:17 Urine Methadone Screen Presumptive negative 04/30/17 12:17 Acetaminophen < 15.0 ug/mL (10.0-30.0) 04/30/17 16:51 Ur Barbiturates Screen Presumptive negative 04/30/17 12:17 Ur Phencyclidine Scrn Presumptive negative 04/30/17 12:17 Ur Amphetamines Screen Presumptive negative 04/30/17 12:17 U Benzodiazepines Scrn Presumptive negative 04/30/17 12:17 Urine Cocaine Screen Presumptive negative 04/30/17 12:17 U Marijuana (THC) Screen Presumptive negative 04/30/17 12:17 Drugs of Abuse Note Disclamer 04/30/17 12:17 Plasma/Serum Alcohol < 0.01 gm% (0-0.07) 04/30/17 12:22 - Imaging and Cardiology CT scan - abdomen: report reviewed (2.2x 3.5 RL abdomen most likely erika in origin.Enlarged LN in analilia hepatis mesentery and Retroperitoneum.Large RP LN located to l of aorta 1.4x1.0 cmDDX Lymphoma versus metastatic Lymphadenopathy)
[2017-05-01] MEDS ORDERED: LEXISCAN IV ONE ×2 (09:37→09:39)
[2017-05-01] MEDS: HABITROL TD SCH (11:51)
[2017-05-01] MEDS: ZESTRIL PO SCH (11:52)
[2017-05-01] MEDS: NORVASC PO SCH (11:52)
[2017-05-01] MEDS: PLAVIX PO SCH (11:52)
[2017-05-01] MEDS: PAXIL PO SCH (11:52)
[2017-05-01] MEDS: LOVENOX SUB-Q SCH (11:52)
[2017-05-01] MEDS: XANAX PO PRN (12:00)
[2017-05-01] MEDS: TYLENOL PO PRN (18:40)
[2017-05-01] MEDS: CLARITIN PO PRN (21:45)
[2017-05-01] MEDS: RESTORIL PO SCH (21:45)
[2017-05-01] MEDS: ZOCOR PO SCH (21:47)
[2017-05-02 06:48] LABS: Basophils % (Auto) 2.2 % (0.0-1.8); Eosinophils % (Auto) 5.5 % (0.0-4.3); Hemoglobin 12.9 gm/dl (11.8-15.2); Mean Corpuscular HGB Conc 34 % (32-34); Mean Corpuscular Hemoglobin 30 pg (28-32); Mean Corpuscular Volume 88 fl (84-94); Platelet Count 206 K/mm3 (140-440); Red Blood Count 4.31 M/mm3 (3.65-5.03); Red Cell Distribution Width 13.4 % (13.2-15.2); White Blood Count 4.2 K/mm3 (4.5-11.0)
[2017-05-02] MEDS: TYLENOL PO PRN (06:50)
[2017-05-02] MEDS: CLARITIN PO PRN (06:51)
[2017-05-02 07:04] LABS: Anion Gap 15 mmol/L; Blood Urea Nitrogen 8 mg/dL (9-20); Calcium 9.9 mg/dL (8.4-10.2); Carbon Dioxide 25 mmol/L (22-30); Chloride 97.5 mmol/L (98-107); Glucose 99 mg/dL (75-100); Potassium 4.2 mmol/L (3.6-5.0); Sodium 133 mmol/L (137-145)
[2017-05-02] MEDS: PAXIL PO SCH (09:46)
[2017-05-02] MEDS: PLAVIX PO SCH (09:46)
[2017-05-02] MEDS: ZESTRIL PO SCH (09:46)
[2017-05-02] MEDS: LOVENOX SUB-Q SCH (09:46)
[2017-05-02] MEDS: XANAX PO PRN ×3 (09:46→22:23)
[2017-05-02] MEDS: NORVASC PO SCH (09:46)
[2017-05-02] MEDS: HABITROL TD SCH (09:46)
--- NOTE | 2017-05-02 10:18 | Progress Note ---
Assessment and Plan Assessment and plan: --Chest pain/acute coronary syndrome Status post stress test, negative for reversible ischemia, patient's symptoms resolved --Suicidal ideation; Patient denies any suicidal thoughts or ideation, continue 1013 status Psych evaluation for disposition and treatment recommendations --History of CVA; with residual weakness Continue supportive care --Abdominal lymphadenitis/possible lymphoma CT-guided biopsy and follow-up with hematology oncologist for further evaluation and management Patient refused CT-guided biopsy of the lymph node, may follow with director market research as outpatient --Hypertension; moderate control Continue current antihypertensives and when necessary medications --DVT prophylaxis with Lovenox Will closely monitor the patient and adjust management as needed Patient's condition treatment plan discussed in detail with the patient his nurse as well as a case management History Interval history: Patient seen and evaluated this morning in his room medical records reviewed director of it operations at the bedside, patient feels better, denies depression or suicidal thoughts or ideation Scheduled for CT-guided lymph node biopsy today Alert awake responding appropriately not in acute distress Hospitalist Physical - Constitutional Vitals: Temp Pulse Resp BP Pulse Ox 98.6 F 74 18 141/67 100 05/02/17 07:55 05/02/17 07:55 05/02/17 07:55 05/02/17 07:55 05/02/17 07:55 General appearance: Present: no acute distress, well-nourished - EENT Eyes: Present: PERRL, EOM intact - Neck Neck: Present: supple, normal ROM - Respiratory Respiratory effort: normal Respiratory: bilateral: diminished, negative: rales, rhonchi, wheezing - Cardiovascular Rhythm: regular Heart Sounds: Present: S1 & S2 - Extremities Extremities: no ischemia, pulses intact, pulses symmetrical Peripheral Pulses: within normal limits - Abdominal General gastrointestinal: soft, non-tender, non-distended, normal bowel sounds - Integumentary Integumentary: Present: clear, warm - Psychiatric Psychiatric: appropriate mood/affect, cooperative - Neurologic Neurologic: CNII-XII intact, moves all extremities Results - Labs CBC & Chem 7: 05/02/17 06:07 05/02/17 06:07 Labs: Laboratory Last Values WBC 4.2 K/mm3 (4.5-11.0) L 05/02/17 06:07 RBC 4.31 M/mm3 (3.65-5.03) 05/02/17 06:07 Hgb 12.9 gm/dl (11.8-15.2) 05/02/17 06:07 Hct 38.0 % (35.5-45.6) 05/02/17 06:07 MCV 88 fl (84-94) 05/02/17 06:07 MCH 30 pg (28-32) 05/02/17 06:07 MCHC 34 % (32-34) 05/02/17 06:07 RDW 13.4 % (13.2-15.2) 05/02/17 06:07 Plt Count 206 K/mm3 (140-440) 05/02/17 06:07 Lymph % (Auto) 29.0 % (13.4-35.0) 05/02/17 06:07 [place] % (Auto) 11.8 % (0.0-7.3) H 05/02/17 06:07 Eos % (Auto) 5.5 % (0.0-4.3) H 05/02/17 06:07 Baso % (Auto) 2.2 % (0.0-1.8) H 05/02/17 06:07 Lymph # 1.2 K/mm3 (1.2-5.4) 05/02/17 06:07 [place] # 0.5 K/mm3 (0.0-0.8) 05/02/17 06:07 Eos # 0.2 K/mm3 (0.0-0.4) 05/02/17 06:07 Baso # 0.1 K/mm3 (0.0-0.1) 05/02/17 06:07 Seg Neutrophils % 51.5 % (40.0-70.0) 05/02/17 06:07 Seg Neutrophils # 2.2 K/mm3 (1.8-7.7) 05/02/17 06:07 PT 14.3 Sec. (12.2-14.9) 04/30/17 17:36 INR 1.12 (0.87-1.13) 04/30/17 17:36 D-Dimer 253.22 ng/mlDDU (0-234) H 04/30/17 17:36 Sodium 133 mmol/L (137-145) L 05/02/17 06:07 Potassium 4.2 mmol/L (3.6-5.0) 05/02/17 06:07 Chloride 97.5 mmol/L (98-107) L 05/02/17 06:07 Carbon Dioxide 25 mmol/L (22-30) 05/02/17 06:07 Anion Gap 15 mmol/L 05/02/17 06:07 BUN 8 mg/dL (9-20) L 05/02/17 06:07 Creatinine 1.0 mg/dL (0.8-1.5) 05/02/17 06:07 Estimated GFR > 60 ml/min 05/02/17 06:07 BUN/Creatinine Ratio 8.00 % 05/02/17 06:07 Glucose 99 mg/dL (75-100) 05/02/17 06:07 Calcium 9.9 mg/dL (8.4-10.2) 05/02/17 06:07 Total Creatine Kinase 75 units/L (55-170) 05/01/17 08:24 CK-MB (CK-2) 2.9 ng/mL (0.0-4.0) 05/01/17 08:24 CK-MB (CK-2) Rel Index 3.8 (0-4) 05/01/17 08:24 Troponin T < 0.010 ng/mL (0.00-0.029) 05/01/17 08:24 Lipase 22 units/L (13-60) 04/30/17 17:36 Urine Color Straw (Yellow) 04/30/17 12:17 Urine Turbidity Clear (Clear) 04/30/17 12:17 Urine pH 8.0 (5.0-7.0) H 04/30/17 12:17 Ur Specific [place] 1.004 (1.003-1.030) 04/30/17 12:17 Urine Protein <15 mg/dl mg/dL (Negative) 04/30/17 12:17 Urine Glucose (UA) Neg mg/dL (Negative) 04/30/17 12:17 Urine Ketones Neg mg/dL (Negative) 04/30/17 12:17 Urine Blood Sm (Negative) 04/30/17 12:17 Urine Nitrite Neg (Negative) 04/30/17 12:17 Urine Bilirubin Neg (Negative) 04/30/17 12:17 Urine Urobilinogen < 2.0 mg/dL (<2.0) 04/30/17 12:17 Ur Leukocyte Esterase Neg (Negative) 04/30/17 12:17 Urine WBC (Auto) 1.0 /HPF (0.0-6.0) 04/30/17 12:17 Urine RBC (Auto) 2.0 /HPF (0.0-6.0) 04/30/17 12:17 Salicylates < 0.3 mg/dL (2.8-20.0) L 04/30/17 16:51 Urine Opiates Screen Presumptive negative 04/30/17 12:17 Urine Methadone Screen Presumptive negative 04/30/17 12:17 Acetaminophen < 15.0 ug/mL (10.0-30.0) 04/30/17 16:51 Ur Barbiturates Screen Presumptive negative 04/30/17 12:17 Ur Phencyclidine Scrn Presumptive negative 04/30/17 12:17 Ur Amphetamines Screen Presumptive negative 04/30/17 12:17 U Benzodiazepines Scrn Presumptive negative 04/30/17 12:17 Urine Cocaine Screen Presumptive negative 04/30/17 12:17 U Marijuana (THC) Screen Presumptive negative 04/30/17 12:17 Drugs of Abuse Note Disclamer 04/30/17 12:17 Plasma/Serum Alcohol < 0.01 gm% (0-0.07) 04/30/17 12:22
--- NOTE | 2017-05-02 15:07 | Event Note ---
Date: 05/02/17 Thallium stress test report Date of study 05/01/2017 Left ventricular chamber size is within normal limits. Perfusion study demonstrates homogeneous uptake of the tracer in all segments, no significant perfusion defects identified. Gated analysis demonstrates normal left ventricle systolic function, ejection fraction 61%. Conclusion: Normal myocardial perfusion study.
--- NOTE | 2017-05-02 16:44 | Consultation ---
History of Present Illness - Reason for Consult Reason for consult: SI - Chief Complaint Chief complaint: "To get help for my anxiety" Patient is a 62-year-old white male presents here after noting suicidal ideation at home were his daughter called ambulance to come and pick him up. Subsequently when patient came here he noted multiple medical issues that they' ve emitted him up on the floor. We will see this patient for "suicide statement ". Patient notes that he had a recent stroke and subsequently he's been getting physical therapy. However he felt the physical therapist was positive, on Friday and instead they were not scheduled to come on which lead to him getting increasingly agitated and angry and he knows he made a statement that was construed as being suicidal. Patientthat he's never had any suicide attempts nor any suicidal thoughts at this time. He denies any depression no psychosis no euphoria denies any suicidal thoughts homicidal thoughts auditory or visual hallucinations. His main issue that he is agitated on the unit and states that he has not been given his Xanax as he should be given. Therefore he notes that if he were to get his Xanax everything would be fine. He has not been any issues according to the sitter outside his room. His brother was in there and his brother notes that he has not been concerned over any potential harm from the patient reports himself or others. The brother states that he does not feel that the patient is suicidal at this time Medications and Allergies Allergies Allergy/AdvReac Type Severity Reaction Status Date / Time No Known Allergies Allergy Verified 04/05/17 15:48 Home Medications Medication Instructions Recorded Confirmed Last Taken Type ALPRAZolam [Xanax TAB] 0.25 mg PO QID PRN #90 tablet 04/17/17 04/30/17 Unknown Rx Clopidogrel [Plavix] 75 mg PO QDAY #30 tablet 04/17/17 04/30/17 Unknown Rx Lisinopril [Zestril TAB] 20 mg PO QDAY #30 tablet 04/17/17 04/30/17 Unknown Rx Naphazoline/Phenira 0.025/0.3% 2 drops OS QDAY bottle 04/17/17 04/30/17 Unknown Rx [Visine-A] Nicotine [Habitrol] 21 mg TD QDAY #30 patch 04/17/17 04/30/17 Unknown Rx PARoxetine [Paxil] 10 mg PO DAILY #30 tablet 04/17/17 04/30/17 Unknown Rx Simvastatin [Zocor TAB] 20 mg PO QHS #30 tablet 04/17/17 04/30/17 Unknown Rx Temazepam 30 mg PO QHS #30 capsule 04/17/17 04/30/17 Unknown Rx amLODIPine [Norvasc] 5 mg PO QDAY #30 tablet 04/17/17 04/30/17 Unknown Rx Active Meds: Active Medications Acetaminophen (Tylenol) 650 mg PO Q4H PRN PRN Reason: Pain MILD(1-3)/Fever >100.5/LOYA Last Admin: 05/02/17 06:50 Dose: 650 mg Alprazolam (Xanax) 0.25 mg PO QID PRN PRN Reason: Anxiety Last Admin: 05/02/17 16:25 Dose: 0.25 mg Amlodipine Besylate (Norvasc) 5 mg PO QDAY [facility] Last Admin: 05/02/17 09:46 Dose: 5 mg Bisacodyl (Dulcolax) 10 mg [place] QDAY PRN PRN Reason: Constipation unrelieved by MOM Clopidogrel Bisulfate (Plavix) 75 mg PO QDAY [facility] Last Admin: 05/02/17 09:46 Dose: 75 mg Enoxaparin Sodium (Lovenox) 40 mg SUB-Q QDAY [facility] Last Admin: 05/02/17 09:46 Dose: 40 mg Lisinopril (Zestril) 20 mg PO QDAY [facility] Last Admin: 05/02/17 09:46 Dose: 20 mg Loratadine (Claritin) 10 mg PO QDAY PRN PRN Reason: Allergy Symptoms Last Admin: 05/02/17 06:51 Dose: 10 mg Lorazepam (Ativan) 2 mg IM Q4HR PRN PRN Reason: Agitation Magnesium Hydroxide (Milk Of Magnesia) 30 ml PO Q4H PRN PRN Reason: Constipation Nicotine (Habitrol) 21 mg TD QDAY [facility] Last Admin: 05/02/17 09:46 Dose: 21 mg Ondansetron HCl (Zofran) 4 mg IV Q8H PRN PRN Reason: N/V unrelieved by Reglan Paroxetine HCl (Paxil) 10 mg PO DAILY [facility] Last Admin: 05/02/17 09:46 Dose: 10 mg Simvastatin (Zocor) 20 mg PO QHS [facility] Last Admin: 05/01/17 21:47 Dose: 20 mg Temazepam (Restoril) 30 mg PO QHS [facility] Last Admin: 05/01/17 21:45 Dose: 30 mg Past psychiatric history - Past Medical History Past Medical History: hypertension, stroke - past Psychiatric treatment and history Psych: Anxiety psychiatric treatment history: Patient denies any prior psych history. Inpatient none outpatient no psychiatrist no suicide attempts. Patient states that he is not drinking any alcohol nor using any illicit drug use has not had any abuse while growing up no rehabilitation decided no prior psychiatric medications other than what is on with the one antidepressant in the Xanax. 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 and went to [employer] he has a brother as his main support system at this time with 1 daughter) Mental Status Exam - Vital signs Last Vital Signs Temp 98.6 F 05/02/17 07:55 Pulse 74 05/02/17 07:55 Resp 18 05/02/17 07:55 BP 141/67 05/02/17 07:55 Pulse Ox 100 05/02/17 07:55 - Exam Orientation: time, place, person Affect: anxious, agitated Mood: appropriate Thought Process: Intact Perceptions: none Speech: normal rate and pattern Concentration: focused Motor activity: normal Level of consciousness: alert Memory: Intact Sleep Symptoms: None Interaction: cooperative Mini mental status exam(if necessary): 24-30 Results Result Diagrams: 05/02/17 06:07 05/02/17 06:07 Abnormal lab results 05/02/17 05/02/17 Range/Units 06:07 06:07 WBC 4.2 L (4.5-11.0) K/mm3 [place] % (Auto) 11.8 H (0.0-7.3) % Eos % (Auto) 5.5 H (0.0-4.3) % Baso % (Auto) 2.2 H (0.0-1.8) % Sodium 133 L (137-145) mmol/L Chloride 97.5 L (98-107) mmol/L BUN 8 L (9-20) mg/dL All other labs normal. Assessment and Plan Assessment and plan: Patient is a 62-year-old white male presents here after noting suicidal ideation at home were his daughter called ambulance to come and pick him up. At this time the patient knows that he is not depressed nor suicidal. He states that this is simply a misunderstanding in his collateral brother no set the patient is in no acute risk of harm or others at this time. The patient's main concern or not anything to deal with depression but rather agitation of not getting his proper medications specifically his Xanax. A/P 1. depression- as noted above no acute risk of harm noted by him or family. Rescind 1013 and continue outpt depression medication 2. anxiety- pt notes being on xanax for 7 years- resume xanax at original outpatient dose to prevent any withdrawal.
--- NOTE | 2017-05-02 18:55 | Consultation ---
History of Present Illness - Reason for Consult Consult date: 05/01/17 Lymphadenopathy Requesting physician: JOHNSON GALLAGHER - History of Present Illness This 62 years old male has multiple medical problems. He has admitted on when he came to the emergency room with right lower quadrant pain. Also had occasional pain in the left chest wall. Not cardiac related. CT scan of the abdomen showed it to 0.5 cm lymphadenopathy in the right pelvis. Also a few lymph nodes are noted this in the analilia hepatis area. No significant history for weight loss. No fever allergies. No external lymphadenopathy. CT of the chest did not show any mediastinal lymphadenopathy. We will see if we can get the CT directed biopsy from the right pelvic mass. Past medical history: 1. Hypertension. 2. Anxiety. 3. Right sided hemiparasis with weakness. 4. Hyperlipidemia. 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 went to [employer] school he has a brother as his main support system at this time with 1 daughter) Medications and Allergies Allergies Allergy/AdvReac Type Severity Reaction Status Date / Time No Known Allergies Allergy Verified 04/05/17 15:48 Home Medications Medication Instructions Recorded Confirmed Last Taken Type ALPRAZolam [Xanax TAB] 0.25 mg PO QID PRN #90 tablet 04/17/17 04/30/17 Unknown Rx Clopidogrel [Plavix] 75 mg PO QDAY #30 tablet 04/17/17 04/30/17 Unknown Rx Lisinopril [Zestril TAB] 20 mg PO QDAY #30 tablet 04/17/17 04/30/17 Unknown Rx Naphazoline/Phenira 0.025/0.3% 2 drops OS QDAY bottle 04/17/17 04/30/17 Unknown Rx [Visine-A] Nicotine [Habitrol] 21 mg TD QDAY #30 patch 04/17/17 04/30/17 Unknown Rx PARoxetine [Paxil] 10 mg PO DAILY #30 tablet 04/17/17 04/30/17 Unknown Rx Simvastatin [Zocor TAB] 20 mg PO QHS #30 tablet 04/17/17 04/30/17 Unknown Rx Temazepam 30 mg PO QHS #30 capsule 06/22/17 07/05/17 Unknown Rx amLODIPine [Norvasc] 5 mg PO QDAY #30 tablet 04/17/17 04/30/17 Unknown Rx Active Meds: Active Medications Acetaminophen (Tylenol) 650 mg PO Q4H PRN PRN Reason: Pain MILD(1-3)/Fever >100.5/LOYA Last Admin: 05/02/17 06:50 Dose: 650 mg Alprazolam (Xanax) 0.25 mg PO QID PRN PRN Reason: Anxiety Last Admin: 05/02/17 16:25 Dose: 0.25 mg Amlodipine Besylate (Norvasc) 5 mg PO QDAY [facility] Last Admin: 05/02/17 09:46 Dose: 5 mg Bisacodyl (Dulcolax) 10 mg [place] QDAY PRN PRN Reason: Constipation unrelieved by MOM Clopidogrel Bisulfate (Plavix) 75 mg PO QDAY [facility] Last Admin: 05/02/17 09:46 Dose: 75 mg Enoxaparin Sodium (Lovenox) 40 mg SUB-Q QDAY [facility] Last Admin: 05/02/17 09:46 Dose: 40 mg Lisinopril (Zestril) 20 mg PO QDAY [facility] Last Admin: 05/02/17 09:46 Dose: 20 mg Loratadine (Claritin) 10 mg PO QDAY PRN PRN Reason: Allergy Symptoms Last Admin: 05/02/17 06:51 Dose: 10 mg Lorazepam (Ativan) 2 mg IM Q4HR PRN PRN Reason: Agitation Magnesium Hydroxide (Milk Of Magnesia) 30 ml PO Q4H PRN PRN Reason: Constipation Nicotine (Habitrol) 21 mg TD QDAY [facility] Last Admin: 05/02/17 09:46 Dose: 21 mg Ondansetron HCl (Zofran) 4 mg IV Q8H PRN PRN Reason: N/V unrelieved by Reglan Paroxetine HCl (Paxil) 10 mg PO DAILY [facility] Last Admin: 05/02/17 09:46 Dose: 10 mg Simvastatin (Zocor) 20 mg PO QHS [facility] Last Admin: 05/01/17 21:47 Dose: 20 mg Temazepam (Restoril) 30 mg PO QHS [facility] Last Admin: 05/01/17 21:45 Dose: 30 mg Exam - Constitutional Vitals: Temp Pulse Resp BP Pulse Ox 98.6 F 71 16 158/77 98 07/07/17 14:50 05/02/17 14:50 05/02/17 14:50 05/02/17 14:50 05/02/17 14:50 Results - Labs CBC & Chem 7: 05/02/17 06:07 05/02/17 06:07 Labs: Abnormal lab results 05/02/17 05/02/17 Range/Units 06:07 06:07 WBC 4.2 L (4.5-11.0) K/mm3 [place] % (Auto) 11.8 H (0.0-7.3) % Eos % (Auto) 5.5 H (0.0-4.3) % Baso % (Auto) 2.2 H (0.0-1.8) % Sodium 133 L (137-145) mmol/L Chloride 97.5 L (98-107) mmol/L BUN 8 L (9-20) mg/dL Assessment and Plan Assessment: Lymphadenopathy in the right pelvic area. Lymphadenopathy in the analilia hepatis and retroperitoneum. No B symptoms. Etiology: Undetermined. Rule out lymphoma. Rule out HIV. Rule out CELESTE- positive disease. #2. Hypertension. #3. Anxiety. #4. Suicidal ideation. Plan: We'll get an CELESTE. LFTs HIV. We need to get a CT directed biopsy of the right pelvic lymph node. We will wait for biopsy results and go from there. Regarding other problems: Continue therapy as now.
[2017-05-02] MEDS: RESTORIL PO SCH (22:23)
[2017-05-02] MEDS: ZOCOR PO SCH (22:23)
[2017-05-03] MEDS: XANAX PO PRN ×3 (06:42→21:33)
[2017-05-03] MEDS: CLARITIN PO PRN (06:43)
[2017-05-03] MEDS: PAXIL PO SCH (09:24)
[2017-05-03] MEDS: LOVENOX SUB-Q SCH (09:25)
[2017-05-03] MEDS: PLAVIX PO SCH (09:25)
[2017-05-03] MEDS: NORVASC PO SCH (09:26)
[2017-05-03] MEDS: HABITROL TD SCH (09:27)
--- NOTE | 2017-05-03 09:52 | Progress Note ---
Assessment and Plan Assessment and plan: --Abdominal lymphadenitis/possible lymphoma CT-guided biopsy and follow-up with hematology oncologist for further evaluation and management Patient refused CT-guided biopsy yesterday , patient agrees for biopsy today , CT guided biopsy Hematology oncologist following --Chest pain/acute coronary syndrome Status post stress test, negative for reversible ischemia, patient's symptoms resolved --Suicidal ideation; Patient denies any suicidal thoughts or ideation, psych discontinued 1013 status Follow behavioral health upon discharge --History of CVA; with residual weakness Continue supportive care --Hypertension; moderate control Continue current antihypertensives and when necessary medications --DVT prophylaxis with Lovenox Will closely monitor the patient and adjust management as needed Patient's condition treatment plan discussed in detail with the patient his nurse as well as a case management History Interval history: Feels slightly better, psych discontinued 1013 Alert awake oriented 3 no new complaints Patient agreed for lymph node biopsy today Hospitalist Physical - Constitutional Vitals: Temp Pulse Resp BP Pulse Ox 98 F 58 L 18 120/66 97 05/03/17 08:00 05/03/17 09:26 05/03/17 08:00 05/03/17 09:26 05/03/17 08:00 General appearance: Present: no acute distress, well-nourished - EENT Eyes: Present: PERRL, EOM intact - Neck Neck: Present: supple, normal ROM - Respiratory Respiratory effort: normal Respiratory: negative: rales, rhonchi, wheezing - Cardiovascular Rhythm: regular Heart Sounds: Present: S1 & S2 - Extremities Extremities: no ischemia, No edema - Abdominal General gastrointestinal: soft, non-tender, non-distended, normal bowel sounds - Integumentary Integumentary: Present: clear, warm - Psychiatric Psychiatric: appropriate mood/affect, cooperative - Neurologic Neurologic: CNII-XII intact, moves all extremities, other (residual weakness) Results - Labs CBC & Chem 7: 05/02/17 06:07 05/02/17 06:07 Labs: Laboratory Last Values WBC 4.2 K/mm3 (4.5-11.0) L 05/02/17 06:07 RBC 4.31 M/mm3 (3.65-5.03) 05/02/17 06:07 Hgb 12.9 gm/dl (11.8-15.2) 05/02/17 06:07 Hct 38.0 % (35.5-45.6) 05/02/17 06:07 MCV 88 fl (84-94) 05/02/17 06:07 MCH 30 pg (28-32) 05/02/17 06:07 MCHC 34 % (32-34) 05/02/17 06:07 RDW 13.4 % (13.2-15.2) 05/02/17 06:07 Plt Count 206 K/mm3 (140-440) 05/02/17 06:07 Lymph % (Auto) 29.0 % (13.4-35.0) 05/02/17 06:07 [place] % (Auto) 11.8 % (0.0-7.3) H 05/02/17 06:07 Eos % (Auto) 5.5 % (0.0-4.3) H 05/02/17 06:07 Baso % (Auto) 2.2 % (0.0-1.8) H 05/02/17 06:07 Lymph # 1.2 K/mm3 (1.2-5.4) 05/02/17 06:07 [place] # 0.5 K/mm3 (0.0-0.8) 05/02/17 06:07 Eos # 0.2 K/mm3 (0.0-0.4) 05/02/17 06:07 Baso # 0.1 K/mm3 (0.0-0.1) 05/02/17 06:07 Seg Neutrophils % 51.5 % (40.0-70.0) 05/02/17 06:07 Seg Neutrophils # 2.2 K/mm3 (1.8-7.7) 05/02/17 06:07 PT 14.3 Sec. (12.2-14.9) 04/30/17 17:36 INR 1.12 (0.87-1.13) 04/30/17 17:36 D-Dimer 253.22 ng/mlDDU (0-234) H 04/30/17 17:36 Sodium 133 mmol/L (137-145) L 05/02/17 06:07 Potassium 4.2 mmol/L (3.6-5.0) 05/02/17 06:07 Chloride 97.5 mmol/L (98-107) L 05/02/17 06:07 Carbon Dioxide 25 mmol/L (22-30) 05/02/17 06:07 Anion Gap 15 mmol/L 05/02/17 06:07 BUN 8 mg/dL (9-20) L 05/02/17 06:07 Creatinine 1.0 mg/dL (0.8-1.5) 05/02/17 06:07 Estimated GFR > 60 ml/min 05/02/17 06:07 BUN/Creatinine Ratio 8.00 % 05/02/17 06:07 Glucose 99 mg/dL (75-100) 05/02/17 06:07 Calcium 9.9 mg/dL (8.4-10.2) 05/02/17 06:07 Total Creatine Kinase 75 units/L (55-170) 05/01/17 08:24 CK-MB (CK-2) 2.9 ng/mL (0.0-4.0) 05/01/17 08:24 CK-MB (CK-2) Rel Index 3.8 (0-4) 05/01/17 08:24 Troponin T < 0.010 ng/mL (0.00-0.029) 05/01/17 08:24 Lipase 22 units/L (13-60) 04/30/17 17:36 Urine Color Straw (Yellow) 04/30/17 12:17 Urine Turbidity Clear (Clear) 04/30/17 12:17 Urine pH 8.0 (5.0-7.0) H 04/30/17 12:17 Ur Specific [place] 1.004 (1.003-1.030) 04/30/17 12:17 Urine Protein <15 mg/dl mg/dL (Negative) 04/30/17 12:17 Urine Glucose (UA) Neg mg/dL (Negative) 04/30/17 12:17 Urine Ketones Neg mg/dL (Negative) 04/30/17 12:17 Urine Blood Sm (Negative) 04/30/17 12:17 Urine Nitrite Neg (Negative) 04/30/17 12:17 Urine Bilirubin Neg (Negative) 04/30/17 12:17 Urine Urobilinogen < 2.0 mg/dL (<2.0) 04/30/17 12:17 Ur Leukocyte Esterase Neg (Negative) 04/30/17 12:17 Urine WBC (Auto) 1.0 /HPF (0.0-6.0) 04/30/17 12:17 Urine RBC (Auto) 2.0 /HPF (0.0-6.0) 04/30/17 12:17 Salicylates < 0.3 mg/dL (2.8-20.0) L 04/30/17 16:51 Urine Opiates Screen Presumptive negative 04/30/17 12:17 Urine Methadone Screen Presumptive negative 04/30/17 12:17 Acetaminophen < 15.0 ug/mL (10.0-30.0) 04/30/17 16:51 Ur Barbiturates Screen Presumptive negative 04/30/17 12:17 Ur Phencyclidine Scrn Presumptive negative 04/30/17 12:17 Ur Amphetamines Screen Presumptive negative 04/30/17 12:17 U Benzodiazepines Scrn Presumptive negative 04/30/17 12:17 Urine Cocaine Screen Presumptive negative 04/30/17 12:17 U Marijuana (THC) Screen Presumptive negative 04/30/17 12:17 Drugs of Abuse Note Disclamer 04/30/17 12:17 Plasma/Serum Alcohol < 0.01 gm% (0-0.07) 04/30/17 12:22
[2017-05-03] MEDS: ZESTRIL PO SCH (10:00)
[2017-05-03] MEDS: RESTORIL PO SCH (21:32)
[2017-05-03] MEDS: ZOCOR PO SCH (21:38)
[2017-05-04] MEDS: XANAX PO PRN ×3 (06:08→18:39)
[2017-05-04] MEDS: TYLENOL PO PRN (06:08)
[2017-05-04] MEDS: CLARITIN PO PRN (06:09)
[2017-05-04] MEDS: ZESTRIL PO SCH (09:42)
[2017-05-04] MEDS: NORVASC PO SCH (09:42)
[2017-05-04] MEDS: PLAVIX PO SCH (09:42)
[2017-05-04] MEDS: LOVENOX SUB-Q SCH (09:42)
[2017-05-04] MEDS: PAXIL PO SCH (09:42)
[2017-05-04] MEDS: HABITROL TD SCH (09:42)
--- NOTE | 2017-05-04 11:24 | Progress Note ---
Assessment and Plan Assessment and plan: --Suicidal ideation; Patient denies any suicidal thoughts, psych discontinued 1013 status Follow behavioral health upon discharge -Abdominal lymphadenitis/possible lymphoma CT-guided biopsy tomorrow with out patient follow-up with hematology oncologist for further evaluation and management Hematology oncologist following --Chest pain/acute coronary syndrome Status post stress test, negative for reversible ischemia, patient's symptoms resolved --History of CVA; with residual weakness Continue supportive care --Hypertension; moderate control Continue current antihypertensives and when necessary medications --DVT prophylaxis with Lovenox Will closely monitor the patient and adjust management as needed After biopsy tomorrow if patient is stable and discharged home Plan Of care discussed with the patient and his nurse History Interval history: Seen and evaluated medical records reviewed No new events reported by the nursing staff, and has no new complaints Patient's 1013 is to move, alert awake oriented 3 not in acute distress Scheduled for CT-guided abdominal lymph node biopsy tomorrow Hospitalist Physical - Constitutional Vitals: Temp Pulse Resp BP Pulse Ox 98.7 F 59 L 16 130/76 98 05/03/17 23:00 05/03/17 23:00 05/03/17 23:00 05/03/17 23:00 05/03/17 23:00 General appearance: Present: no acute distress, well-nourished - EENT Eyes: Present: PERRL, EOM intact - Neck Neck: Present: supple, normal ROM - Respiratory Respiratory effort: normal Respiratory: bilateral: diminished, negative: rales, rhonchi, wheezing - Cardiovascular Rhythm: regular Heart Sounds: Present: S1 & S2 - Extremities Extremities: no ischemia, pulses intact, pulses symmetrical - Abdominal General gastrointestinal: soft, non-tender, non-distended, normal bowel sounds - Integumentary Integumentary: Present: clear, warm - Psychiatric Psychiatric: appropriate mood/affect, cooperative - Neurologic Neurologic: CNII-XII intact, moves all extremities Results - Labs CBC & Chem 7: 05/02/17 06:07 05/02/17 06:07 Labs: Laboratory Last Values WBC 4.2 K/mm3 (4.5-11.0) L 05/02/17 06:07 RBC 4.31 M/mm3 (3.65-5.03) 05/02/17 06:07 Hgb 12.9 gm/dl (11.8-15.2) 05/02/17 06:07 Hct 38.0 % (35.5-45.6) 05/02/17 06:07 MCV 88 fl (84-94) 05/02/17 06:07 MCH 30 pg (28-32) 05/02/17 06:07 MCHC 34 % (32-34) 05/02/17 06:07 RDW 13.4 % (13.2-15.2) 05/02/17 06:07 Plt Count 206 K/mm3 (140-440) 05/02/17 06:07 Lymph % (Auto) 29.0 % (13.4-35.0) 05/02/17 06:07 [place] % (Auto) 11.8 % (0.0-7.3) H 05/02/17 06:07 Eos % (Auto) 5.5 % (0.0-4.3) H 05/02/17 06:07 Baso % (Auto) 2.2 % (0.0-1.8) H 05/02/17 06:07 Lymph # 1.2 K/mm3 (1.2-5.4) 05/02/17 06:07 [place] # 0.5 K/mm3 (0.0-0.8) 05/02/17 06:07 Eos # 0.2 K/mm3 (0.0-0.4) 05/02/17 06:07 Baso # 0.1 K/mm3 (0.0-0.1) 05/02/17 06:07 Seg Neutrophils % 51.5 % (40.0-70.0) 05/02/17 06:07 Seg Neutrophils # 2.2 K/mm3 (1.8-7.7) 05/02/17 06:07 PT 14.3 Sec. (12.2-14.9) 04/30/17 17:36 INR 1.12 (0.87-1.13) 04/30/17 17:36 D-Dimer 253.22 ng/mlDDU (0-234) H 04/30/17 17:36 Sodium 133 mmol/L (137-145) L 05/02/17 06:07 Potassium 4.2 mmol/L (3.6-5.0) 05/02/17 06:07 Chloride 97.5 mmol/L (98-107) L 05/02/17 06:07 Carbon Dioxide 25 mmol/L (22-30) 05/02/17 06:07 Anion Gap 15 mmol/L 05/02/17 06:07 BUN 8 mg/dL (9-20) L 05/02/17 06:07 Creatinine 1.0 mg/dL (0.8-1.5) 05/02/17 06:07 Estimated GFR > 60 ml/min 05/02/17 06:07 BUN/Creatinine Ratio 8.00 % 05/02/17 06:07 Glucose 99 mg/dL (75-100) 05/02/17 06:07 Calcium 9.9 mg/dL (8.4-10.2) 05/02/17 06:07 Total Creatine Kinase 75 units/L (55-170) 05/01/17 08:24 CK-MB (CK-2) 2.9 ng/mL (0.0-4.0) 05/01/17 08:24 CK-MB (CK-2) Rel Index 3.8 (0-4) 05/01/17 08:24 Troponin T < 0.010 ng/mL (0.00-0.029) 05/01/17 08:24 Lipase 22 units/L (13-60) 04/30/17 17:36 Urine Color Straw (Yellow) 04/30/17 12:17 Urine Turbidity Clear (Clear) 04/30/17 12:17 Urine pH 8.0 (5.0-7.0) H 04/30/17 12:17 Ur Specific [place] 1.004 (1.003-1.030) 04/30/17 12:17 Urine Protein <15 mg/dl mg/dL (Negative) 04/30/17 12:17 Urine Glucose (UA) Neg mg/dL (Negative) 04/30/17 12:17 Urine Ketones Neg mg/dL (Negative) 04/30/17 12:17 Urine Blood Sm (Negative) 04/30/17 12:17 Urine Nitrite Neg (Negative) 04/30/17 12:17 Urine Bilirubin Neg (Negative) 04/30/17 12:17 Urine Urobilinogen < 2.0 mg/dL (<2.0) 04/30/17 12:17 Ur Leukocyte Esterase Neg (Negative) 04/30/17 12:17 Urine WBC (Auto) 1.0 /HPF (0.0-6.0) 04/30/17 12:17 Urine RBC (Auto) 2.0 /HPF (0.0-6.0) 04/30/17 12:17 Salicylates < 0.3 mg/dL (2.8-20.0) L 04/30/17 16:51 Urine Opiates Screen Presumptive negative 04/30/17 12:17 Urine Methadone Screen Presumptive negative 04/30/17 12:17 Acetaminophen < 15.0 ug/mL (10.0-30.0) 04/30/17 16:51 Ur Barbiturates Screen Presumptive negative 04/30/17 12:17 Ur Phencyclidine Scrn Presumptive negative 04/30/17 12:17 Ur Amphetamines Screen Presumptive negative 04/30/17 12:17 U Benzodiazepines Scrn Presumptive negative 04/30/17 12:17 Urine Cocaine Screen Presumptive negative 04/30/17 12:17 U Marijuana (THC) Screen Presumptive negative 04/30/17 12:17 Drugs of Abuse Note Disclamer 04/30/17 12:17 Plasma/Serum Alcohol < 0.01 gm% (0-0.07) 04/30/17 12:22
[2017-05-04] MEDS: RESTORIL PO SCH (21:23)
[2017-05-04] MEDS: ZOCOR PO SCH (21:24)
--- NOTE | 2017-05-05 08:50 | Progress Note ---
Assessment and Plan Assessment and plan: -Abdominal lymphadenitis/possible lymphoma CT-guided biopsy done today , tolerated the procedure , observe overnight out patient follow-up with hematology oncologist for histopathology and recommendations Discharge home tomorrow --Suicidal ideation; Patient denies any suicidal thoughts, psych discontinued 1013 status Continue psych medications per psychiatric ,Follow behavioral health upon discharge --Chest pain/acute coronary syndrome Status post stress test, negative for reversible ischemia, patient's symptoms resolved --History of CVA; with residual weakness Continue supportive care --Hypertension; moderate control Continue current antihypertensives and when necessary medications --DVT prophylaxis with Lovenox DC home tomorrow if stable Plan of care discussed with the patient, his nurse, case management History Interval history: patient seen and evaluated this morning medical records reviewed Underwent CT-guided biopsy of the abdominal note, tolerated the procedure well No new complaints Alert awake oriented 3 not in acute distress, vital signs stable Hospitalist Physical - Constitutional Vitals: Temp Pulse Resp BP Pulse Ox 98.5 F 62 18 155/73 97 05/04/17 00:00 05/04/17 00:00 05/04/17 00:00 05/04/17 00:00 05/04/17 00:00 General appearance: Present: no acute distress, well-nourished - EENT Eyes: Present: PERRL, EOM intact - Neck Neck: Present: supple, normal ROM - Respiratory Respiratory effort: normal Respiratory: negative: rales, rhonchi, wheezing - Cardiovascular Rhythm: regular Heart Sounds: Present: S1 & S2 - Extremities Extremities: no ischemia, pulses intact Peripheral Pulses: within normal limits - Abdominal General gastrointestinal: soft, non-tender, non-distended, normal bowel sounds - Integumentary Integumentary: Present: clear, warm - Psychiatric Psychiatric: appropriate mood/affect, cooperative - Neurologic Neurologic: CNII-XII intact, moves all extremities Results - Labs CBC & Chem 7: 05/02/17 06:07 05/02/17 06:07 Labs: Laboratory Last Values WBC 4.2 K/mm3 (4.5-11.0) L 05/02/17 06:07 RBC 4.31 M/mm3 (3.65-5.03) 05/02/17 06:07 Hgb 12.9 gm/dl (11.8-15.2) 05/02/17 06:07 Hct 38.0 % (35.5-45.6) 05/02/17 06:07 MCV 88 fl (84-94) 05/02/17 06:07 MCH 30 pg (28-32) 05/02/17 06:07 MCHC 34 % (32-34) 05/02/17 06:07 RDW 13.4 % (13.2-15.2) 05/02/17 06:07 Plt Count 206 K/mm3 (140-440) 05/02/17 06:07 Lymph % (Auto) 29.0 % (13.4-35.0) 05/02/17 06:07 [place] % (Auto) 11.8 % (0.0-7.3) H 05/02/17 06:07 Eos % (Auto) 5.5 % (0.0-4.3) H 05/02/17 06:07 Baso % (Auto) 2.2 % (0.0-1.8) H 05/02/17 06:07 Lymph # 1.2 K/mm3 (1.2-5.4) 05/02/17 06:07 [place] # 0.5 K/mm3 (0.0-0.8) 05/02/17 06:07 Eos # 0.2 K/mm3 (0.0-0.4) 05/02/17 06:07 Baso # 0.1 K/mm3 (0.0-0.1) 05/02/17 06:07 Seg Neutrophils % 51.5 % (40.0-70.0) 05/02/17 06:07 Seg Neutrophils # 2.2 K/mm3 (1.8-7.7) 05/02/17 06:07 PT 14.3 Sec. (12.2-14.9) 04/30/17 17:36 INR 1.12 (0.87-1.13) 04/30/17 17:36 D-Dimer 253.22 ng/mlDDU (0-234) H 04/30/17 17:36 Sodium 133 mmol/L (137-145) L 05/02/17 06:07 Potassium 4.2 mmol/L (3.6-5.0) 05/02/17 06:07 Chloride 97.5 mmol/L (98-107) L 05/02/17 06:07 Carbon Dioxide 25 mmol/L (22-30) 05/02/17 06:07 Anion Gap 15 mmol/L 05/02/17 06:07 BUN 8 mg/dL (9-20) L 05/02/17 06:07 Creatinine 1.0 mg/dL (0.8-1.5) 05/02/17 06:07 Estimated GFR > 60 ml/min 05/02/17 06:07 BUN/Creatinine Ratio 8.00 % 05/02/17 06:07 Glucose 99 mg/dL (75-100) 05/02/17 06:07 Calcium 9.9 mg/dL (8.4-10.2) 05/02/17 06:07 Total Creatine Kinase 75 units/L (55-170) 05/01/17 08:24 CK-MB (CK-2) 2.9 ng/mL (0.0-4.0) 05/01/17 08:24 CK-MB (CK-2) Rel Index 3.8 (0-4) 05/01/17 08:24 Troponin T < 0.010 ng/mL (0.00-0.029) 05/01/17 08:24 Lipase 22 units/L (13-60) 04/30/17 17:36 Urine Color Straw (Yellow) 04/30/17 12:17 Urine Turbidity Clear (Clear) 04/30/17 12:17 Urine pH 8.0 (5.0-7.0) H 04/30/17 12:17 Ur Specific [place] 1.004 (1.003-1.030) 04/30/17 12:17 Urine Protein <15 mg/dl mg/dL (Negative) 04/30/17 12:17 Urine Glucose (UA) Neg mg/dL (Negative) 04/30/17 12:17 Urine Ketones Neg mg/dL (Negative) 04/30/17 12:17 Urine Blood Sm (Negative) 04/30/17 12:17 Urine Nitrite Neg (Negative) 04/30/17 12:17 Urine Bilirubin Neg (Negative) 04/30/17 12:17 Urine Urobilinogen < 2.0 mg/dL (<2.0) 04/30/17 12:17 Ur Leukocyte Esterase Neg (Negative) 04/30/17 12:17 Urine WBC (Auto) 1.0 /HPF (0.0-6.0) 04/30/17 12:17 Urine RBC (Auto) 2.0 /HPF (0.0-6.0) 04/30/17 12:17 Salicylates < 0.3 mg/dL (2.8-20.0) L 04/30/17 16:51 Urine Opiates Screen Presumptive negative 04/30/17 12:17 Urine Methadone Screen Presumptive negative 04/30/17 12:17 Acetaminophen < 15.0 ug/mL (10.0-30.0) 04/30/17 16:51 Ur Barbiturates Screen Presumptive negative 04/30/17 12:17 Ur Phencyclidine Scrn Presumptive negative 04/30/17 12:17 Ur Amphetamines Screen Presumptive negative 04/30/17 12:17 U Benzodiazepines Scrn Presumptive negative 04/30/17 12:17 Urine Cocaine Screen Presumptive negative 04/30/17 12:17 U Marijuana (THC) Screen Presumptive negative 04/30/17 12:17 Drugs of Abuse Note Disclamer 04/30/17 12:17 Plasma/Serum Alcohol < 0.01 gm% (0-0.07) 04/30/17 12:22
[2017-05-05] MEDS ORDERED: BENADRYL IV ONE (09:30)
[2017-05-05] MEDS ORDERED: VERSED IV ONE (09:30)
--- NOTE | 2017-05-05 09:50 | Cat Scan Report ---
CT BIOPSY LYMPH NODE SUPERFICIAL RIGHT HISTORY: Right abdominal/pelvic adenopathy. DESCRIPTION OF PROCEDURE: Informed consent was obtained. Sterile technique was utilized. 1% lidocaine for skin anesthesia. Anxiolysis was accomplished with 3 mg of Versed intravenously. The patient was sedated for 15 minutes. Intra-observer time of 15 minutes. Independent cardiorespiratory monitoring by RN. Using CT guidance, a 17-gauge introducer needle was advanced to the leading edge of right mesenteric adenopathy measuring 3.5 x 2.4 cm in axial plane. 4 separate 18-gauge core biopsies were obtained for pathology. The samples were deemed adequate by the pathologist on site. No complications. IMPRESSION: Successful CT-guided biopsy of right mesenteric adenopathy.
[2017-05-05] MEDS: ZESTRIL PO SCH (10:21)
[2017-05-05] MEDS: HABITROL TD SCH (10:21)
[2017-05-05] MEDS: NORVASC PO SCH (10:22)
[2017-05-05] MEDS: PAXIL PO SCH (10:23)
[2017-05-05] MEDS: PLAVIX PO SCH (10:23)
[2017-05-05] MEDS: XANAX PO PRN ×2 (10:23→16:29)
--- NOTE | 2017-05-05 10:48 | Progress Note ---
Subjective - Reason for Consult Consult date: 05/05/17 Reason for consult: Psychiatry Follow-up - Chief Complaint Chief complaint: "I have anxiety" Patient is a 62-year-old white male presents here after noting suicidal ideation at home. Today patient is calm and cooperative during assessment. He stated a hx of anxiety. He stated that he feels good today and rate his anxiety 3/10, with 10 being the worse. Patient denies being suicidal now or in the past. He was observed eating his breakfast. Per the staff, no behavioral disturbance overnight. He denies AVH's, sleep disturbance , and a poor appetite. Mental Status Exam - Vital signs Last Vital Signs Temp 98.5 F 05/04/17 00:00 Pulse 56 L 05/05/17 10:22 Resp 19 05/05/17 09:36 BP 144/71 05/05/17 10:22 Pulse Ox 99 05/05/17 09:36 - Exam Narrative exam: MSE: Appearance: calm, cooperative Behavior: good eye contact Speech: regular rate and tone Mood: "feel pretty good" Affect: euthymic Thought Process: linear Thought Content: denies SI/HI's and AVH's Motor Activity: sitting up in bed Cognition: A/Ox 3 Insight: fair Judgment: fair Assessment and Plan Impression: Depressive DO, Anxiety DO. Today patient is calm and cooperative during assessment. He denies SI/HI's. Recommendation/Plan: Continue Paxil 10 mg PO daily and Xanax 0.25 mg QID prn. Discussed possible suicidality/medication induced raymundo with patient reference antidepressants.
[2017-05-05] MEDS: LOVENOX SUB-Q SCH (11:38)
[2017-05-05] MEDS: RESTORIL PO SCH (22:31)
[2017-05-05] MEDS: ZOCOR PO SCH (22:31)
[2017-05-06] MEDS: TYLENOL PO PRN (04:14)
[2017-05-06 07:23] LABS: Basophils % (Auto) 1.4 % (0.0-1.8); Eosinophils % (Auto) 4.5 % (0.0-4.3); Hematocrit 37.8 % (35.5-45.6); Mean Corpuscular HGB Conc 34 % (32-34); Mean Corpuscular Hemoglobin 30 pg (28-32); Mean Corpuscular Volume 88 fl (84-94); Platelet Count 192 K/mm3 (140-440); Red Blood Count 4.31 M/mm3 (3.65-5.03); Red Cell Distribution Width 12.9 % (13.2-15.2); White Blood Count 6.1 K/mm3 (4.5-11.0)
--- NOTE | 2017-05-06 07:58 | Discharge Summary ---
Providers - Providers Date of Admission: 04/30/17 23:54 Date of discharge: 05/06/17 Attending physician: DEX KNIGHT 05/01/17 04:48 Speech Therapy Evaluation and Treat [CONS] Routine Reason For Exam: SI 05/01/17 05:05 Consult to Physician [CONS] Routine Consulting Provider: JAZIEL SABA Reason For Exam: LAD Notified:: bilingual secretary pl call 05/02/17 10:17 psychiatry consult [Consult to Mental Health] [CONS] Routine Reason For Exam: suicidal/1013/patient denies suicidal thots Place consult to:: [facility] Notified:: catherine Phone number called:: [phone] Was contact made?: Yes If yes, spoke with:: catherine Time called:: 15:54 Primary care physician: FORMULA MAKER Hospitalization Reason for admission: suicidal ideation/abdominal pain Condition: Stable Pertinent studies: CT abdomen and pelvis;: suspicion for 3.22.9 cm soft tissue mass in the right side of the upper pelvis, prominent prostate gland, cholelithiasis,no cholecystitis, cysts in the kidney CT head; no acute intracranial abnormality noted CTA chest; no PE Repeat abdomen and pelvis CT; 2.23.5 cm mass in the right lower abdomen most likely of erika oxygen Enlarged lymph nodes in the analilia hepatis mesentery and retroperitoneum, the largest retroperitoneal lymph node located in the left of the aorta, lymphoma would be the most likely etiology, metastatic lymphadenopathy possible Stress test; negative for reversible ischemia Lymph node biopsy; CT guided lymph node biopsy Hospital course: 65-year-old male patient with a significant past medical history of hypertension and anxiety CVA right-sided weakness dyslipidemia was admitted through emergency room with frustration and suicidal ideation. , In the emergency room patient was complaining of abdominal pain, extensively evaluated , CT abdomen showed multiple abdominal notes possible for lymphoma versus metastatic lesions, Patient was placed on 1013/suicidal watch admitted to the hospital, evaluated by psychiatric initially recommended inpatient psych transfer once medically stable, however later patient was released of 1012 and felt safe to be discharged home when medically stable Patient also had CT-guided lymph node biopsy done, and was advised to follow up with hematology oncologist Dr. del toro upon discharge The day of discharge patient was comfortable no new complaints, Vital signs are stable [id number] evaluation physical examination done by nh prior to discharge was unremarkable Patient was hemodynamically and clinically stable at the time of discharge Discharge diagnoses; Abdominal lymphadenitis possible lymphoma Status post CT-guided biopsy Suicidal ideation on 1013 1013 discontinued Chest pain/acute coronary syndrome/negative stress test History of CVA with residual weakness Hypertension Disposition: DC/TX-06 HOME UNDER HOME HLTH Time spent for discharge: 35 min Core Measure Documentation - Palliative Care Palliative Care/ Comfort Measures: Not Applicable - Core Measures Any of the following diagnoses?: none Exam - Constitutional Vitals: Temp Pulse Resp BP Pulse Ox 98.9 F 62 18 119/70 97 05/05/17 22:00 05/05/17 22:00 05/05/17 22:00 05/05/17 22:00 05/05/17 22:00 General appearance: Present: no acute distress, well-nourished - EENT Eyes: Present: PERRL, EOM intact - Neck Neck: Present: supple, normal ROM - Respiratory Respiratory effort: normal Respiratory: bilateral: diminished, negative: rales, rhonchi, wheezing - Cardiovascular Rhythm: regular Heart Sounds: Present: S1 & S2 - Extremities Extremities: no ischemia, No edema Peripheral Pulses: within normal limits - Abdominal General gastrointestinal: Present: soft, non-tender, non-distended, normal bowel sounds - Integumentary Integumentary: Present: clear, warm - Musculoskeletal Musculoskeletal: strength equal bilaterally - Psychiatric Psychiatric: appropriate mood/affect, cooperative - Neurologic Neurologic: CNII-XII intact, moves all extremities (residual weakness old CVA) Plan Activity: advance as tolerated, fall precautions Diet: other (cardiac diet) Special Instructions: physical therapy Additional Instructions: Biopsy report will be discussed with you when you see metallurgical analyst oncologist in 1 week. If you have chest pain or shortness of breath, contact M.D.or go to emergency Follow up with: ZE MARTINEZ MD [Primary Care Provider] - 3-5 Days JAZIEL SABA MD [Staff Physician] - 7 Days
[2017-05-06] MEDS: XANAX PO PRN (09:39)
[2017-05-06] MEDS: HABITROL TD SCH (09:40)
[2017-05-06] MEDS: LOVENOX SUB-Q SCH (09:40)
[2017-05-06] MEDS: PAXIL PO SCH (09:41)
[2017-05-06] MEDS: NORVASC PO SCH ×2 (09:41→09:44)
[2017-05-06] MEDS: PLAVIX PO SCH (09:41)
[2017-05-06] MEDS: ZESTRIL PO SCH (09:42)
[2017-05-06 09:47] VITALS: BP 144/71
[2017-05-06] MEDS: CLARITIN PO PRN (09:57)
--- NOTE | 2017-05-06 10:31 | Progress Note ---
Subjective - Reason for Consult Consult date: 05/06/17 Reason for consult: Mental Health Evaluation - Chief Complaint Chief complaint: "I feel well today" Patient is a 62-year-old white male presents here after noting suicidal ideation at home. Today patient is calm and cooperative during assessment. He stated that he feel well. He rate his anxiety 1/10, with 10 being the worse. He denies SI/HI's, AVH's, and depression. Mental Status Exam - Vital signs Last Vital Signs Temp 97.9 F 05/06/17 08:00 Pulse 60 05/06/17 08:00 Resp 18 05/06/17 08:00 BP 116/69 05/06/17 08:00 Pulse Ox 98 05/06/17 08:00 - Exam Narrative exam: MSE: Appearance: calm, cooperative Behavior: good eye contact Speech: regular rate and tone Mood: "feel pretty good" Affect: euthymic Thought Process: linear Thought Content: denies SI/HI's and AVH's Motor Activity: sitting up in bed Cognition: A/Ox 3 Insight: fair Judgment: fair Assessment and Plan Impression: Depressive DO, Anxiety DO. Today patient is calm and cooperative during assessment. He denies SI/HI's. Recommendation/Plan: Continue Paxil 10 mg PO daily and Xanax 0.25 mg QID prn. Discussed possible suicidality/medication induced raymundo with patient reference antidepressants. Patient prefer to follow up with his PCP for outpatient psy services. Psychiatry signs off this patient. Reconsult when indicated.
== END 2017-05-06 14:30 | disposition home health service (06) | DRG 824 ==
LOC: ED 11:37 → 3A 23:54
PROVIDERS: ADMIT Internal Medicine; ATTEND Internal Medicine
PROC: 07BB3ZX Excision of Mesenteric Lymphatic, Percutaneous Approach, Diagnostic (ICD-10-PCS; principal; 2017-05-05)
DX: C85.93 Non-Hodgkin lymphoma, unspecified, intra-abdominal lymph nodes (principal); R45.851 Suicidal ideations; I69.954 Hemiplegia and hemiparesis following unspecified cerebrovascular disease affecting left non-dominant side; I24.9 Acute ischemic heart disease, unspecified; I10 Essential (primary) hypertension; F41.9 Anxiety disorder, unspecified; E78.5 Hyperlipidemia, unspecified; I88.0 Nonspecific mesenteric lymphadenitis; F32.9 Major depressive disorder, single episode, unspecified; Z87.891 Personal history of nicotine dependence; Z82.49 Family history of ischemic heart disease and other diseases of the circulatory system
CPT/HCPCS: 36415; 70450; 71010; 71275; 74176; 74177; 77012; 78452; 80048; 80307; 80320; 81001; 82550; 82553; 83690; 84484; 85025; 85379; 85610; 88173; 88305; 88333; 88341; 88342; 93005; 93010; 93017; 94770; 96374; 99285; 99406; A9502; G0480; J1200; J1650; J2060; J2250; J2785; J7030; Q9967

== ENCOUNTER 2017-06-17 10:23 | Outpatient (CLI) | payer BC ==
--- NOTE | 2017-06-19 10:15 | Nuclear Medicine Report ---
NUCLEAR MEDICINE TUMOR LOCAL WHOLE-BODY 2 DAYS NUCLEAR MEDICINE TUMOR LOCAL SPECT History: Neuroendocrine cancer, right pelvic node. Technique: 6 mCi of indium-111 was administered. 4 hour and 24-hour whole body images were obtained. SPECT imaging of the chest, abdomen and pelvis were obtained. Findings: No comparison nuclear medicine scan. Correlation is made with CTs of the chest, abdomen and pelvis performed 04/30/17. There are 3 or 4 small areas of increased radiotracer uptake in the left paraspinal/para-aortic region in the lower chest. This correlates with multiple small lymph nodes seen on CT chest. There are multiple nearly contiguous areas of uptake in the mid abdomen which correlate with multiple enlarged mesenteric lymph nodes on CT abdomen and pelvis. There is a focal area of increased uptake in the right posterior iliac bone which correlates with a subtle area of sclerosis on CT. Impression: Abnormal radiotracer uptake is identified in multiple para-aortic lymph nodes in the lower chest, mesenteric lymph nodes in the mid abdomen, and a solitary right posterior iliac bone lesion.
== END 2017-06-17 10:24 | disposition home or self-care (01) ==
LOC: NM 10:23
PROVIDERS: ATTEND Internal Medicine Hematology & Oncology
DX: C7A.8 Other malignant neuroendocrine tumors (principal); I63.9 Cerebral infarction, unspecified; R59.9 Enlarged lymph nodes, unspecified; M89.9 Disorder of bone, unspecified; I10 Essential (primary) hypertension; F32.9 Major depressive disorder, single episode, unspecified; F41.9 Anxiety disorder, unspecified; Z87.891 Personal history of nicotine dependence
CPT/HCPCS: 78803; 78804; A9572

== ENCOUNTER 2019-12-26 11:27 | Inpatient (IN) | payer BC, OTHER ==
[2019-12-26] MEDS ORDERED: dilTIAZem 50 MG/10 ML INJ ONE (11:43)
[2019-12-26] MEDS ORDERED: SODIUM CHLORIDE 0.9% 1000 ML 1,000 ML IV ONE ×2 (11:46→14:27)
[2019-12-26] MEDS ORDERED: ASPIRIN 81 MG TAB CHEW PO ONE (11:46)
[2019-12-26] MEDS ORDERED: dilTIAZem 25 MG/5 ML INJ IV ONE ×2 (11:46→12:30)
[2019-12-26] MEDS ORDERED: SODIUM CHLORIDE 0.9% 1000 ML 1,000 ML ONE ×2 (11:47→14:30)
--- NOTE | 2019-12-26 11:51 | Emergency Department Report ---
ED Palpitations HPI - General Chief Complaint: Arrhythmia/Palpitations Stated Complaint: SHORTNESS OF BREATH Time Seen by Provider: 12/26/19 11:46 Source: patient, EMS Mode of arrival: Stretcher Limitations: No Limitations - History of Present Illness Initial Comments: Patient is 64 years old male with history of hypertension, paroxysmal atrial fibrillation, CVA 3 years ago with complete resolution. Patient brought to the emergency room from [facility] after patient experienced palpitation and shortness of breath while he is sitting. Patient patient stated that he felt his heart is fluttering. Upon arrival to the ER patient found to be in atrial fibrillation with RVR with a heart rate of 150. Patient given Cardizem 10 mg and started on Cardizem drip with significant improvement in the heart rate. MD Complaint: rapid heart beat, "heart racing", irregular heart beat -: Sudden, This morning Context: occured during rest Arrythmia History: atrial fibrillation Associated Symptoms: chest pain - Related Data Previous Rx's Medication Instructions Recorded Last Taken Type ALPRAZolam [Xanax TAB] 0.25 mg PO QID PRN #90 tablet 04/17/17 Unknown Rx Clopidogrel [Plavix] 75 mg PO QDAY #30 tablet 04/17/17 Unknown Rx Naphazoline/Phenira 0.025/0.3% 2 drops OS QDAY bottle 04/17/17 Unknown Rx [Visine-A] Nicotine [Habitrol] 21 mg TD QDAY #30 patch 04/17/17 Unknown Rx PARoxetine [Paxil] 10 mg PO DAILY #30 tablet 04/17/17 Unknown Rx Simvastatin (Nf) [Zocor TAB] 20 mg PO QHS #30 tablet 04/17/17 Unknown Rx Temazepam 30 mg PO QHS #30 capsule 04/17/17 Unknown Rx amLODIPine 5 mg PO QDAY #30 tablet 04/17/17 Unknown Rx lisinopriL [Zestril TAB] 20 mg PO QDAY #30 tablet 04/17/17 Unknown Rx Allergies Allergy/AdvReac Type Severity Reaction Status Date / Time Penicillins Allergy Severe Anaphylaxis Verified 05/05/17 08:53 ED Review of Systems ROS: Stated complaint: SHORTNESS OF BREATH Other details as noted in HPI Comment: All other systems reviewed and negative Constitutional: denies: chills, fever Respiratory: shortness of breath. denies: cough Cardiovascular: chest pain, palpitations Gastrointestinal: denies: abdominal pain, nausea, vomiting ED Past Medical Hx - Past Medical History Previous Medical History?: Yes Hx Hypertension: Yes Hx CVA: Yes Hx Congestive Heart Failure: No Hx Diabetes: No Hx Deep Vein Thrombosis: No Hx Pulmonary Embolism: No Hx Sickle Cell Disease: No Hx Psychiatric Treatment: (anxiety) Hx Asthma: No Hx COPD: No Hx Tuberculosis: No Hx HIV: No - Surgical History Hx Coronary Stent: No Hx Pacemaker: No Hx Internal Defibrillator: No - Social History Smoking Status: Former Smoker - Medications Home Medications: Home Medications Medication Instructions Recorded Confirmed Last Taken Type ALPRAZolam [Xanax TAB] 0.25 mg PO QID PRN #90 tablet 04/17/17 04/30/17 Unknown Rx Clopidogrel [Plavix] 75 mg PO QDAY #30 tablet 04/17/17 04/30/17 Unknown Rx Naphazoline/Phenira 0.025/0.3% 2 drops OS QDAY bottle 04/17/17 04/30/17 Unknown Rx [Visine-A] Nicotine [Habitrol] 21 mg TD QDAY #30 patch 04/17/17 04/30/17 Unknown Rx PARoxetine [Paxil] 10 mg PO DAILY #30 tablet 04/17/17 04/30/17 Unknown Rx Simvastatin (Nf) [Zocor TAB] 20 mg PO QHS #30 tablet 04/17/17 04/30/17 Unknown Rx Temazepam 30 mg PO QHS #30 capsule 04/17/17 04/30/17 Unknown Rx amLODIPine 5 mg PO QDAY #30 tablet 04/17/17 04/30/17 Unknown Rx lisinopriL [Zestril TAB] 20 mg PO QDAY #30 tablet 04/17/17 04/30/17 Unknown Rx ED Physical Exam - General Limitations: No Limitations General appearance: alert, in distress (Moderate respiratory distress) - Head Head exam: Present: atraumatic, normocephalic, normal inspection - Eye Eye exam: Present: normal appearance - ENT ENT exam: Present: normal exam, normal orophraynx, mucous membranes moist - Neck Neck exam: Present: normal inspection, full ROM. Absent: tenderness, meningismus - Respiratory Respiratory exam: Present: normal lung sounds bilaterally. Absent: respiratory distress, wheezes, rales, rhonchi, accessory muscle use, decreased breath sounds, prolonged expiratory - Cardiovascular Cardiovascular Exam: Present: tachycardia, irregular rhythm - GI/Abdominal GI/Abdominal exam: Present: soft, normal bowel sounds. Absent: distended, tenderness, guarding, rebound, rigid, organomegaly, mass, bruit, pulsatile mass, hernia - Extremities Exam Extremities exam: Present: normal inspection, full ROM, normal capillary refill. Absent: tenderness, pedal edema, calf tenderness - Back Exam Back exam: Present: normal inspection, full ROM. Absent: CVA tenderness (R), CVA tenderness (L) - Neurological Exam Neurological exam: Present: alert, oriented X3, CN II-XII intact, normal gait, reflexes normal. Absent: motor sensory deficit - Psychiatric Psychiatric exam: Present: normal mood - Skin Skin exam: Present: warm, intact, normal color ED Course Vital Signs 12/26/19 12/26/19 12/26/19 11:40 11:59 12:20 Pulse Rate 140 H 131 H 140 H Respiratory 20 Rate Blood Pressure 121/48 156/40 O2 Sat by Pulse 96 Oximetry 12/26/19 12:37 Pulse Rate 125 H Respiratory Rate Blood Pressure 156/58 O2 Sat by Pulse Oximetry ED Medical Decision Making - Lab Data Result diagrams: 12/26/19 12:02 12/26/19 12:02 - EKG Data -: EKG Interpreted by Az Rate: tachycardia - EKG Data 12/26/19 12:55 Atrial fibrillation with RVR heart rate of 150 bpm - Medical Decision Making Patient is 64 years old male with history of hypertension, paroxysmal atrial fibrillation, CVA 3 years ago with complete resolution. Patient brought to the emergency room from [facility] after patient experienced palpitation and shortness of breath while he is sitting. Patient patient stated that he felt his heart is fluttering. Upon arrival to the ER patient found to be in atrial fibrillation with RVR with a heart rate of 150. Patient given Cardizem 20 mg and started on Cardizem drip with significant improvement in the heart rate. Labs reviewed and is unremarkable. I discussed the patient with Dr. Perrin, he advised to admit the patient to medical service for further management. Critical Care Time: Yes Critical care time in (mins) excluding proc time.: 30 Critical care attestation.: If time is entered above; I have spent that time in minutes in the direct care of this critically ill patient, excluding procedure time. ED Disposition Clinical Impression: Atrial fibrillation with RVR, Shortness of breath Disposition: DC-09 OP ADMIT IP TO THIS HOSP Is pt being admited?: Yes Condition: Stable
[2019-12-26 12:12] LABS: Bilirubin,Urine NEG (Negative); Blood,Urine NEG (Negative); Color,Urine Yellow (Yellow); Mucus,Urine FEW /HPF; Protein,Urine <15 mg/dL mg/dL (Negative); Urobilinogen,Urine < 2.0 mg/dL (<2.0)
[2019-12-26 12:29] LABS: Basophils % (Auto) 1.1 % (0.0-1.8); Eosinophils # (Auto) 0.1 K/mm3 (0.0-0.4); Eosinophils % (Auto) 2.1 % (0.0-4.3); Hematocrit 34.3 % (35.5-45.6); Hemoglobin 11.1 gm/dl (11.8-15.2); Lymphocytes # (Auto) 0.7 K/mm3 (1.2-5.4); Mean Corpuscular HGB Conc 33 % (32-34); Mean Corpuscular Volume 85 fl (84-94); Monocytes # (Auto) 0.4 K/mm3 (0.0-0.8); Platelet Count 174 K/mm3 (140-440); Red Blood Count 4.04 M/mm3 (3.65-5.03); Red Cell Distribution Width 14.8 % (13.2-15.2)
[2019-12-26] MEDS: dilTIAZem/D5W 100 MG/100 ML BAG IV SCH ×2 (12:37→21:19)
[2019-12-26 12:40] LABS: INR 1.15 (0.87-1.13)
[2019-12-26 12:41] LABS: Partial Thromboplastin Time 34.3 Sec. (24.2-36.6)
[2019-12-26 12:52] LABS: BUN/Creatinine Ratio 7; Blood Urea Nitrogen 8 mg/dL (9-20); Calcium 9.6 mg/dL (8.4-10.2); Hemolysis Index 4
[2019-12-26 12:54] LABS: Alanine Aminotransferase 10 units/L (7-56); Albumin 3.9 g/dL (3.9-5)
[2019-12-26 12:55] LABS: Bilirubin,Direct < 0.2 mg/dL (0-0.2)
--- NOTE | 2019-12-26 16:24 | History and Physical Report ---
History of Present Illness Date of examination: 12/26/19 Date of admission: 12/26/19 12:56 History of present illness: Patient is 64 years old male with history of hypertension, paroxysmal atrial fibrillation, CVA 3 years ago with complete resolution. Patient brought to the emergency room from [facility] after patient experienced palpitation and shortness of breath while he is sitting. Patient patient stated that he felt his heart is fluttering. Upon arrival to the ER patient found to be in atrial fibrillation with RVR with a heart rate of 150. Patient given Cardizem 10 mg and started on Cardizem drip with significant improvement in the heart rate. MD Complaint: rapid heart beat, "heart racing", irregular heart beat -: Sudden, This morning Context: occured during rest Arrythmia History: atrial fibrillation Associated Symptoms: chest pain - Related Data Previous Rx's Medication Instructions Recorded Last Taken Type ALPRAZolam [Xanax TAB] 0.25 mg PO QID PRN #90 tablet 04/17/17 Unknown Rx Clopidogrel [Plavix] 75 mg PO QDAY #30 tablet 04/17/17 Unknown Rx Naphazoline/Phenira 0.025/0.3% 2 drops OS QDAY bottle 04/17/17 Unknown Rx [Visine-A] Nicotine [Habitrol] 21 mg TD QDAY #30 patch 04/17/17 Unknown Rx PARoxetine [Paxil] 10 mg PO DAILY #30 tablet 04/17/17 Unknown Rx Simvastatin (Nf) [Zocor TAB] 20 mg PO QHS #30 tablet 04/17/17 Unknown Rx Temazepam 30 mg PO QHS #30 capsule 04/17/17 Unknown Rx amLODIPine 5 mg PO QDAY #30 tablet 04/17/17 Unknown Rx lisinopriL [Zestril TAB] 20 mg PO QDAY #30 tablet 04/17/17 Unknown Rx Allergies Allergy/AdvReac Type Severity Reaction Status Date / Time Penicillins Allergy Severe Anaphylaxis Verified 05/05/17 08:53 ED Review of Systems ROS: Stated complaint: SHORTNESS OF BREATH Other details as noted in HPI Comment: All other systems reviewed and negative Constitutional: denies: chills, fever Respiratory: shortness of breath. denies: cough Cardiovascular: chest pain, palpitations Gastrointestinal: denies: abdominal pain, nausea, vomiting Past Medical History Previous Medical History?: Yes Hypertension: Yes CVA: Yes Hx Psychiatric Treatment: (anxiety) Surgical History No Social History Smoking Status: Former Smoker Family History Htn - Medications Home Medications: Home Medications Medication Instructions Recorded Confirmed Last Taken Type ALPRAZolam [Xanax TAB] 0.25 mg PO QID PRN #90 tablet 04/17/17 04/30/17 Unknown Rx Clopidogrel [Plavix] 75 mg PO QDAY #30 tablet 04/17/17 04/30/17 Unknown Rx Naphazoline/Phenira 0.025/0.3% 2 drops OS QDAY bottle 04/17/17 04/30/17 Unknown Rx [Visine-A] Nicotine [Habitrol] 21 mg TD QDAY #30 patch 04/17/17 04/30/17 Unknown Rx PARoxetine [Paxil] 10 mg PO DAILY #30 tablet 04/17/17 04/30/17 Unknown Rx Simvastatin (Nf) [Zocor TAB] 20 mg PO QHS #30 tablet 04/17/17 04/30/17 Unknown Rx Temazepam 30 mg PO QHS #30 capsule 04/17/17 04/30/17 Unknown Rx amLODIPine 5 mg PO QDAY #30 tablet 04/17/17 04/30/17 Unknown Rx lisinopriL [Zestril TAB] 20 mg PO QDAY #30 tablet 04/17/17 04/30/17 Unknown Rx Medications and Allergies Allergies Allergy/AdvReac Type Severity Reaction Status Date / Time Penicillins Allergy Severe Anaphylaxis Verified 05/05/17 08:53 Home Medications Medication Instructions Recorded Confirmed Last Taken Type Clopidogrel [Plavix] 75 mg PO QDAY #30 tablet 04/17/17 12/26/19 Unknown Rx Simvastatin (Nf) [Zocor TAB] 20 mg PO QHS #30 tablet 04/17/17 12/26/19 Unknown Rx amLODIPine 5 mg PO QDAY #30 tablet 04/17/17 12/26/19 Unknown Rx lisinopriL [Zestril TAB] 20 mg PO QDAY #30 tablet 04/17/17 12/26/19 Unknown Rx ALPRAZolam [Xanax TAB] 0.25 mg PO BID PRN 12/26/19 12/26/19 Unknown History PARoxetine [Paxil] 20 mg PO DAILY 12/26/19 12/26/19 Unknown History Temazepam 15 mg PO QHS 12/26/19 12/26/19 Unknown History Active Meds: Active Medications Diltiazem HCl (Cardizem/D5w 100mg/100ml) 100 mg in 100 mls @ 5 mls/hr IV TITR MIAN; Protocol Last Titration: 12/26/19 15:05 Dose: 12.5 mg/hr, 12.5 mls/hr Documented by: Exam - Constitutional Vitals: Temp Pulse Resp BP Pulse Ox 98.3 F 124 H 16 130/70 98 12/26/19 14:21 12/26/19 14:15 12/26/19 14:15 12/26/19 14:15 12/26/19 14:15 Results - Labs CBC & Chem 7: 12/26/19 12:02 12/26/19 12:02 Labs: Laboratory Last Values WBC 4.7 K/mm3 (4.5-11.0) 12/26/19 12:02 RBC 4.04 M/mm3 (3.65-5.03) 12/26/19 12:02 Hgb 11.1 gm/dl (11.8-15.2) L 12/26/19 12:02 Hct 34.3 % (35.5-45.6) L 12/26/19 12:02 MCV 85 fl (84-94) 12/26/19 12:02 MCH 28 pg (28-32) 12/26/19 12:02 MCHC 33 % (32-34) 12/26/19 12:02 RDW 14.8 % (13.2-15.2) 12/26/19 12:02 Plt Count 174 K/mm3 (140-440) 12/26/19 12:02 Lymph % (Auto) 16.0 % (13.4-35.0) 12/26/19 12:02 [place] % (Auto) 8.0 % (0.0-7.3) H 12/26/19 12:02 Eos % (Auto) 2.1 % (0.0-4.3) 12/26/19 12:02 Baso % (Auto) 1.1 % (0.0-1.8) 12/26/19 12:02 Lymph # 0.7 K/mm3 (1.2-5.4) L 12/26/19 12:02 [place] # 0.4 K/mm3 (0.0-0.8) 12/26/19 12:02 Eos # 0.1 K/mm3 (0.0-0.4) 12/26/19 12:02 Baso # 0.0 K/mm3 (0.0-0.1) 12/26/19 12:02 Seg Neutrophils % 72.8 % (40.0-70.0) H 12/26/19 12:02 Seg Neutrophils # 3.4 K/mm3 (1.8-7.7) 12/26/19 12:02 PT 14.9 Sec. (12.2-14.9) 12/26/19 12:02 INR 1.15 (0.87-1.13) H 12/26/19 12:02 APTT 34.3 Sec. (24.2-36.6) 12/26/19 12:02 Sodium 140 mmol/L (137-145) 12/26/19 12:02 Potassium 4.3 mmol/L (3.6-5.0) 12/26/19 12:02 Chloride 105.0 mmol/L (98-107) 12/26/19 12:02 Carbon Dioxide 22 mmol/L (22-30) 12/26/19 12:02 Anion Gap 17 mmol/L 12/26/19 12:02 BUN 8 mg/dL (9-20) L 12/26/19 12:02 Creatinine 1.1 mg/dL (0.8-1.5) 12/26/19 12:02 Estimated GFR > 60 ml/min 12/26/19 12:02 BUN/Creatinine Ratio 7 % 12/26/19 12:02 Glucose 99 mg/dL (75-100) 12/26/19 12:02 Calcium 9.6 mg/dL (8.4-10.2) 12/26/19 12:02 Magnesium 1.80 mg/dL (1.7-2.3) 12/26/19 12:02 Total Bilirubin 0.70 mg/dL (0.1-1.2) 12/26/19 12:02 Direct Bilirubin < 0.2 mg/dL (0-0.2) 12/26/19 12:02 Indirect Bilirubin 0.5 mg/dL 12/26/19 12:02 AST 19 units/L (5-40) 12/26/19 12:02 ALT 10 units/L (7-56) 12/26/19 12:02 Alkaline Phosphatase 89 units/L (35-129) 12/26/19 12:02 Troponin T 0.012 ng/mL (0.00-0.029) 12/26/19 14:56 Total Protein 6.6 g/dL (6.3-8.2) 12/26/19 12:02 Albumin 3.9 g/dL (3.9-5) 12/26/19 12:02 Albumin/Globulin Ratio 1.4 % 12/26/19 12:02 Urine Color Yellow (Yellow) 12/26/19 11:46 Urine Turbidity Clear (Clear) 12/26/19 11:46 Urine pH 5.0 (5.0-7.0) 12/26/19 11:46 Ur Specific [place] 1.008 (1.003-1.030) 12/26/19 11:46 Urine Protein <15 mg/dl mg/dL (Negative) 12/26/19 11:46 Urine Glucose (UA) Neg mg/dL (Negative) 12/26/19 11:46 Urine Ketones Neg mg/dL (Negative) 12/26/19 11:46 Urine Blood Neg (Negative) 12/26/19 11:46 Urine Nitrite Neg (Negative) 12/26/19 11:46 Urine Bilirubin Neg (Negative) 12/26/19 11:46 Urine Urobilinogen < 2.0 mg/dL (<2.0) 12/26/19 11:46 Ur Leukocyte Esterase Neg (Negative) 12/26/19 11:46 Urine WBC (Auto) 1.0 /HPF (0.0-6.0) 12/26/19 11:46 Urine RBC (Auto) 1.0 /HPF (0.0-6.0) 12/26/19 11:46 Urine Mucus Few /HPF 12/26/19 11:46 Assessment and Plan Advance Directives: Yes (Full code) - Patient Problems (1) Atrial fibrillation with RVR Current Visit: Yes Status: Acute Plan to address problem: Heart rate not controlled with Cardizem drip will add digests to a higher milligrams to control the heart rate cardiology consult
[2019-12-26] MEDS ORDERED: ACETAMINOPHEN 325 MG TAB PO PRN (16:34)
[2019-12-26] MEDS ORDERED: oxyCODONE /ACETAMINOPHEN 5-325MG TAB PO PRN (16:42)
[2019-12-26] MEDS ORDERED: HYDROmorphone 1 MG/1 ML INJ IV PRN (16:42)
[2019-12-26] MEDS ORDERED: METOCLOPRAMIDE 10 MG/2 ML INJ IV PRN (16:42)
[2019-12-26] MEDS ORDERED: SODIUM CHLORIDE 0.9% 1000 ML 1,000 ML IV SCH (16:45)
[2019-12-26] MEDS ORDERED: ALPRAZolam 0.25 MG TAB PO PRN (16:46)
[2019-12-26] MEDS ORDERED: amLODIPine 5 MG TAB PO SCH (17:00)
[2019-12-26] MEDS ORDERED: CLOPIDOGREL 75 MG TAB PO SCH (17:00)
[2019-12-26] MEDS: LISINOPRIL 20 MG TAB PO SCH (17:35)
[2019-12-26] MEDS: PARoxetine 10 MG TAB PO SCH (18:36)
[2019-12-26] MEDS: PRAVASTATIN 40 MG TAB PO SCH (21:19)
[2019-12-26] MEDS: ONDANSETRON 4 MG/2 ML INJ IV PRN (21:50)
[2019-12-26] MEDS ORDERED: NON-FORMULARY EACH (Simvastatin (Nf) 20 MG) PO SCH (22:00)
[2019-12-26] MEDS ORDERED: FAMOTIDINE 20 MG/2 ML INJ IV SCH (22:00)
[2019-12-27] MEDS: TEMAZEPAM 15 MG CAP PO SCH ×2 (00:21→22:14)
--- NOTE | 2019-12-27 05:59 | Event Note ---
Date: 12/26/19 See H/p in reports Afib with rvr
[2019-12-27 06:19] LABS: Basophils # (Auto) 0.1 K/mm3 (0.0-0.1); Basophils % (Auto) 1.1 % (0.0-1.8); Eosinophils # (Auto) 0.1 K/mm3 (0.0-0.4); Eosinophils % (Auto) 1.6 % (0.0-4.3); Hematocrit 29.3 % (35.5-45.6); Hemoglobin 9.7 gm/dl (11.8-15.2); Lymphocytes # (Auto) 1.2 K/mm3 (1.2-5.4); Lymphocytes % (Auto) 20.5 % (13.4-35.0); Mean Corpuscular HGB Conc 33 % (32-34); Mean Corpuscular Volume 84 fl (84-94); Monocytes # (Auto) 0.6 K/mm3 (0.0-0.8); Monocytes % (Auto) 9.8 % (0.0-7.3); Platelet Count 165 K/mm3 (140-440); Red Blood Count 3.48 M/mm3 (3.65-5.03); Red Cell Distribution Width 15.1 % (13.2-15.2)
[2019-12-27 06:36] LABS: Alanine Aminotransferase 8 units/L (7-56); Albumin 3.2 g/dL (3.9-5); BUN/Creatinine Ratio 7; Blood Urea Nitrogen 8 mg/dL (9-20); Calcium 9.1 mg/dL (8.4-10.2); Hemolysis Index 6
[2019-12-27] MEDS ORDERED: dilTIAZem CD 120 MG CAP PO SCH (08:00)
--- NOTE | 2019-12-27 08:17 | Progress Note ---
Assessment and Plan Assessment and plan: --Chip. fib with rapid ventricular rate; on Cardizem drip Heart rate well controlled, transition to oral Cardizem Closely monitor, cardiology consulted --Chronic anticoagulation; continue Eliquis --History of hypertension; moderate control Continue current antihypertensives and PRN medications --Upper respiratory symptoms and congestion; Will advise decongestants --Dyslipidemia; continue statin --DVT prophylaxis; patient is on Eliquis --Full CODE STATUS Monitor closely and adjust management as needed If patient's heart rate holds up with oral Cardizem We may transfer the patient to telemetry this afternoon Plan of care reviewed with the patient and his nurse Critical care time 35 minutes History Interval history: Patient seen and examined at the bedside in ICU this morning Patient's chart and other records reviewed Admitted with Chip. josué with rapid ventricular rate on Cardizem drip Patient's heart rate is well controlled Patient denies any chest pain or shortness of breath Complains of some upper respiratory symptoms and sinus congestion Alert awake oriented x3 Vital signs reviewed Hospitalist Physical - Constitutional Vitals: Temp Pulse Resp BP Pulse Ox 98.5 F 69 26 H 104/45 92 12/27/19 08:06 12/27/19 06:15 12/27/19 06:15 12/27/19 06:15 12/27/19 06:15 General appearance: Present: no acute distress, well-nourished - EENT Eyes: Present: PERRL, EOM intact - Neck Neck: Present: supple, normal ROM - Respiratory Respiratory effort: normal Respiratory: bilateral: diminished, negative: rales, rhonchi, wheezing - Cardiovascular Rhythm: regular Heart Sounds: Present: S1 & S2 - Extremities Extremities: no ischemia, No edema - Abdominal General gastrointestinal: soft, non-tender, non-distended, normal bowel sounds - Integumentary Integumentary: Present: clear, warm - Psychiatric Psychiatric: appropriate mood/affect, cooperative - Neurologic Neurologic: CNII-XII intact, moves all extremities Results - Labs CBC & Chem 7: 12/27/19 05:31 12/27/19 05:31 Labs: Laboratory Last Values WBC 6.0 K/mm3 (4.5-11.0) 12/27/19 05:31 RBC 3.48 M/mm3 (3.65-5.03) L 12/27/19 05:31 Hgb 9.7 gm/dl (11.8-15.2) L 12/27/19 05:31 Hct 29.3 % (35.5-45.6) L 12/27/19 05:31 MCV 84 fl (84-94) 12/27/19 05:31 MCH 28 pg (28-32) 12/27/19 05:31 MCHC 33 % (32-34) 12/27/19 05:31 RDW 15.1 % (13.2-15.2) 12/27/19 05:31 Plt Count 165 K/mm3 (140-440) 12/27/19 05:31 Lymph % (Auto) 20.5 % (13.4-35.0) 12/27/19 05:31 [place] % (Auto) 9.8 % (0.0-7.3) H 12/27/19 05:31 Eos % (Auto) 1.6 % (0.0-4.3) 12/27/19 05:31 Baso % (Auto) 1.1 % (0.0-1.8) 12/27/19 05:31 Lymph # 1.2 K/mm3 (1.2-5.4) 12/27/19 05:31 [place] # 0.6 K/mm3 (0.0-0.8) 12/27/19 05:31 Eos # 0.1 K/mm3 (0.0-0.4) 12/27/19 05:31 Baso # 0.1 K/mm3 (0.0-0.1) 12/27/19 05:31 Seg Neutrophils % 67.0 % (40.0-70.0) 12/27/19 05:31 Seg Neutrophils # 4.0 K/mm3 (1.8-7.7) 12/27/19 05:31 PT 14.9 Sec. (12.2-14.9) 12/26/19 12:02 INR 1.15 (0.87-1.13) H 12/26/19 12:02 APTT 34.3 Sec. (24.2-36.6) 12/26/19 12:02 Sodium 139 mmol/L (137-145) 12/27/19 05:31 Potassium 4.0 mmol/L (3.6-5.0) 12/27/19 05:31 Chloride 106.9 mmol/L (98-107) 12/27/19 05:31 Carbon Dioxide 22 mmol/L (22-30) 12/27/19 05:31 Anion Gap 14 mmol/L 12/27/19 05:31 BUN 8 mg/dL (9-20) L 12/27/19 05:31 Creatinine 1.1 mg/dL (0.8-1.5) 12/27/19 05:31 Estimated GFR > 60 ml/min 12/27/19 05:31 BUN/Creatinine Ratio 7 % 12/27/19 05:31 Glucose 106 mg/dL (75-100) H 12/27/19 05:31 Hemoglobin A1c 5.5 % (4-6) 12/27/19 05:31 Calcium 9.1 mg/dL (8.4-10.2) 12/27/19 05:31 Magnesium 1.80 mg/dL (1.7-2.3) 12/26/19 12:02 Total Bilirubin 0.80 mg/dL (0.1-1.2) 12/27/19 05:31 Direct Bilirubin < 0.2 mg/dL (0-0.2) 12/26/19 12:02 Indirect Bilirubin 0.5 mg/dL 12/26/19 12:02 AST 15 units/L (5-40) 12/27/19 05:31 ALT 8 units/L (7-56) 12/27/19 05:31 Alkaline Phosphatase 78 units/L (35-129) 12/27/19 05:31 Troponin T < 0.010 ng/mL (0.00-0.029) 12/26/19 18:29 Total Protein 5.6 g/dL (6.3-8.2) L 12/27/19 05:31 Albumin 3.2 g/dL (3.9-5) L 12/27/19 05:31 Albumin/Globulin Ratio 1.3 % 12/27/19 05:31 Urine Color Yellow (Yellow) 12/26/19 11:46 Urine Turbidity Clear (Clear) 12/26/19 11:46 Urine pH 5.0 (5.0-7.0) 12/26/19 11:46 Ur Specific [place] 1.008 (1.003-1.030) 12/26/19 11:46 Urine Protein <15 mg/dl mg/dL (Negative) 12/26/19 11:46 Urine Glucose (UA) Neg mg/dL (Negative) 12/26/19 11:46 Urine Ketones Neg mg/dL (Negative) 12/26/19 11:46 Urine Blood Neg (Negative) 12/26/19 11:46 Urine Nitrite Neg (Negative) 12/26/19 11:46 Urine Bilirubin Neg (Negative) 12/26/19 11:46 Urine Urobilinogen < 2.0 mg/dL (<2.0) 12/26/19 11:46 Ur Leukocyte Esterase Neg (Negative) 12/26/19 11:46 Urine WBC (Auto) 1.0 /HPF (0.0-6.0) 12/26/19 11:46 Urine RBC (Auto) 1.0 /HPF (0.0-6.0) 12/26/19 11:46 Urine Mucus Few /HPF 12/26/19 11:46 Active Medications - Current Medications Current Medications: Generic Name Dose Route Start Last Admin Trade Name Freq PRN Reason Stop Dose Admin Acetaminophen 650 mg 12/26/19 16:34 Tylenol PO Q4H PRN Pain MILD(1-3)/Fever >100.5/LOYA Alprazolam 0.25 mg 12/26/19 16:46 12/26/19 17:33 Xanax PO 0.25 mg BID PRN Administration Anxiety Apixaban 5 mg 12/27/19 10:00 Eliquis PO Q12HR MIAN Protocol Diltiazem HCl 120 mg 12/27/19 08:00 Cardizem Cd PO QDAY MIAN Famotidine 20 mg 12/26/19 22:00 12/26/19 21:19 Pepcid IV 20 mg BID MIAN Administration Hydromorphone HCl 0.5 mg 12/26/19 16:42 Dilaudid IV Q3H PRN Pain , Severe (7-10) Diltiazem HCl 100 mg in 100 mls @ 5 mls/hr 12/26/19 12:00 12/26/19 23:19 Cardizem/D5w 100mg/100ml IV 2.5 mg/hr TITR MIAN 2.5 mls/hr Titration Protocol 5 MG/HR Sodium Chloride 1,000 mls @ 75 mls/hr 12/26/19 16:45 12/26/19 17:33 Nacl 0.9% 1000 Ml IV 75 mls/hr DIRECT MIAN Administration Lisinopril 20 mg 12/26/19 17:00 12/26/19 17:35 Zestril PO Not Given QDAY MIAN Metoclopramide HCl 10 mg 12/26/19 16:42 Reglan IV Q6H PRN Nausea And Vomiting Ondansetron HCl 4 mg 12/26/19 16:34 12/26/19 21:50 Zofran IV 4 mg Q8H PRN Administration Nausea And Vomiting Oxycodone/Acetaminophen 1 tab 12/26/19 16:42 Percocet 5/325 PO Q6H PRN Pain, Moderate (4-6) Paroxetine HCl 20 mg 12/26/19 17:00 12/26/19 18:36 Paxil PO 20 mg DAILY MIAN Administration Pravastatin Sodium 40 mg 12/26/19 22:00 12/26/19 21:19 Pravachol PO 40 mg QHS MIAN Administration Sodium Chloride 10 ml 12/26/19 22:00 12/26/19 21:30 Sodium Chloride Flush Syringe 10 Ml IV 10 ml BID MIAN Administration Sodium Chloride 10 ml 12/26/19 16:34 Sodium Chloride Flush Syringe 10 Ml IV PRN PRN LINE FLUSH Temazepam 15 mg 12/27/19 00:10 12/27/19 00:21 Restoril PO 15 mg QHS MIAN Administration
--- NOTE | 2019-12-27 08:27 | History and Physical Report ---
CHIEF COMPLAINT: Palpitations since morning. HISTORY OF PRESENT ILLNESS: A 64-year-old man with history of hypertension, paroxysmal atrial fibrillation and cerebrovascular accident experienced severe palpitations and shortness of breath this morning. The patient ____ when this happened. The patient was brought in by EMS. The patient's heart rate was in the 150s and he was in atrial fibrillation with RVR on the EKG with the EMS services. The patient was given Cardizem 10 and was started on Cardizem drip with some improvement, but not adequate. No chest pain. Not on any anticoagulation. No recent travel. PAST MEDICAL HISTORY: As mentioned; atrial fibrillation, hypertension, coronary artery disease, generalized anxiety disorder, nicotine dependence, hyperlipidemia and hypertension. PAST SURGICAL HISTORY: None. SOCIAL HISTORY: Former smoker. FAMILY HISTORY: Hypertension. CURRENT MEDICATIONS: On chart. REVIEW OF SYSTEMS: Significant for severe palpitations and shortness of breath, but no chest pain. Otherwise, review of systems is negative. Fourteen-point review of systems done. PHYSICAL EXAMINATION: GENERAL: Elderly male in slight distress. VITAL SIGNS: Heart rate was in the 150s, irregular. Blood pressure 121/48, temperature 98, respirations are 20. HEENT: Unremarkable. Pupils equal and reactive. NECK: Supple. No lymphadenopathy, no thyromegaly. LUNGS: Clear to auscultation and percussion. Good air entry. CARDIOVASCULAR: S1, S2 heard. No gallop, no murmur, no rub. Apical impulse in the left fifth intercostal space and midclavicular line. Irregular, fast heart rate. ABDOMEN: Soft and benign. No hepatosplenomegaly. No guarding, no rigidity. Hernial orifices are normal. EXTREMITIES: Good pedal pulses. No pedal edema. CENTRAL NERVOUS SYSTEM: Alert and oriented x 4, nonfocal exam. IMAGING STUDIES: No imaging studies. EKG shows atrial fibrillation with RVR, heart rate of 150 per minute. LABORATORY DATA: Significant for normal CBC, slightly low H and H of 11.1 and 34.3, INR of 1.15. Electrolytes are normal. Urine normal. ASSESSMENT AND PLAN: 1. Atrial fibrillation with rapid ventricular response, could not be controlled with Cardizem 5. Cardizem has to be titrated upwards. Because of the titration, the patient is being admitted to ICU. Cardizem CD also initiated. 2. Hypertension. Stop the amlodipine and initiate Cardizem CD for its antiarrhythmic properties. 3. Coronary artery disease. Continue Plavix 75 mg once a day. 4. Depression. Continue paroxetine. 5. Hyperlipidemia. Continue simvastatin. 6. Generalized anxiety disorder. Continue Xanax 0.25 b.i.d. 7. Deep venous thrombosis prophylaxis. Heparin 5000 q. 12. The patient is a candidate for Eliquis. Eliquis was also initiated. Cardiology consult on board. CRITICAL CARE TIME: 35 minutes. JOB# [id number] VSM/NTS SARAY
[2019-12-27] MEDS: FAMOTIDINE 20 MG TAB PO SCH ×2 (09:11→22:12)
[2019-12-27] MEDS: LISINOPRIL 20 MG TAB PO SCH (09:11)
[2019-12-27] MEDS: PARoxetine 10 MG TAB PO SCH (09:12)
[2019-12-27] MEDS: APIXABAN 5 MG TAB PO SCH ×2 (09:12→22:12)
[2019-12-27] MEDS ORDERED: LORATADINE/PSEUDOEPHEDRINE 10-240 MG TAB 24HR PO SCH (10:00)
--- NOTE | 2019-12-27 10:15 | Consultation ---
History of Present Illness - Reason for Consult Consult date: 12/27/19 Afib with RVR Requesting physician: VINCENZO MATUTE - History of Present Illness 64 y/o male admitted with afib with RVR. No chest pain. Had some shortness of breath. Former smoker of 30 years who quit 3 years ago. Remainder is negative. Past History Past Medical History: hypertension, hyperlipidemia Social history: smoking (quit 3 years ago) Family history: no significant family history Medications and Allergies Allergies Allergy/AdvReac Type Severity Reaction Status Date / Time Penicillins Allergy Severe Anaphylaxis Verified 05/05/17 08:53 Home Medications Medication Instructions Recorded Confirmed Last Taken Type Clopidogrel [Plavix] 75 mg PO QDAY #30 tablet 04/17/17 12/26/19 Unknown Rx Simvastatin (Nf) [Zocor TAB] 20 mg PO QHS #30 tablet 04/17/17 12/26/19 Unknown Rx amLODIPine 5 mg PO QDAY #30 tablet 04/17/17 12/26/19 Unknown Rx lisinopriL [Zestril TAB] 20 mg PO QDAY #30 tablet 04/17/17 12/26/19 Unknown Rx ALPRAZolam [Xanax TAB] 0.25 mg PO BID PRN 12/26/19 12/26/19 Unknown History PARoxetine [Paxil] 20 mg PO DAILY 12/26/19 12/26/19 Unknown History Temazepam 15 mg PO QHS 12/26/19 12/26/19 Unknown History Active Meds: Active Medications Acetaminophen (Tylenol) 650 mg PO Q4H PRN PRN Reason: Pain MILD(1-3)/Fever >100.5/LOYA Alprazolam (Xanax) 0.25 mg PO BID PRN PRN Reason: Anxiety Last Admin: 12/26/19 17:33 Dose: 0.25 mg Documented by: Apixaban (Eliquis) 5 mg PO Q12HR [facility]; Protocol Last Admin: 12/27/19 09:12 Dose: 5 mg Documented by: Diltiazem HCl (Cardizem Cd) 120 mg PO QDAY [facility] Last Admin: 12/27/19 08:26 Dose: 120 mg Documented by: Famotidine (Pepcid) 20 mg PO BID [facility] Last Admin: 12/27/19 09:11 Dose: 20 mg Documented by: Hydromorphone HCl (Dilaudid) 0.5 mg IV Q3H PRN PRN Reason: Pain , Severe (7-10) Diltiazem HCl (Cardizem/D5w 100mg/100ml) 100 mg in 100 mls @ 5 mls/hr IV TITR [facility]; Protocol Last Titration: 12/27/19 08:58 Dose: 0 mg/hr, 0 mls/hr Documented by: Lisinopril (Zestril) 20 mg PO QDAY [facility] Last Admin: 12/27/19 09:11 Dose: 20 mg Documented by: Loratadine/Pseudoephedrine Sulfate (Claritin-D 24hr) 1 each PO Q24HR [facility] Metoclopramide HCl (Reglan) 10 mg IV Q6H PRN PRN Reason: Nausea And Vomiting Ondansetron HCl (Zofran) 4 mg IV Q8H PRN PRN Reason: Nausea And Vomiting Last Admin: 12/26/19 21:50 Dose: 4 mg Documented by: Oxycodone/Acetaminophen (Percocet 5/325) 1 tab PO Q6H PRN PRN Reason: Pain, Moderate (4-6) Paroxetine HCl (Paxil) 20 mg PO DAILY [facility] Last Admin: 12/27/19 09:12 Dose: 20 mg Documented by: Pravastatin Sodium (Pravachol) 40 mg PO QHS [facility] Last Admin: 12/26/19 21:19 Dose: 40 mg Documented by: Sodium Chloride (Sodium Chloride Flush Syringe 10 Ml) 10 ml IV BID [facility] Last Admin: 12/27/19 09:13 Dose: 10 ml Documented by: Sodium Chloride (Sodium Chloride Flush Syringe 10 Ml) 10 ml IV PRN PRN PRN Reason: LINE FLUSH Temazepam (Restoril) 15 mg PO QHS [facility] Last Admin: 12/27/19 00:21 Dose: 15 mg Documented by: Review of Systems All systems: negative Exam - Constitutional Vitals: Temp Pulse Resp BP Pulse Ox 98.5 F 81 14 127/46 90 12/27/19 08:06 12/27/19 10:00 12/27/19 10:00 12/27/19 10:00 12/27/19 10:00 General appearance: Present: no acute distress, well-nourished - EENT Eyes: Present: PERRL, EOM intact ENT: hearing intact, clear oral mucosa - Neck Neck: Present: supple, normal ROM - Respiratory Respiratory effort: normal Respiratory: bilateral: diminished - Cardiovascular Rhythm: regular Heart Sounds: Present: S1 & S2 - Extremities Extremities: no ischemia, pulses intact - Abdominal General gastrointestinal: Present: soft, non-tender - Rectal Rectal Exam: deferred - Psychiatric Psychiatric: appropriate mood/affect - Neurologic Neurologic: CNII-XII intact Results - Labs CBC & Chem 7: 12/27/19 05:31 12/27/19 05:31 Labs: Abnormal lab results 12/26/19 12/26/19 12/26/19 Range/Units 12:02 12:02 12:02 RBC (3.65-5.03) M/mm3 Hgb 11.1 L (11.8-15.2) gm/dl Hct 34.3 L (35.5-45.6) % [place] % (Auto) 8.0 H (0.0-7.3) % Lymph # 0.7 L (1.2-5.4) K/mm3 Seg Neutrophils % 72.8 H (40.0-70.0) % INR 1.15 H (0.87-1.13) BUN 8 L (9-20) mg/dL Glucose (75-100) mg/dL Total Protein (6.3-8.2) g/dL Albumin (3.9-5) g/dL 12/27/19 12/27/19 Range/Units 05:31 05:31 RBC 3.48 L (3.65-5.03) M/mm3 Hgb 9.7 L (11.8-15.2) gm/dl Hct 29.3 L (35.5-45.6) % [place] % (Auto) 9.8 H (0.0-7.3) % Lymph # (1.2-5.4) K/mm3 Seg Neutrophils % (40.0-70.0) % INR (0.87-1.13) BUN 8 L (9-20) mg/dL Glucose 106 H (75-100) mg/dL Total Protein 5.6 L (6.3-8.2) g/dL Albumin 3.2 L (3.9-5) g/dL Assessment and Plan 64 y/o with afib with RVR and hypoxemia. CXR now Rate controlled now. On oral therapy now Stable for transfer to tele floor.
--- NOTE | 2019-12-27 13:33 | XRay Report ---
CHEST 1 VIEW INDICATION / CLINICAL INFORMATION: Hypoxemia. COMPARISON: 04/30/2017 FINDINGS: SUPPORT DEVICES: None. HEART / MEDIASTINUM: No significant abnormality. LUNGS / PLEURA: There is bilateral interstitial disease. This is relatively symmetric and basilar pre dominant. There are small bilateral pleural effusions left greater than right. No pneumothorax. ADDITIONAL FINDINGS: No significant additional findings. IMPRESSION: 1. There is bilateral interstitial disease throughout symmetric likely representing pulmonary edema. There are small bilateral pleural effusions. Signer Name: Oliver Hernandes MD Signed: 12/27/2019 1:28 PM Workstation Name: [id number]
--- NOTE | 2019-12-27 14:49 | Consultation ---
<LUDA ALTMAN - Last Filed: 12/27/19 15:04> History of Present Illness Consult date: 12/27/19 Requesting physician: VINCENZO MATUTE Consult reason: atrial fibrillation History of present illness: The pt is a 64 YO male with a past medical history of HTN, CVA 3 years ago, former tobacco use. He is followed in our office by Dr. Cruz. He presented to ED from [facility] yesterday for evaluation of palpitations. Pt noted the onset of palpitations and SOB while he was sitting in [facility]. Following arrival to ED, he was noted to be in AFib with RVR, 150s. He was given IV cardizem bolus and initiated on cardizem gtt and has since converted to NSR. On evaluation, he remains in NSR, currently weaned off cardizem gtt. He has no current complaints. Pt denies any known prior history of CAD, AMI, HF or arrhythmia. Echo done 02/2016 showed EF 55-60%, mild to mod MR, mild to mod AR. Stress MPI done 12/2014 was negative. Past History Past Medical History: hypertension, other (as per HPI) Social history: smoking (quit 3 years ago) Family history: no significant family history Medications and Allergies Allergies Allergy/AdvReac Type Severity Reaction Status Date / Time Penicillins Allergy Severe Anaphylaxis Verified 05/05/17 08:53 Home Medications Medication Instructions Recorded Confirmed Last Taken Type Clopidogrel [Plavix] 75 mg PO QDAY #30 tablet 04/17/17 12/26/19 Unknown Rx Simvastatin (Nf) [Zocor TAB] 20 mg PO QHS #30 tablet 04/17/17 12/26/19 Unknown Rx amLODIPine 5 mg PO QDAY #30 tablet 04/17/17 12/26/19 Unknown Rx lisinopriL [Zestril TAB] 20 mg PO QDAY #30 tablet 04/17/17 12/26/19 Unknown Rx ALPRAZolam [Xanax TAB] 0.25 mg PO BID PRN 12/26/19 12/26/19 Unknown History PARoxetine [Paxil] 20 mg PO DAILY 12/26/19 12/26/19 Unknown History Temazepam 15 mg PO QHS 12/26/19 12/26/19 Unknown History Active Meds: Active Medications Acetaminophen (Tylenol) 650 mg PO Q4H PRN PRN Reason: Pain MILD(1-3)/Fever >100.5/LOYA Alprazolam (Xanax) 0.25 mg PO BID PRN PRN Reason: Anxiety Last Admin: 12/26/19 17:33 Dose: 0.25 mg Documented by: Apixaban (Eliquis) 5 mg PO Q12HR [facility]; Protocol Last Admin: 12/27/19 09:12 Dose: 5 mg Documented by: Diltiazem HCl (Cardizem Cd) 120 mg PO QDAY [facility] Last Admin: 12/27/19 08:26 Dose: 120 mg Documented by: Famotidine (Pepcid) 20 mg PO BID [facility] Last Admin: 12/27/19 09:11 Dose: 20 mg Documented by: Hydromorphone HCl (Dilaudid) 0.5 mg IV Q3H PRN PRN Reason: Pain , Severe (7-10) Diltiazem HCl (Cardizem/D5w 100mg/100ml) 100 mg in 100 mls @ 5 mls/hr IV TITR [facility]; Protocol Last Titration: 12/27/19 08:58 Dose: 0 mg/hr, 0 mls/hr Documented by: Lisinopril (Zestril) 20 mg PO QDAY [facility] Last Admin: 12/27/19 09:11 Dose: 20 mg Documented by: Loratadine/Pseudoephedrine Sulfate (Claritin-D 24hr) 1 each PO Q24HR [facility] Metoclopramide HCl (Reglan) 10 mg IV Q6H PRN PRN Reason: Nausea And Vomiting Ondansetron HCl (Zofran) 4 mg IV Q8H PRN PRN Reason: Nausea And Vomiting Last Admin: 12/26/19 21:50 Dose: 4 mg Documented by: Oxycodone/Acetaminophen (Percocet 5/325) 1 tab PO Q6H PRN PRN Reason: Pain, Moderate (4-6) Paroxetine HCl (Paxil) 20 mg PO DAILY [facility] Last Admin: 12/27/19 09:12 Dose: 20 mg Documented by: Pravastatin Sodium (Pravachol) 40 mg PO QHS [facility] Last Admin: 12/26/19 21:19 Dose: 40 mg Documented by: Sodium Chloride (Sodium Chloride Flush Syringe 10 Ml) 10 ml IV BID [facility] Last Admin: 12/27/19 09:13 Dose: 10 ml Documented by: Sodium Chloride (Sodium Chloride Flush Syringe 10 Ml) 10 ml IV PRN PRN PRN Reason: LINE FLUSH Temazepam (Restoril) 15 mg PO QHS [facility] Last Admin: 12/27/19 00:21 Dose: 15 mg Documented by: Review of Systems Constitutional: no weight loss, no weight gain, no fever, no chills, no sweats Ears, nose, mouth and throat: no ear pain, no nose pain, no sinus pressure, no sinus pain Cardiovascular: palpitations, rapid/irregular heart beat, shortness of breath, no chest pain, no orthopnea, no edema, no syncope, no lightheadedness, no leg edema Respiratory: shortness of breath, no cough, no congestion, no pain on inspiration Gastrointestinal: no abdominal pain, no nausea, no vomiting, no diarrhea, no constipation, no change in bowel habits Genitourinary Male: no dysuria, no hematuria, no flank pain, no discharge, no urinary frequency, no urinary hesitancy Musculoskeletal: no neck stiffness, no neck pain, no shooting arm pain, no arm numbness/tingling, no low back pain, no shooting leg pain Integumentary: no rash, no pruritis, no redness, no sores, no wounds Neurological: no head injury, no paralysis, no weakness, no parathesias, no numbness, no tingling, no seizures, no syncope Psychiatric: no anxiety Endocrine: no cold intolerance, no heat intolerance Hematologic/Lymphatic: no easy bruising, no easy bleeding Allergic/Immunologic: no urticaria Physical Examination Vital Signs Pulse Ox 93 12/26/19 11:38 General appearance: no acute distress HEENT: Positive: PERRL, Normocephaly, Mucus Membranes Moist Neck: Positive: neck supple, trachea midline Cardiac: Positive: Reg Rate and Rhythm, S1/S2 Lungs: Positive: Decreased Breath Sounds, Oxygen Neuro: Positive: Grossly Intact Abdomen: Negative: Tender Skin: Negative: Rash Musculoskeletal: No Pain Extremities: Absent: edema Results 12/27/19 05:31 12/27/19 05:31 Cardiac Enzymes 12/27/19 Range/Units 05:31 AST 15 (5-40) units/L CBC 12/27/19 Range/Units 05:31 WBC 6.0 (4.5-11.0) K/mm3 RBC 3.48 L (3.65-5.03) M/mm3 Hgb 9.7 L (11.8-15.2) gm/dl Hct 29.3 L (35.5-45.6) % Plt Count 165 (140-440) K/mm3 Lymph # 1.2 (1.2-5.4) K/mm3 Trimble # 0.6 (0.0-0.8) K/mm3 Eos # 0.1 (0.0-0.4) K/mm3 Baso # 0.1 (0.0-0.1) K/mm3 Comprehensive Metabolic Panel 12/27/19 Range/Units 05:31 Sodium 139 (137-145) mmol/L Potassium 4.0 (3.6-5.0) mmol/L Chloride 106.9 (98-107) mmol/L Carbon Dioxide 22 (22-30) mmol/L BUN 8 L (9-20) mg/dL Creatinine 1.1 (0.8-1.5) mg/dL Glucose 106 H (75-100) mg/dL Calcium 9.1 (8.4-10.2) mg/dL AST 15 (5-40) units/L ALT 8 (7-56) units/L Alkaline Phosphatase 78 (35-129) units/L Total Protein 5.6 L (6.3-8.2) g/dL Albumin 3.2 L (3.9-5) g/dL - Imaging and Cardiology Echo: report reviewed (02/2016 showed EF 55-60%, mild to mod MR, mild to mod AR. ) EKG: report reviewed, image reviewed EKG interpretations - Telemetry EKG Rhythm: Sinus Rhythm - EKG Supraventricular dysrhythmia: atrial fibrillation Assessment and Plan Agree with present cardiac regimen, including Eliquis and Cardizem CD. Obtain echo and thyroid profile. Plan for lexiscan MPI stress test in AM. NPO after MN. The patient has been seen in conjunction with Dr. Mariana Faust who agrees with the assessment and plan of care. - Patient Problems (1) Atrial fibrillation with RVR Status: Acute (2) HTN (hypertension) Status: Chronic Qualifiers: Hypertension type: essential hypertension Qualified Code(s): I10 - Essential (primary) hypertension (3) History of CVA (cerebrovascular accident) Status: Chronic (4) Tobacco abuse Status: Chronic Plan to address problem: former <MIHIR FAUST - Last Filed: 12/29/19 09:57> Physical Examination Vital Signs Pulse Ox 93 12/26/19 11:38 Results 12/27/19 05:31 12/27/19 05:31 Assessment and Plan Pt presented w/ CP and palp. Found to have afib, converted overnight medically. Given cp, h/o tobacco use, and myriad risk factors, pt is scheduled for stress MPI.
[2019-12-27] MEDS: ONDANSETRON 4 MG/2 ML INJ IV PRN (19:50)
[2019-12-27] MEDS: PRAVASTATIN 40 MG TAB PO SCH (22:12)
[2019-12-28] MEDS ORDERED: LIDOCAINE VISCOUS 2% 15 ML ORAL LIQD ONE (00:24)
[2019-12-28] MEDS ORDERED: REGADENOSON 0.4 MG/5 ML INJ IV ONE ×2 (07:22→07:23)
[2019-12-28] MEDS ORDERED: LORATADINE/PSEUDOEPHEDRINE 10-240 MG TAB 24HR PO PRN (08:00)
--- NOTE | 2019-12-28 08:15 | Progress Note ---
Assessment and Plan 64 y/o with afib with RVR and hypoxemia. Follow up stress test Pending oxygen requirement, may be reasonable for a one time dose of lasix. I/O if accurate suggest positive fluid balance Wean FiO2 to off as tolerated for sats >88% Will sign off for now. Call if questions. Subjective Date of service: 12/28/19 Interval history: Successful transfer out of unit. Stable. CXR done shows is most likely pulmonary edema. Did have some faint rales on exam yesterday. Going for stress test this am. Did not appear volume overloaded on physical exam yesterday. Objective - Constitutional Vitals: Vital Signs - 12hr 12/27/19 22:00 Pulse Rate 77 Pulse Rate [ 77 From Monitor] Respiratory 18 Rate - Labs CBC & Chem 7: 12/27/19 05:31 12/27/19 05:31 Labs: Abnormal lab results 12/27/19 12/27/19 12/27/19 Range/Units 12:05 16:24 16:24 D-Dimer (0-234) ng/mlDDU POC Glucose 117 H (70-105) TSH 0.026 L (0.270-4.200) mlU/mL Free T4 2.55 H (0.76-1.46) ng/dL 12/27/19 Range/Units 16:24 D-Dimer 410.07 H (0-234) ng/mlDDU POC Glucose (70-105) TSH (0.270-4.200) mlU/mL Free T4 (0.76-1.46) ng/dL Medications & Allergies - Medications Allergies/Adverse Reactions: Allergies Penicillins Allergy (Severe, Verified 05/05/17 08:53) Anaphylaxis Home Medications: Home Medications Medication Instructions Recorded Confirmed Last Taken Type Clopidogrel [Plavix] 75 mg PO QDAY #30 tablet 04/17/17 12/26/19 Unknown Rx Simvastatin (Nf) [Zocor TAB] 20 mg PO QHS #30 tablet 04/17/17 12/26/19 Unknown Rx amLODIPine 5 mg PO QDAY #30 tablet 04/17/17 12/26/19 Unknown Rx lisinopriL [Zestril TAB] 20 mg PO QDAY #30 tablet 04/17/17 12/26/19 Unknown Rx ALPRAZolam [Xanax TAB] 0.25 mg PO BID PRN 12/26/19 12/26/19 Unknown History PARoxetine [Paxil] 20 mg PO DAILY 12/26/19 12/26/19 Unknown History Temazepam 15 mg PO QHS 12/26/19 12/26/19 Unknown History Active Medications: Generic Name Dose Route Start Last Admin Trade Name Freq PRN Reason Stop Dose Admin Acetaminophen 650 mg 12/26/19 16:34 Tylenol PO Q4H PRN Pain MILD(1-3)/Fever >100.5/LOYA Alprazolam 0.25 mg 12/26/19 16:46 12/26/19 17:33 Xanax PO 0.25 mg BID PRN Administration Anxiety Apixaban 5 mg 12/27/19 10:00 12/27/19 22:12 Eliquis PO 5 mg Q12HR MIAN Administration Protocol Diltiazem HCl 120 mg 12/27/19 08:00 12/27/19 08:26 Cardizem Cd PO 120 mg QDAY MIAN Administration Famotidine 20 mg 12/27/19 10:00 12/27/19 22:12 Pepcid PO 20 mg BID MIAN Administration Lisinopril 20 mg 12/26/19 17:00 12/27/19 09:11 Zestril PO 20 mg QDAY MIAN Administration Loratadine/Pseudoephedrine Sulfate 1 each 12/28/19 08:00 Claritin-D 24hr PO Q24HR PRN [facility] Ondansetron HCl 4 mg 12/26/19 16:34 12/27/19 19:50 Zofran IV 4 mg Q8H PRN Administration Nausea And Vomiting Paroxetine HCl 20 mg 12/26/19 17:00 12/27/19 09:12 Paxil PO 20 mg DAILY MIAN Administration Pravastatin Sodium 40 mg 12/26/19 22:00 12/27/19 22:12 Pravachol PO 40 mg QHS MIAN Administration Sodium Chloride 10 ml 12/26/19 22:00 12/27/19 22:14 Sodium Chloride Flush Syringe 10 Ml IV 10 ml BID MIAN Administration Sodium Chloride 10 ml 12/26/19 16:34 Sodium Chloride Flush Syringe 10 Ml IV PRN PRN LINE FLUSH Temazepam 15 mg 12/27/19 00:10 12/27/19 22:14 Restoril PO 15 mg QHS MIAN Administration
[2019-12-28] MEDS ORDERED: ONDANSETRON 4 MG/2 ML INJ ONE (09:13)
[2019-12-28] MEDS: ONDANSETRON 4 MG/2 ML INJ IV PRN (09:17)
[2019-12-28] MEDS ORDERED: SODIUM CHLORIDE 0.9% 500 ML 0 ML ONE (09:20)
[2019-12-28] MEDS ORDERED: SODIUM CHLORIDE 0.9% 500 ML 500 ML IV ONE (09:20)
[2019-12-28] MEDS ORDERED: ATROPINE 0.1% (1 MG/10 ML) CARDIAC SYRINGE ONE ×2 (09:28→09:35)
[2019-12-28] MEDS ORDERED: ATROPINE 1 MG/ML VIAL IV ONE (09:29)
[2019-12-28] MEDS ORDERED: SODIUM CHLORIDE 0.9% 500 ML 500 ML ONE (09:32)
[2019-12-28] MEDS ORDERED: EPINEPHrine 30 MG/30 ML INJ IV ONE (09:35)
[2019-12-28] MEDS ORDERED: EPINEPHrine 1:10,000 1 MG/10 ML SYRINGE ONE (09:35)
[2019-12-28] MEDS ORDERED: HEPARIN/NS 5000 UNIT/500ML 1,000 ML IR ONE (09:54)
[2019-12-28] MEDS ORDERED: NITROGLYCERIN SYRINGE 0 ML ONE (09:54)
[2019-12-28] MEDS ORDERED: HEPARIN 10,000 UNITS/10 ML VIAL ONE (09:54)
[2019-12-28] MEDS ORDERED: LIDOCAINE (2%) 20 MG/1 ML VIAL 20 ML MDV INFILTRATI ONE (09:54)
[2019-12-28] MEDS ORDERED: SODIUM CHLORIDE 0.9% 1000 ML 1,000 ML ONE (10:00)
[2019-12-28] MEDS ORDERED: DOPamine/D5W 800 MG/250 ML 800 MG/250 ML BAG IV ONE (10:04)
[2019-12-28] MEDS ORDERED: EPINEPHrine/PF (1:1,000) 1 MG/1 ML INJ IV ONE (10:05)
[2019-12-28] MEDS ORDERED: fentaNYL 100 MCG/2 ML INJ IV PRN (10:15)
[2019-12-28] MEDS ORDERED: MIDAZOLAM 2 MG/2 ML INJ IV PRN (10:15)
[2019-12-28] MEDS ORDERED: SODIUM CHLORIDE 0.9% 250ML 250 ML ONE (10:18)
[2019-12-28] MEDS ORDERED: MIDAZOLAM 100 MG in SODIUM CHLORIDE 0.9% 80 ML IV SCH (11:00)
[2019-12-28] MEDS ORDERED: ATROPINE 0.1% (1 MG/10 ML) CARDIAC SYRINGE IV ONE (11:00)
[2019-12-28] MEDS ORDERED: fentaNYL DRIP Premix 2,000 MCG/100 ML BAG IV SCH (11:00)
--- NOTE | 2019-12-28 11:44 | Event Note ---
Date: 12/28/19
[2019-12-28 11:58] VITALS: BP 165/60
--- NOTE | 2019-12-28 12:51 | Progress Note ---
Assessment and Plan Pt brought down for echocardiogram and stress test in stable condition with no complaints, no acute events overnight, in NSR. He underwent lexiscan MPI stress test. Shortly after lexiscan administration, pt developed nausea, vomiting and hypotension, in SR. He had no complaints of chest pain. He quickly deteriorated, developed agonal respirations, and PEA. Code BLUE initiated - see code sheet. Pt's called and en route to hospital. Pt intubated and ROSC achieved, pt taken to home performance laborer for emergent LHC. He underwent LHC with PCI - see dictated cath report. However, he suffered another cardiac arrest and Code BLUE initiated - see code sheet. Pt ultimately . Pt's and her sister present in cardiology conference room - notified of events and pt's expiration, all questions and concerns addressed. The patient has been seen in conjunction with Dr. Mariana Driver who agrees with the assessment and plan of care. - Patient Problems (1) Atrial fibrillation with RVR Current Visit: Yes Status: Acute (2) HTN (hypertension) Current Visit: Yes Status: Chronic Qualifiers: Hypertension type: essential hypertension Qualified Code(s): I10 - Essential (primary) hypertension (3) History of CVA (cerebrovascular accident) Current Visit: Yes Status: Chronic (4) Tobacco abuse Current Visit: Yes Status: Chronic Subjective Date of service: 12/28/19 Principal diagnosis: AFib Interval history: pt seen in stress lab prior to stress test, A&O, no complaints prior to stress test. No acute events overnight. tele reviewed - in SR overnight. Objective Last Vital Signs Temp 98.5 F 12/28/19 04:50 Pulse 80 12/28/19 04:50 Resp 18 12/28/19 04:50 BP 165/60 12/28/19 09:50 Pulse Ox 90 12/28/19 04:50 - Physical Examination General: No Apparent Distress HEENT: Positive: PERRL, Normocephaly, Mucus Membranes Moist Neck: Positive: neck supple, trachea midline Cardiac: Positive: Reg Rate and Rhythm, S1/S2 Lungs: Positive: Decreased Breath Sounds Neuro: Positive: Grossly Intact Abdomen: Negative: Tender Skin: Negative: Rash Musculoskeletal: No Pain Extremities: Absent: edema - Imaging and Cardiology EKG: report reviewed, image reviewed Echo: report reviewed (11/2019: EF 50-55%, LA severely dilated, mod MR and AR, mod pulm RVSP 57mmHg. HTN/2015 showed EF 55-60%, mild to mod MR, mild to mod AR. )
--- NOTE | 2019-12-28 13:08 | Event Note ---
Date: 12/28/19 SHARAN SIMEON initially called at 9:33 AM and on arrival to the stress test suite chest compressions were in progress with the patient receiving IV medications for his cardiac event. Patient was initiated by me with 3 oh Mac blade, 7.5 ET tube, at 22 cm at the lip, CO2 detector positive for placement. Please see the CODE BLUE sheet for further details. At 10:31 AM a second SHARAN SIMEON was called on the patient while he was in the Exhibit Preparator which I responded to. Please see CODE BLUE sheet.
--- NOTE | 2019-12-28 13:14 | Cardiac Catherization Report ---
REFERRING PHYSICIAN: Cyrus Driver MD INDICATION FOR PROCEDURE: The patient is a 64-year-old gentleman who underwent a stress test this morning and developed hypotension and bradycardic arrest, referred for emergent heart catheterization. DESCRIPTION OF PROCEDURE: The patient brought to the laborer operator emergently from the stress lab, intubated, hypotensive, on pressors. Code team was present throughout including ER physician. The patient was prepped and draped in sterile fashion. 8 mL of 2% lidocaine anesthetized the right groin. A standard 6-Greenlandic sheath placed in the right common femoral artery and the right femoral vein. Angiography was performed of the left system under fluoroscopic guidance. Fentanyl and Versed were given. After angiographic findings heparin was given. DATA: Aortic pressure is 90/60 initially. We did enter the left ventricular chamber. EDP was some 30. Due to significant ectopy I removed the catheter from the left ventricular chamber and did not perform an LV gram. The patient had an echocardiogram earlier this morning, which revealed normal LV function, mild to moderate MR and mild to moderate AI, normal RV chamber in size. No pericardial effusion. It should be noted that the pt started to rapidly deteriorate at onset of the procedure with recalcitrant hypotension. Code/ER/resp therapist teams present throughout case. CORONARY ANATOMY: This is a right dominant system. Left main appears calcified distally. There is eccentric distal left main and proximal LAD lesion in the LAD with a MAO 2 flow, calcified severe lesion which is long and complex. This is likely the culprit lesion. The circumflex without significant disease. The right coronary is small, appears to be spasm down given the arrest. There is a 40-50% stenosis proximally. There is MAO 3 flow throughout. I do not believe this is the acute or culprit lesion, albeit it may be significant. At this point, I turned my attention to PCI of the LAD. Again heparin is given. The patient reloaded with aspirin. EBU guide used to engage the left main without difficulty. A [place] wire used to cross the lesion. We used a 2.5, 12 balloon to predilate the lesion. Next, we used a 2.5 x 30 Mcbrides drug-eluting stent deployed at 12 MINI for 25 seconds. Excellent result angiographically. The patient continued to have worsening bradycardia and hypotension. At this point, I placed a balloon tipped temporary venous pacemaker through the right femoral venous access under fluoroscopic guidance. Pacemaker functioning. Backup rate set at 100. IV fluid has been wide open since post stress. Despite our maximal efforts the patient developed again arrested. Pt developed VF at one point. The patient was shocked accordingly via ACLS protocol. Multiple rounds of epi and atropine were given for PEA. We spent greater than an hour coding this gentleman. Eventually we pronounced his . I spent a significant amount of time talking to his and his [id number]. All questions and concerns were addressed. JOB# [id number] NIKHIL/CELIA SO
--- NOTE | 2019-12-28 18:19 | Death Summary ---
Summary - Providers Date of service: 12/28/19 Consults: 12/27/19 06:40 Consult to Physician [CONS] Routine Comment: Consulting Provider: ANSON BEAVERS Physician Instructions: Reason For Exam: Afib with rvr Attending: DEX KNIGHT - summary Date of admission: 12/26/19 12:56 Date of : 12/28/19
--- NOTE | 2019-12-28 18:31 | Treadmill Report ---
REFERRING PHYSICIAN: Dr. Angulo. INDICATION FOR PROCEDURE: The patient is a pleasant 64-year-old gentleman with multiple risk factors, presents with chest pain with typical features, found to have atrial fibrillation, was seen in the ICU yesterday and converted to sinus rhythm, is on low dose Eliquis and due to history of chest pain and multiple risk factors scheduled for a nuclear stress test. Risks, benefits, alternatives discussed at length prior to obtaining informed consent. PROCEDURE IN DETAIL: The patient was brought to the stress lab in a postabsorptive state, was given 10 mCi of technetium 99m at rest. The patient underwent rest imaging. The patient underwent Lexiscan stress test per standard protocol. It should be noted that post-stress, the patient developed hypotension. The patient was started on IV fluid. EKG reveals sinus rhythm, mild ST depression. The patient had no chest pain. The patient was watched for at least 10 minutes having no chest pain. Blood pressure did improve to 80 and 90 systolic. The patient had a subsequent bradycardic arrest. This was witnessed. We were at bedside during the entirety of this time. The patient has been given atropine, epinephrine. A code team responded quickly. The patient was intubated appropriately with appropriate ACLS protocol was followed. Given hypotension and bradycardic after stress test, we decided to proceed with urgent heart catheterization. Approximately 60 minutes of critical care time were spent here. We did return a pulse with sinus tachycardia. The patient was intubated appropriately and appeared to be oxygenating well. ER and code team were present throughout. Please see cath report for further details. JOB# [id number] SBM/NTS
== END 2019-12-28 18:30 | DRG 247 ==
LOC: ED 11:27 → 4A 12:56 → CC1 14:03 → 4A 12-27 13:07 → CC1 12-27 13:58 → 4A 12-27 15:48
PROVIDERS: ADMIT Internal Medicine; ATTEND Internal Medicine
PROC: 4A023N7 Measurement of Cardiac Sampling and Pressure, Left Heart, Percutaneous Approach (ICD-10-PCS; principal; 2019-12-28)
PROC: 027034Z Dilation of Coronary Artery, One Artery with Drug-eluting Intraluminal Device, Percutaneous Approach (ICD-10-PCS; 2019-12-28)
PROC: B2111ZZ Fluoroscopy of Multiple Coronary Arteries using Low Osmolar Contrast (ICD-10-PCS; 2019-12-28)
PROC: 5A1223Z Performance of Cardiac Pacing, Continuous (ICD-10-PCS; 2019-12-28)
DX: I48.91 Unspecified atrial fibrillation (principal); I10 Essential (primary) hypertension; I25.10 Atherosclerotic heart disease of native coronary artery without angina pectoris; F41.1 Generalized anxiety disorder; F32.9 Major depressive disorder, single episode, unspecified; R09.02 Hypoxemia; E78.5 Hyperlipidemia, unspecified; I95.9 Hypotension, unspecified; R00.1 Bradycardia, unspecified; Z86.73 Personal history of transient ischemic attack (TIA), and cerebral infarction without residual deficits; Z82.49 Family history of ischemic heart disease and other diseases of the circulatory system; Z88.0 Allergy status to penicillin; Z79.899 Other long term (current) drug therapy; Z79.01 Long term (current) use of anticoagulants; Z87.891 Personal history of nicotine dependence
CPT/HCPCS: 33210; 36415; 71045; 78452; 80048; 80053; 80076; 81001; 82962; 83036; 83735; 84439; 84443; 84484; 85025; 85379; 85610; 85730; 92928; 93005; 93010; 93017; 93306; 93458; 96374; 96375; G0378; A9270-GY; A9502; C1725; C1769; C1874; C1887; C1894; C9600; J0171; J0461; J1265; J1644; J2250; J2405; J2785; J3010; J7030; J7040; J7050; Q9967